=== PATIENT | female | born 1955 | race Caucasian/White ===

== ENCOUNTER → 2020-02-20 07:07 | Outpatient (CLI) | payer MEDICARE, OTHER, SELFPAY ==
--- NOTE | ~2020-02-20 | MR_ITS ---
EXAMINATION: MR shoulder RT wo con DATE: 02/20/2020 07:47 INDICATION: Right shoulder pain. Other right shoulder lesions. TECHNIQUE: Magnetic resonance imaging (MRI) of the right shoulder was performed without intravenous c ontrast. Sequences included axial PD-weighted FS FSE, coronal oblique PD-weighted FS FSE and T2-weigh willis FS FSE, and sagittal oblique T2-weighted FS FSE and T1-weighted FSE. COMPARISON: Right shoulder radiographs 02/14/2020 FINDINGS: Coracoacromial arch: The acromion undersurface is curved in morphology (type II). There is severe acromioclavicular joint osteoarthritis. There is moderate subacromial/subdeltoid bursitis. Rotator cuff: There is severe supraspinatus and infraspinatus tendinopathy. There is a near full-thickness bursal s ided tear of supraspinatus and infraspinatus tendons measuring 2.9 cm anterior to posterior by up to 7 mm proximal to distal. Teres minor tendon is normal. There is moderate subscapularis tendinopathy. There is no asymmetric fatty atrophy of the rotator cuff muscle bellies. There is degenerative cystic change in greater tuberosity. Biceps tendon and glenoid labrum: Biceps tendon is in bicipital groove. There is a partial tear of intra-articular biceps tendon. There is degeneration of glenoid labrum without well-defined tear. Fluid: There is a small glenohumeral joint effusion. Bones/cartilage: There is cartilage surface irregularity of glenoid and humeral head. IMPRESSION: 1. Severe rotator cuff tendinopathy with near full-thickness bursal sided tear of supraspinatus and i nfraspinatus tendons. 2. Partial tear of intra-articular biceps tendon. 3. Mild glenohumeral joint chondrosis. 4. Severe acromioclavicular joint osteoarthritis. 5. Small glenohumeral joint effusion. 6. Moderate subacromial/subdeltoid bursitis. Reviewed, dictated and finalized at location A. CART ATTENDANT IMPRESSION: 1. Severe rotator cuff tendinopathy with near full-thickness bursal sided tear of supraspinatus and infraspinatus tendons. 2. Partial tear of intra-articular biceps tendon. 3. Mild glenohumeral joint chondrosis. 4. Severe acromioclavicular joint osteoarthritis. 5. Small glenohumeral joint effusion. 6. Moderate subacromial/subdeltoid bursitis.
== END ==
PROVIDERS: PCP Internal Medicine; Visit Provider Orthopaedic Surgery
DX: M75.81 Other shoulder lesions, right shoulder (principal); M19.011 Primary osteoarthritis, right shoulder; M75.51 Bursitis of right shoulder; M25.411 Effusion, right shoulder
CPT/HCPCS: 73221

== ENCOUNTER 2020-03-25 13:22 | Outpatient (CLI) | payer MEDICARE, SELFPAY ==
--- NOTE | 2020-03-25 13:24 | ECG_ITS ---
Measurements Intervals [place] Rate: 76 P: 60 NC: 187 QRS: -3 QRSD: 110 T: 60 QT: 396 QTc: 447 Interpretive Statements SINUS RHYTHM INCOMPLETE RIGHT BUNDLE BRANCH BLOCK CANNOT RULE OUT SEPTAL INFARCT, AGE INDETERMINATE ABNORMAL ECG Electronically Signed On 03-25-2020 15:24:24 MILITARY SCIENCE TEACHER by Neo Starks D.O.
== END 2020-03-25 13:23 | disposition home or self-care (01) ==
LOC: ANHSURGERY 13:24
PROVIDERS: PCP Internal Medicine; Visit Provider Orthopaedic Surgery
DX: Z01.818 Encounter for other preprocedural examination (principal); I10 Essential (primary) hypertension; I45.10 Unspecified right bundle-branch block
CPT/HCPCS: 93005

== ENCOUNTER 2020-03-30 00:50 | Outpatient (CLI) | payer MEDICARE, SELFPAY ==
[2020-03-30 19:31] LABS: SARS-CoV-2 RNA PCR Negative
== END 2020-03-30 00:51 | disposition home or self-care (01) ==
LOC: ANHCOVIDDT 00:50
PROVIDERS: PCP Internal Medicine; Visit Provider Orthopaedic Surgery
DX: Z01.818 Encounter for other preprocedural examination (principal); Z20.828 Contact with and (suspected) exposure to other viral communicable diseases
CPT/HCPCS: 87635; C9803; U0003

== ENCOUNTER 2020-04-02 00:04 | Day surgery (SDC) | payer MEDICARE, SELFPAY ==
[2020-03-25 11:18] VITALS: BMI 29.2
--- NOTE | 2020-04-01 12:52 | WPDANESEPPF ---
Anes - Initial Pre Proc Eval Procedure: Operation Date: 04/02/20 07:30 Proposed Procedures p Right Shoulder Arthroscopy, Rotator Cuff Repair, Subacromial Decompression, Proceed As Indicated - Shawn Erickson MD Date/Time: 04/01/20 12:52 Surgeon: Shawn Erickson MD Pre Op Diagnosis: Right Shoulder Rotator Cuff Tear Patient Data Age: 65 Gender: F Height: 1.6 m Weight: 74.85 kg Allergies Allergy/AdvReac Type Severity Reaction Status Date / Time codeine Allergy Unknown Itching Verified 04/02/20 06:25 hydroxychloroquine Allergy Unknown SWELLING Verified 04/02/20 06:25 [From Plaquenil] AND HIVES Home Medications Medication Instructions Recorded Confirmed Type alprazolam 0.5 mg tablet 0.5 mg PO .PRN tablet 02/27/19 04/02/20 History atorvastatin 40 mg tablet 40 mg PO DAILY 02/27/19 04/02/20 History citalopram 40 mg tablet 40 mg PO DAILY 02/27/19 04/02/20 History levothyroxine 75 mcg tablet 75 mcg PO DAILY 02/27/19 04/02/20 History losartan 50 mg tablet 100 mg PO DAILY 02/27/19 04/02/20 History meloxicam 15 mg tablet 15 mg PO DAILY 02/27/19 04/02/20 History sulfadiazine 500 mg tablet 500 mg PO 6XD 02/27/19 04/02/20 History cholecalciferol (vitamin D3) 50 mcg PO DAILY 03/25/20 04/02/20 History cyanocobalamin (vitamin B-12) 1,000 mcg PO DAILY 03/25/20 04/02/20 History hydrocodone 5 mg-acetaminophen 325 1 - 2 tablet PO Q6H PRN #30 tablet 03/25/20 03/25/20 Rx mg tablet omega-3 fatty acids [Fish Oil] 1,000 mg PO DAILY 03/25/20 04/02/20 History rituximab [Rituxan] 10 mg IV Q4M 03/25/20 04/02/20 History vitamin E 400 unit PO DAILY 03/25/20 04/02/20 History Patient hx anesthesia problems: none Family hx anesthesia problems: none PMFSH Past Medical History Medical History (Updated 02/21/20 @ 09:45 by Shawn Erickson MD) Essential hypertension Hypothyroidism Rheumatoid arthritis Rheumatoid arthritis involving left knee Right rotator cuff tendonitis Rotator cuff tear, right Surgical History Surgical History (Updated 04/01/20 @ 12:52 by Evaristo Villar DO) History of tubal ligation Hx of fusion of cervical spine C4-5 Family History Family History Father Heart disease Mother Heart disease Sibling Rheumatoid arthritis Social History Social History Smoking packs per day: 0.5 Smoking cigarettes per day: 10.0 Years smoked: 15 Smoking pack-years: 7.50 Smoking status: Former smoker Tobacco type: cigarettes Smoking end date: 04/05/14 Alcohol intake: current Drinks per week: 7 Living arrangements: with family Spiritual care concerns: No Anes - Eval Final PreProcedure Day of Procedure 04/01/20 12:52 Patient weight: overweight Heart: regular rate and rhythm Lungs: clear to auscultation and normal air movement Airway: Mallampati scale class II Neurological: alert and oriented Last oral intake: >/= 8 hours ASA classification: III Emergent: no Anesthetic plan: proceed Anesthesia type and monitoring: general ETT and standard monitoring Informed Consent: The patient's anesthetic plan and its attendant risks and benefits were discussed with the patient/family/POA. Questions were solicited and answers provided to the satisfaction of the patient/family/POA.
--- NOTE | 2020-04-01 12:53 | WPDANESPNB ---
Anes - Peripheral Nerve Block Date/Time: 04/01/20 12:53 I have discussed with the patient/family/POA the placement of a peripheral nerve block for post-operative pain management, including associated risks, benefits, complications, and side effects. Alternative methods of post-operative analgesia were detailed. Questions were solicited and answers provided to the satisfaction of the patient/family/POA. Time-Out: A pre-procedural Time-Out was completed immediately before starting the procedure and confirmed: Patient Identification, Site, Procedure, Patient Position and the Availability of Requisite Equipment. Clinical Indications: Acute post-operative pain management requested by the operative surgeon. Nerve Block Insertion Note Anes-nerve block: interscalene right Patient position: supine Skin prep: chlorhexidine Needle: 22 gauge, stimulating, insulated echogenic needle. Needle length: 50 mm Technique: nerve stimulation lost at (mA) (0.3) and ultrasound Injectate: bupivacaine 0.5% with epi 5 mcg/ml (30cc) Observations: tolerated well Complications: none Procedure start time:: 719 Procedure end time:: 723
[2020-04-02] VITALS (8 sets, daily range): BP systolic 99–136; BP diastolic 50–72; PULSE 66–78; RESP 14–20; TEMP 36.3–36.5; O2SAT 92–96
[2020-04-02] MEDS: ACETAMINOPHEN 500 MG TABLET 1000 MG PO (06:42)
[2020-04-02] MEDS: LACTATED RINGERS 1,000 ML 30 ML IV CONT ×2 (06:42→10:34)
[2020-04-02] MEDS: KETOROLAC 15 MG/ML VIAL (*BKC) IV PUSH (06:48)
--- NOTE | 2020-04-02 06:52 | WPDHPUPDATE1 ---
History and Physical Update Update Date/Time: 04/02/20 06:52 History and Physical has been reviewed, including an updated exam of the patient. There are NO changes in the patient's condition. Risks, benefits, and alternatives have been discussed and questions answered. Patient agrees to proceed with procedure.
[2020-04-02] MEDS: ceFAZolin 2 GM/D5W 50 ML 2 GM/50 ML BAG IVPB (07:30)
--- NOTE | 2020-04-02 10:43 | P.OP_ITS ---
Procedure Note - Detailed Date of procedure: 04/02/20 Pre-op diagnosis: Right Shoulder Rotator Cuff Tear Post-op diagnosis: other (1. Right shoulder rotator cuff tear 2. Biceps tendon tear) Procedure performed: 1. Arthrosocopic rotator cuff repair. 2. Arthroscopic subacromial decompression. 3. Bicpes tenotomy Description of procedure: The tear was in the full-thickness. Complex pattern with mild retraction. The supraspinatus was fairly mobile. There was some delamination that was less mobile posteriorly. A thrid posterior tunnel was used for the posterior/ infraspinatus cuff. Two tunnels were used for the supraspinatus and a more anterior infraspinatus. Margin convergence was used posterior and anterior. There was some posterior tissue remaining on the tuberosity which was preserved. A rip stop technique was utilized. A previous acromioplasty had some prominence lateral and anterior. Modest acromioplasty was performed. High-grade partial tearing of the intra-articular biceps was confirmed consistent with the MRI. Biceps tenotomy was performed. Anesthesia: GETA and regional Surgeon: Shawn Erickson MD Director Of Exhibits: Terrie Joyner PA-C Estimated blood loss (mL): 20 Complications: None Disposition: PACU Findings: Physician talent acquisition assistant, Terrie Joyner PA-C, required for surgery; including patient positioning, draping, tissue retraction, maintaining instrument position, suture management, wound closure, and sling/ dressing placement. Operative detail: Preoperative antibiotics were given. An interscalene block was administered in the preoperative area. The patient was bought brought to the operating room. A general anesthetic was administered. The patient was carefully positioned in the lateral decubitus position. The head and neck were carefully positioned. The non operative extremity was also carefully positioned. The shoulder was prepped and draped in the usual sterile fashion. Examination was performed. Standard posterior and anterior arthroscopic portals were established. Inflow achieved with the arthroscopic pump using saline and epinephrine. The glenohumeral joint was carefully inspected. The biceps was partial torn. Tenotomy was performed.The subscapularis had a low grade partial articular tear. No treatment indicated. Attention was turned to the subacromial space. A complete bursectomy was performed. The rotator cuff and footprint were lightly debrided. A modest acromioplasty was performed. The tear configuration was carefully assessed. At this point, 3 tunnels were created at the rotator cuff. The ArthroTunneler technique was utilized. Three sutures were passed through each tunnel. All sutures were then passed through the cuff tissue. The sutures were tied arthroscopically. The arthroscopic instruments were removed. The wou nds were closed with 3-0 Monocryl subcuticular suture and steri strips. There were no complications. A sling was applied and the patient brought to the recovery room.
--- NOTE | 2020-04-02 11:17 | SUR.PHASEI ---
PT REMAINS SLEEPY. DOZING IN INTERVALS. DENIES PAIN OR NAUSEA AT THIS TIME.
--- NOTE | 2020-04-02 11:26 | SUR.PHASEI ---
PT RESTING QUIETLY. AWAKENS EASILY. DENIES PAIN OR NAUSEA. READY FOR A DRINK.
== END 2020-04-02 12:34 | disposition home or self-care (01) ==
PROVIDERS: PCP Internal Medicine; Visit Provider Orthopaedic Surgery
PROC: (CPT 29805; principal; 2020-04-02 07:30)
DX: M75.101 Unspecified rotator cuff tear or rupture of right shoulder, not specified as traumatic (principal); M75.81 Other shoulder lesions, right shoulder; G89.18 Other acute postprocedural pain; I10 Essential (primary) hypertension; E03.9 Hypothyroidism, unspecified; M06.9 Rheumatoid arthritis, unspecified; Z98.1 Arthrodesis status; Z87.891 Personal history of nicotine dependence
CPT/HCPCS: 29827; 29826; 64415; A4565; A9270; J0690; J1885; J2250; J3010; J7120

== ENCOUNTER 2020-09-06 16:24 | Outpatient (CLI) | payer MEDICARE, SELFPAY ==
--- NOTE | ~2020-09-06 | MR_ITS ---
EXAMINATION: MR shoulder RT wo con DATE: 09/06/2020 17:34 INDICATION: Right rotator cuff tear. TECHNIQUE: Magnetic resonance imaging (MRI) of the right shoulder was performed without intravenous c ontrast. Sequences included axial PD-weighted FS FSE, coronal oblique PD-weighted FS FSE and T2-weigh willis FS FSE, and sagittal oblique T2-weighted FS FSE and T1-weighted FSE. COMPARISON: Right shoulder MRI 02/20/2020, radiographs 02/14/2020 FINDINGS: Coracoacromial arch: The acromion undersurface is curved in morphology (type II). There are changes of acromioplasty. Ther e is mild osteoarthritis of acromioclavicular joint. There is moderate subacromial/subdeltoid bursiti s. Rotator cuff: There is a full-thickness tear of supraspinatus and infraspinatus tendons measuring 4.2 cm anterior t o posterior by 3.5 cm proximal to distal. There is a partial tear of teres minor at the myotendinous junction with small hematoma. There is mild subscapularis tendinopathy. There is mild fatty atrophy o f infraspinatus muscle belly. There is edema of the infraspinatus and teres minor muscle bellies. Biceps tendon and glenoid labrum: There are changes of biceps tendon tear and tenotomy. There is degeneration of the glenoid labrum wit hout well-defined tear. Fluid: There is a moderate-sized glenohumeral joint effusion. Bones/cartilage: There is posterior and superior subluxation of humeral head with respect to glenoid. There is cartila ge surface irregularity of glenoid and humeral head. There is edema-like marrow signal intensity in p osterior glenoid. IMPRESSION: 1. Recurrent full-thickness rotator cuff tear. 2. Grade 1 infraspinatus muscle strain. Grade 2 teres minor muscle strain. 3. Mild glenohumeral joint chondrosis. 4. Biceps tendon tear and tenotomy. 5. Moderate-sized glenohumeral joint effusion and moderate subacromial/subdeltoid bursitis. 6. Mild acromioclavicular joint osteoarthritis. Reviewed, dictated and finalized at location A. IMPRESSION: 1. Recurrent full-thickness rotator cuff tear. 2. Grade 1 infraspinatus muscle strain. Grade 2 teres minor muscle strain. 3. Mild glenohumeral joint chondrosis. 4. Biceps tendon tear and tenotomy. 5. Moderate-sized glenohumeral joint effusion and moderate subacromial/subdelto id bursitis. 6. Mild acromioclavicular joint osteoarthritis.
== END 2020-09-06 16:25 | disposition home or self-care (01) ==
PROVIDERS: PCP Internal Medicine; Visit Provider Orthopaedic Surgery
DX: M19.011 Primary osteoarthritis, right shoulder (principal); M75.101 Unspecified rotator cuff tear or rupture of right shoulder, not specified as traumatic; M25.411 Effusion, right shoulder; Z98.890 Other specified postprocedural states
CPT/HCPCS: 73221

== ENCOUNTER 2020-10-09 07:54 | Outpatient (CLI) | payer MEDICARE, SELFPAY ==
[2020-10-09 09:14] LABS: Basophils Absolute Auto 0.1 K/mm3 (0.0-0.1); Basophils Percent Auto 1.4 % (0.2-1.2); Eosinophils Absolute Auto 0.5 K/mm3 (0-0.3); Eosinophils Percent Auto 9.3 % (0-4.4); Hematocrit 44.2 % (37.0-47.0); Hemoglobin 14.5 g/dL (12.0-15.0); Immature Granulocyte Absolute 0.01 K/mm3 (0.00-0.031); Immature Granulocyte Percent A 0.2 % (0-0.5); Lymphocytes Absolute Auto 1.08 K/mm3 (0.9-3.2); Lymphocytes Percent Auto 21.5 % (18.3-44.2); Mean Corpuscular HGB Conc 32.8 g/dl (32-36); Mean Corpuscular Hemoglobin 31.4 pg (26-34); Mean Corpuscular Volume 95.7 fl (80-100); Mean Platelet Volume 10.3 fl (7.4-10.4); Monocytes Absolute Auto 0.7 K/mm3 (0.1-0.6); Monocytes Percent Auto 14.3 % (2.6-8.5); Neutrophils Absolute Auto 2.7 K/mm3 (1.3-6.7); Neutrophils Percent Auto 53.3 % (45.5-73.1); Platelet Count Result 232 k/mm3 (150-375); Red Blood Count 4.62 M/mm3 (4.2-5.4); Red Cell Distribution Width 12.1 % (11.5-14.5)
[2020-10-09 09:23] LABS: Anion Gap 7 mmol/L (8-16); Blood Urea Nitrogen 12 mg/dL (7-17); Calcium 10.1 mg/dL (8.4-10.2); Carbon Dioxide 27 mmol/L (22-30); Chloride 106 mmol/L (98-107); Estimated Glomerular Filt Rate > 60; Glucose 113 mg/dL (65-105); Potassium 4.1 mmol/L (3.4-5.0); Sodium 140 mmol/L (137-145)
== END 2020-10-09 07:55 | disposition home or self-care (01) ==
LOC: ANHSURGERY 07:57
PROVIDERS: Anesthesiology; PCP Internal Medicine; Visit Provider Orthopaedic Surgery
DX: Z01.818 Encounter for other preprocedural examination (principal); M12.811 Other specific arthropathies, not elsewhere classified, right shoulder; Z79.899 Other long term (current) drug therapy
CPT/HCPCS: 36415; 80048; 85025; 87081

== ENCOUNTER 2020-10-25 00:56 | Day surgery (SDC) | payer MEDICARE, SELFPAY ==
[2020-10-09 08:24] VITALS: BP 131/74; PULSE 69; RESP 16; TEMP 36.6; O2SAT 95; BMI 28.2
--- NOTE | 2020-10-24 14:15 | WPDANESEPPF ---
Anes - Initial Pre Proc Eval Procedure: Operation Date: 10/25/20 07:30 Proposed Procedures p Right Reverse Total Shoulder Arthroplasty - Shawn Erickson MD Date/Time: 10/24/20 14:15 Surgeon: Shawn Erickson MD Pre Op Diagnosis: rotator cuff arthropathy Patient Data Age: 65 Gender: F Height: 1.6 m Weight: 72.3 kg Last Vital Signs Temp 36.6 C 10/09/20 08:24 Pulse 69 10/09/20 08:24 Resp 16 10/09/20 08:24 BP 131/74 10/09/20 08:24 Pulse Ox 95 10/09/20 08:24 Allergies Allergy/AdvReac Type Severity Reaction Status Date / Time hydroxychloroquine Allergy Unknown SWELLING Verified 10/25/20 06:42 [From Plaquenil] AND HIVES codeine AdvReac Unknown Itching Verified 10/25/20 06:42 Home Medications Medication Instructions Recorded Confirmed Type alprazolam 0.5 mg tablet 0.5 mg PO QID PRN tablet 02/27/19 10/25/20 History atorvastatin 40 mg tablet 40 mg PO DAILY 02/27/19 10/09/20 History citalopram 40 mg tablet 40 mg PO QAM 02/27/19 10/09/20 History levothyroxine 75 mcg tablet 75 mcg PO QAM 02/27/19 10/09/20 History losartan 50 mg tablet 50 mg PO QAM 02/27/19 10/09/20 History meloxicam 15 mg tablet 15 mg PO QAM 02/27/19 10/09/20 History Rituxan 10 mg IV Q4M 03/25/20 10/09/20 History cholecalciferol (vitamin D3) 50 mcg PO DAILY 03/25/20 10/09/20 History cyanocobalamin (vitamin B-12) 1,000 mcg PO DAILY 03/25/20 10/09/20 History vitamin E 400 unit PO DAILY 03/25/20 10/09/20 History amlodipine 5 mg PO QAM 10/09/20 10/09/20 History krill oil 1,000 mg PO DAILY 10/09/20 10/09/20 History leflunomide 10 mg PO QAM 10/09/20 10/09/20 History magnesium oxide 400 mg PO DAILY 10/09/20 10/09/20 History spironolactone 25 mg PO QAM 10/09/20 10/09/20 History oxycodone-acetaminophen 5 mg-325 1 - 2 tablet PO Q4-6H PRN #40 10/14/20 Rx mg tablet tablet Patient hx anesthesia problems: none Family hx anesthesia problems: none PMFSH Past Medical History Medical History (Updated 10/24/20 @ 14:16 by Evaristo Villar DO) Essential hypertension Hypothyroidism Panic attack Rheumatoid arthritis Rheumatoid arthritis involving left knee Right rotator cuff tendonitis Rotator cuff tear, right Surgical History Surgical History (Updated 08/28/20 @ 15:23 by Shawn Erickson MD) History of repair of right rotator cuff (~04/02/20) RCR w/ SAD and Biceps tenotomy History of tubal ligation Hx of fusion of cervical spine C4-5 Family History Family History Father Heart disease Mother Heart disease Sibling Rheumatoid arthritis Social History Social History Smoking packs per day: 0.5 Smoking cigarettes per day: 10.0 Years smoked: 15 Smoking pack-years: 7.50 Smoking status: Former smoker Tobacco type: cigarettes Smoking end date: 03/04/16 Alcohol intake: current Drinks per week: 14 Alcohol use details: weekly Substance use: never Living arrangements: with family Additional living arrangements comments: Spiritual care concerns: No Anes - Eval Final PreProcedure Day of Procedure 10/24/20 14:15 Patient weight: overweight Heart: regular rate and rhythm Lungs: clear to auscultation and normal air movement Airway: Mallampati scale class II Neurological: alert and oriented Last oral intake: >/= 8 hours ASA classification: III Emergent: no Anesthetic plan: proceed Anesthesia type and monitoring: general ETT and standard monitoring Informed Consent: The patient's anesthetic plan and its attendant risks and benefits were discussed with the patient/family/POA. Questions were solicited and answers provided to the satisfaction of the patient/family/POA.
--- NOTE | 2020-10-24 14:22 | WPDANESPNB ---
Anes - Peripheral Nerve Block Date/Time: 10/24/20 14:22 I have discussed with the patient/family/POA the placement of a peripheral nerve block for post-operative pain management, including associated risks, benefits, complications, and side effects. Alternative methods of post-operative analgesia were detailed. Questions were solicited and answers provided to the satisfaction of the patient/family/POA. Time-Out: A pre-procedural Time-Out was completed immediately before starting the procedure and confirmed: Patient Identification, Site, Procedure, Patient Position and the Availability of Requisite Equipment. Clinical Indications: Acute post-operative pain management requested by the operative surgeon. Nerve Block Insertion Note Anes-nerve block: interscalene right Patient position: supine Skin prep: chlorhexidine Needle: 22 gauge, stimulating, insulated echogenic needle. Needle length: 50 mm Technique: ultrasound Injectate: bupivacaine 0.5% with epi 5 mcg/ml (30cc- no epi) Observations: tolerated well Complications: none Procedure start time:: 723 Procedure end time:: 726
[2020-10-25] VITALS (9 sets, daily range): BP systolic 88–119; BP diastolic 43–58; PULSE 67–95; RESP 15–17; TEMP 35.9–36.2; O2SAT 91–98
--- NOTE | ~2020-10-25 | XR_ITS ---
EXAMINATION: XR shoulder RT min 2V DATE: 10/25/2020 10:17 INDICATION: Persistent right total shoulder arthroplasty TECHNIQUE: AP and lateral views of the right shoulder were obtained. COMPARISON: None FINDINGS: Reverse right total shoulder arthroplasty which is in near-anatomic alignment. No fracture. Mild acro mioclavicular osteoarthritis. Expected small amount of postoperative gas in the surrounding soft tiss ues. Visualized portion of the right lung are clear. IMPRESSION: Reverse right total shoulder arthroplasty, negative for postoperative purposes. Reviewed, dictated and finalized at location A.
[2020-10-25] MEDS: ACETAMINOPHEN 500 MG TABLET 1000 MG PO (06:50)
[2020-10-25] MEDS: LACTATED RINGERS 1,000 ML 30 ML IV CONT ×2 (07:10→10:07)
[2020-10-25] MEDS: TRANEXAMIC ACID 1,000MG/ISO100 1,000 MG/100 ML BAG 200 MG IVPB (07:13)
--- NOTE | 2020-10-25 07:25 | WPDHPUPDATE1 ---
History and Physical Update Update Date/Time: 10/25/20 07:25 History and Physical has been reviewed, including an updated exam of the patient. There are NO changes in the patient's condition. Risks, benefits, and alternatives have been discussed and questions answered. Patient agrees to proceed with procedure.
[2020-10-25] MEDS: ceFAZolin 2 GM/D5W 50 ML 2 GM/50 ML BAG IVPB (07:30)
[2020-10-25] MEDS: VANCOMYCIN HCL 1,000 MG VIAL 1000 MG TOPICAL (09:36)
--- NOTE | 2020-10-25 10:22 | SUR.PHASEI ---
1022: simple mask removed.
--- NOTE | 2020-10-25 11:44 | SUR.PHASEII ---
LUNCH ORDERED; PT CALLED.
--- NOTE | 2020-10-25 11:48 | W.PM.PROC2 ---
Procedure Note - Detailed Date of Procedure 10/25/20 Pre-op Diagnosis Rotator cuff arthropathy, right shoulder Massive rotator cuff tear status post rotator cuff repair, right shoulder Post-op Diagnosis same Procedure Performed Reverse total shoulder arthroplasty, right. Surgeon Shawn Erickson MD Bleach Supervisor Terrie Joyner PA-C Anesthesia general and regional Findings Massive tear without significant healing of the previous repair. Posterior rotator cuff intact. Mild degenerative changes. Good bone quality. Description of Procedure Physician pediatric medical assistant, Terrie Joyner PA-C, required for surgery; including patient positioning, draping, tissue retraction, maintaining instrument position, wound closure, and dressing placement. OPERATIVE DETAILS: The patient was given an interscalene block in the preoperative area. Preoperative antibiotics were given. The patient was transferred to the operating room and a general anesthetic was administered. The beach chair position was used at 45 degrees. All bony prominences were padded. The head was carefully stabilized on the [facility] head of advertising. A sterile prep and drape was performed in the usual manner with Chloraprep. A longitudinal incision was created at the anterior shoulder just lateral to the deltopectoral interval. Careful dissection was performed to expose the interval and protect the cephalic vein. The vein was retracted medially. Several vein branches proximally were friable and scarred in. They required suture ligation. The upper border of the pectoralis was released only minimally. Anterior circumflex vessel branches were suture ligated. The biceps absent. A subscapularis tenotomy was performed. The inferior capsule was released, exposing the humeral head. Osteophytes were removed. Care was taken to stay on bone to protect the axillary nerve. The anatomic head cut was taken with the oscillating saw. Sounding and broaching was performed. The neck anteversion and inclination were carefully assessed. Head sizing and offset were determined.The cut protector was placed, and attention was turned to the glenoid. Retractors were placed. Releases were carried out for exposure. The subscapularis was mobilized, the inferior capsule and long head of triceps released, and the superior and middle glenohumeral ligaments released as well. Labral tissue was resected as needed. The sizing template was used to assess the baseplate position low on the glenoid. A guide pin was placed. The two step reaming system was used. Minimal reaming was used to accomplish a flat surface without violating the subchondral bone. No version correction added, according to preoperative templating. The central post was drilled. The real component was impacted into position. Supplemental screws were placed. The glenosphere was placed with the locking screw. The humeral components were trialed. The real humeral stem and tray, and insert were impacted into position. The shoulder was copiously irrigated periodically with pulsatile lavage. The shoulder was reduced and the subscapularis repaired with number 5 Ethibond suture modified miguel Satya sutures. The biceps tenodesis was incorporated with the pectoralis tendon repair. The deltopectoral space was reapproximated with number 2 Vicryl. The remained tissue was closed with 0 Quill and 2-0 Quill running suture and steri-strips. A sterile dressing and shoulder immobilizer was placed. The patient was transferred to the recovery room. Implants Miguel Aequalis reversed glenoid base plate 25mm, reversed insert 6mm thickness; Aequalis Ascend Flex humeral stem size 1B. Aequalis Reversed II glenoid sphere 36 diameter 10 degree lateralized; Reversed tray low offset. Estimated Blood Loss -200.0 Drains No Complications No immediate complications Condition stable Disposition PACU
--- NOTE | 2020-10-25 13:44 | SUR.PHASEII ---
PHYSICAL THERAPIST YAMILET WORKED WITH PATIENT. DR. KELLY CALLED TO RELAY PATIENT HAD PHYSICAL THERAPY AND MET ANESTHESIA CRITERIA FOR DISCHARGE. PATIENT ATE LIGHT LUNCH. DR. KELLY CAME TO SPEAK WITH PATIENT AND SPOUSE.
--- NOTE | 2020-10-25 13:45 | SUR.PHASEII ---
PATIENT ASSISTED GETTING DRESSED BY THIS RN AND .
== END 2020-10-25 13:05 | disposition home or self-care (01) ==
PROVIDERS: PCP Internal Medicine; Visit Provider Orthopaedic Surgery
PROC: (CPT 23472; principal; 2020-10-25 07:30)
DX: M75.101 Unspecified rotator cuff tear or rupture of right shoulder, not specified as traumatic (principal); M12.811 Other specific arthropathies, not elsewhere classified, right shoulder; E03.9 Hypothyroidism, unspecified; M06.9 Rheumatoid arthritis, unspecified; F41.0 Panic disorder [episodic paroxysmal anxiety]; Z87.891 Personal history of nicotine dependence; G89.18 Other acute postprocedural pain; I10 Essential (primary) hypertension
CPT/HCPCS: 64415; 23472; 36415; 73030; 86850; 86900; 86901; 97110; 97161; A4565; A9270; C1776; J0171; J0330; J0690; J1100; J1885; J2250; J2370; J2405; J2704; J2710; J2795; J3010; J3370; J7120

== ENCOUNTER 2021-12-11 01:55 | Day surgery (SDC) | payer MEDICARE, SELFPAY ==
[2021-12-04 09:45] VITALS: BMI 28.9
[2021-12-11 08:31] VITALS: BP 133/66; PULSE 82; RESP 16; TEMP 36.4; O2SAT 97
[2021-12-11] MEDS: LACTATED RINGERS 1,000 ML 150 ML IV CONT (08:37)
--- NOTE | 2021-12-11 08:48 | WPDANESEPPF ---
Anes - Initial Pre Proc Eval Procedure: Operation Date: 12/11/21 09:30 Proposed Procedures p Colonoscopy - Db De La Paz MD Date/Time: 12/11/21 08:48 Surgeon: Db De La Paz MD Pre Op Diagnosis: diarrhea Patient Data Age: 66 Gender: F Height: 1.6 m Weight: 74.2 kg Last Vital Signs Temp 97.5 F L 12/11/21 08:31 Pulse 82 12/11/21 08:31 Resp 16 12/11/21 08:31 BP 133/66 12/11/21 08:31 Pulse Ox 97 12/11/21 08:31 O2 Del Method Room Air 12/11/21 08:31 Allergies Allergy/AdvReac Type Severity Reaction Status Date / Time hydroxychloroquine Allergy Unknown SWELLING Verified 12/11/21 08:27 [From Plaquenil] AND HIVES codeine AdvReac Unknown Itching Verified 12/11/21 08:27 Home Medications Medication Instructions Recorded Confirmed Type alprazolam 0.5 mg tablet (Xanax) 0.5 mg PO QID PRN Anxiety 02/27/19 12/11/21 History atorvastatin 40 mg tablet 40 mg PO DAILY 02/27/19 12/11/21 History citalopram 40 mg tablet (Celexa) 40 mg PO QAM 02/27/19 12/11/21 History levothyroxine 75 mcg tablet 75 mcg PO QAM 02/27/19 12/11/21 History (Synthroid) losartan 50 mg tablet 50 mg PO QAM 02/27/19 12/11/21 History cholecalciferol (vitamin D3) 50 50 mcg PO DAILY 03/25/20 12/11/21 History mcg (2,000 unit) tablet cyanocobalamin (vitamin B-12) 1,000 mcg PO DAILY 03/25/20 12/11/21 History 1,000 mcg tablet rituximab 10 mg/mL 10 mg IV Q4M 03/25/20 12/11/21 History concentrate,intravenous (Rituxan) vitamin E 400 unit tablet 400 unit PO DAILY 03/25/20 12/11/21 History amlodipine 5 mg tablet 5 mg PO QAM 10/09/20 12/11/21 History krill oil 500 mg capsule 1,000 mg PO DAILY 10/09/20 12/11/21 History leflunomide 10 mg tablet 10 mg PO QAM 10/09/20 12/11/21 History magnesium oxide 400 mg PO DAILY 10/09/20 12/11/21 History spironolactone 25 mg tablet 25 mg PO QAM 10/09/20 12/11/21 History Patient hx anesthesia problems: none Family hx anesthesia problems: none Results Review: All pre-operative results and documents have been reviewed as part of the pre-operative evaluation. [facility] Past Medical History Medical History (Updated 03/12/21 @ 17:22 by Shawn Erickson MD) Essential hypertension Hypothyroidism Panic attack Rheumatoid arthritis Rheumatoid arthritis involving left knee Right rotator cuff tendonitis Rotator cuff tear, right Surgical History Surgical History (Updated 03/12/21 @ 17:22 by Shawn Erickson MD) History of repair of right rotator cuff (~04/02/20) RCR w/ SAD and Biceps tenotomy History of tubal ligation Hx of fusion of cervical spine C4-5 Status post reverse total arthroplasty of right shoulder Family History Family History Father Heart disease Mother Heart disease Sibling Rheumatoid arthritis Social History Social History (Updated 12/04/21 @ 09:59 by Eliana Orellana RN) Smoking packs per day: 0.5 Smoking cigarettes per day: 10.0 Years smoked: 15 Smoking pack-years: 7.50 Smoking status: Former smoker Tobacco type: cigarettes Smoking end date: 03/04/16 Alcohol intake: current Drinks per week: 14 Alcohol use details: weekly Substance use: never Living arrangements: with family Additional living arrangements comments: Spiritual care concerns: No Anes - Eval Final PreProcedure Day of Procedure 12/11/21 08:48 Patient weight: normal Heart: regular rate and rhythm Lungs: clear to auscultation Airway: Mallampati scale class II Neurological: alert and oriented Last oral intake: >/= 8 hours ASA classification: III Emergent: no Anesthetic plan: proceed Anesthesia type and monitoring: general GIVS and standard monitoring Results Review: All pre-operative results and documents have been reviewed as part of the pre-operative evaluation. Informed Consent: The patient's anesthetic plan and its attendant risks and benefits were discussed with the patient/fam
--- NOTE | 2021-12-11 08:53 | PM.IMHP ---
H&P: HPI History of Present Illness Date/Time: 12/11/21 08:53 Chief Complaint: Diarrhea Narrative: this is a 66-year-old white female patient referred for colonoscopy. Patient reports a history of travel to [place] in May of this year. In July she began to have diarrhea that has persisted. She states she has watery stool several times a day. This does not wake her up at night. She has no abdominal pain. She has no bleeding. She states stool cultures were obtained found to be negative. She has had no recent change in medications. Currently takes Imodium AD for relief. She has also tried probiotics with no relief of symptoms. She is referred for colonoscopy at this time. She has had a previous unremarkable colonoscopy performed for screening purposes in the past. Review of Systems Review of Systems: Review of systems noncontributory. [facility] Past Medical History Medical History (Updated 12/11/21 @ 08:55 by Db De La Paz MD) Essential hypertension Hypothyroidism Panic attack Rheumatoid arthritis Rheumatoid arthritis involving left knee Right rotator cuff tendonitis Rotator cuff tear, right Surgical History Surgical History (Updated 03/12/21 @ 17:22 by Shawn Erickson MD) History of repair of right rotator cuff (~04/02/20) RCR w/ SAD and Biceps tenotomy History of tubal ligation Hx of fusion of cervical spine C4-5 Status post reverse total arthroplasty of right shoulder Family History Family History Father Heart disease Mother Heart disease Sibling Rheumatoid arthritis Social History Social History (Updated 12/04/21 @ 09:59 by Eliana Orellana RN) Smoking packs per day: 0.5 Smoking cigarettes per day: 10.0 Years smoked: 15 Smoking pack-years: 7.50 Smoking status: Former smoker Tobacco type: cigarettes Smoking end date: 03/04/16 Alcohol intake: current Drinks per week: 14 Alcohol use details: weekly Substance use: never Living arrangements: with family Additional living arrangements comments: Spiritual care concerns: No Meds Home Medications and Allergies Home Medications Medication Instructions Recorded Confirmed Type alprazolam 0.5 mg tablet (Xanax) 0.5 mg PO QID PRN Anxiety 02/27/19 12/11/21 History atorvastatin 40 mg tablet 40 mg PO DAILY 02/27/19 12/11/21 History citalopram 40 mg tablet (Celexa) 40 mg PO QAM 02/27/19 12/11/21 History levothyroxine 75 mcg tablet 75 mcg PO QAM 02/27/19 12/11/21 History (Synthroid) losartan 50 mg tablet 50 mg PO QAM 02/27/19 12/11/21 History cholecalciferol (vitamin D3) 50 50 mcg PO DAILY 03/25/20 12/11/21 History mcg (2,000 unit) tablet cyanocobalamin (vitamin B-12) 1,000 mcg PO DAILY 03/25/20 12/11/21 History 1,000 mcg tablet rituximab 10 mg/mL 10 mg IV Q4M 03/25/20 12/11/21 History concentrate,intravenous (Rituxan) vitamin E 400 unit tablet 400 unit PO DAILY 03/25/20 12/11/21 History amlodipine 5 mg tablet 5 mg PO QAM 10/09/20 12/11/21 History krill oil 500 mg capsule 1,000 mg PO DAILY 10/09/20 12/11/21 History leflunomide 10 mg tablet 10 mg PO QAM 10/09/20 12/11/21 History magnesium oxide 400 mg PO DAILY 10/09/20 12/11/21 History spironolactone 25 mg tablet 25 mg PO QAM 10/09/20 12/11/21 History Allergies Allergy/AdvReac Type Severity Reaction Status Date / Time hydroxychloroquine Allergy Unknown SWELLING Verified 12/11/21 08:27 [From Plaquenil] AND HIVES codeine AdvReac Unknown Itching Verified 12/11/21 08:27 Vital Signs Vital Signs - 24 hr 12/11/21 08:31 Temperature 97.5 F L Pulse Rate 82 Respiratory Rate 16 Blood Pressure 133/66 Pulse Oximetry 97 Oxygen Delivery Room Air Exam Narrative: Physical exam reveals patient to be alert. Vital signs stable. HEENT exam is unremarkable. Patient is anicteric. Lungs are clear to auscultation and percussion. Heart is without murmur or extra sounds. Ab
[2021-12-11 09:21] VITALS: BP 114/49; PULSE 82; RESP 16; O2SAT 97
[2021-12-11 09:31] VITALS: BP 107/61; PULSE 84; RESP 20; O2SAT 99
[2021-12-11 09:41] VITALS: BP 126/57; PULSE 75; RESP 21; O2SAT 96
== END 2021-12-11 09:54 | disposition home or self-care (01) ==
PROVIDERS: PCP Internal Medicine; Visit Provider Internal Medicine Gastroenterology
PROC: 0DJD8ZZ Inspection of Lower Intestinal Tract, Via Natural or Artificial Opening Endoscopic (ICD-10-PCS; CPT 45378; principal; 2021-12-11 09:30)
DX: R19.7 Diarrhea, unspecified (principal); K64.8 Other hemorrhoids; I10 Essential (primary) hypertension; E03.9 Hypothyroidism, unspecified; M06.9 Rheumatoid arthritis, unspecified; Z98.1 Arthrodesis status; Z87.891 Personal history of nicotine dependence
CPT/HCPCS: 45380; 88305; J2704; J7120

== ENCOUNTER → 2021-12-24 13:55 | Outpatient (CLI) | payer MEDICARE, SELFPAY ==
--- NOTE | ~2021-12-24 | MM_ITS ---
EXAMINATION: MM screening pearl BI w tyson HISTORY: Screening mammogram, family history of breast cancer in her sister. TECHNIQUE: Craniocaudal and mediolateral oblique 3-D tomosynthesis images were obtained and synthetic 2-D images were generated. CAD analysis was submitted and interpreted. COMPARISON: 02/22/2017 BREAST PARENCHYMAL COMPOSITION: The breasts are almost entirely fatty. FINDINGS: There is no suspicious mass, calcification, or architectural distortion to suggest malignan cy in either breast. There has been no suspicious interval change. IMPRESSION: 1. No mammographic evidence of malignancy. 2. Recommend routine screening mammography in one year. BI-RADS Category 1: Negative Reviewed, dictated and finalized at location A.
== END ==
PROVIDERS: PCP Internal Medicine; Visit Provider Internal Medicine
DX: Z12.31 Encounter for screening mammogram for malignant neoplasm of breast (principal)
CPT/HCPCS: 77063; 77067

== ENCOUNTER → 2022-02-18 09:41 | Outpatient (CLI) | payer MEDICARE, SELFPAY ==
--- NOTE | ~2022-02-18 | XR_ITS ---
EXAMINATION: XR small bowel follow through DATE: 02/18/2022 10:47 INDICATION: Diarrhea, bloating and abdominal pain. TECHNIQUE: Network Security Officer radiograph(s) of the abdomen was/were obtained. Oral contrast was administered, and sequential radiographs of the abdomen were obtained until oral contrast was noted to be in the proxi mal colon. Spot fluoroscopic images of the small bowel were obtained. Fluoroscopy exposure time was 3 .0 minutes. 339 fluoroscopic images of the abdomen and pelvis and 3 overhead radiographs were obtaine d. COMPARISON: None. FINDINGS: On the 15 minute overhead radiograph there is prominent contrast distention stomach with reflux of a moderate amount of contrast to the level of the mid thoracic esophagus. Transit time from the stomach to proximal colon was approximately 30 minutes. There is normal caliber and mucosal fold pattern thr oughout the small bowel. The cecum and terminal ileum are positioned in the deep pelvis along side a few additional loops of small bowel precluding clear visualization of the terminal ileum. The proxima l ascending colon appears stretched over the right ilium/innominate bone with appearance of longitudi nal folds within the decompressed and with relatively ahaustral pattern when transiently filled with contrast. No tethering or abnormal mass effect observed upon the small bowel with real-time fluorosco py. IMPRESSION: 1. Caudal position within the deep pelvis of the cecum and terminal ileum which obscures the terminal ileum. The more proximal small bowel appears normal with normal mucosal pattern and no obstruction. 2. Segment of proximal ascending colon which is intermittently decompressed with a haustral pattern w hich may be an artifact of the caudal positioning of the cecum with a descending colon stretched acro ss the caudal margin of the ilium. 3. Gastroesophageal reflux. Reviewed, dictated and finalized at location B. MAPPER IMPRESSION: 1. Caudal position within the deep pelvis of the cecum and terminal ileum which obscures the terminal ileum. The more proximal small bowel appears normal with normal mucosal pattern and no obstruction. 2. Segment of proximal ascending colon which is intermittently decompressed wit h a haustral pattern which may be an artifact of the caudal positioning of the cecum with a descending colon stretched across the caudal margin of the ilium. 3. Gastroesophageal reflux.
== END ==
PROVIDERS: PCP Internal Medicine; Visit Provider Internal Medicine Gastroenterology
DX: R19.7 Diarrhea, unspecified (principal); R14.0 Abdominal distension (gaseous); K21.9 Gastro-esophageal reflux disease without esophagitis
CPT/HCPCS: 74250

== ENCOUNTER 2022-03-09 11:17 | Emergency (ER) | payer MEDICARE, SELFPAY ==
--- NOTE | 2022-03-09 11:21 | ED.BACK ---
HPI - Back Pain/Injury General Chief Complaint: Back Pain/Injury Stated Complaint: Back Pain Time Seen by Provider: 03/09/22 11:54 Source: patient, family (), RN notes reviewed and old records reviewed Mode of arrival: ambulatory Limitations: no limitations History of Present Illness HPI Narrative: [age] year female presents to the [facility] with left lower back pain. States this started Wednesday, 5 days ago. Pain to the left upper buttock. The pain is with movement, changing of position. No saddle anesthesia. No loss retention of bowel or bladder. No injury. No midline tenderness. MD elicited complaint: back pain Onset (ago): day(s) (5) Related Data Home Medications Medication Instructions Recorded Confirmed alprazolam 0.5 mg tablet (Xanax) 0.5 mg PO QID PRN Anxiety 02/27/19 03/09/22 atorvastatin 40 mg tablet 40 mg PO DAILY 02/27/19 03/09/22 citalopram 40 mg tablet (Celexa) 40 mg PO QAM 02/27/19 03/09/22 levothyroxine 75 mcg tablet 75 mcg PO QAM 02/27/19 03/09/22 (Synthroid) losartan 50 mg tablet 50 mg PO QAM 02/27/19 03/09/22 cholecalciferol (vitamin D3) 50 50 mcg PO DAILY 03/25/20 03/09/22 mcg (2,000 unit) tablet cyanocobalamin (vitamin B-12) 1,000 mcg PO DAILY 03/25/20 03/09/22 1,000 mcg tablet rituximab 10 mg/mL 10 mg IV Q4M 03/25/20 03/09/22 concentrate,intravenous (Rituxan) vitamin E 400 unit tablet 400 unit PO DAILY 03/25/20 03/09/22 amlodipine 5 mg tablet 5 mg PO QAM 10/09/20 03/09/22 leflunomide 10 mg tablet 10 mg PO QAM 10/09/20 03/09/22 spironolactone 25 mg tablet 25 mg PO QAM 10/09/20 03/09/22 celecoxib 200 mg capsule 200 mg PO DAILY 02/11/22 03/09/22 estradiol 0.5 mg tablet 0.5 mg PO DAILY 02/11/22 03/09/22 Allergies Allergy/AdvReac Type Severity Reaction Status Date / Time hydroxychloroquine Allergy Unknown SWELLING Verified 03/09/22 11:18 [From Plaquenil] AND HIVES codeine AdvReac Unknown Itching Verified 03/09/22 11:18 Review of Systems Review of Systems: All systems reviewed & are unremarkable except as noted in HPI and below Constitutional: Constitutional: Reports no additional constitutional complaints and Denies weakness Eyes: Eyes: Reports no additional eye complaints ENT: Reports system reviewed and no additional complaints, except as documented Cardiovascular: Cardiovascular: Reports no additional cardiovascular complaints and Denies chest pain Respiratory: Respiratory: Reports no additional respiratory complaints Gastrointestinal: Gastrointestinal: Reports no additional gastrointestinal complaints and Denies abdominal pain Genitourinary: Genitourinary: Reports no additional female genitourinary complaints, Denies urinary incontinence and Denies urinary urgency Musculoskeletal: Musculoskeletal: Reports as per HPI, Reports back pain and Denies numbness Integumentary/Breasts: Skin/Breast: Reports system reviewed and no additional complaints, except as docu Neurologic: Reports system reviewed and no additional complaints, except as documented, Denies focal weakness, Denies numbness and Denies weakness Psychiatric: Psychiatric: Reports no additional psychiatric complaints Allergic/Immunologic: Allergic/Immunologic: Reports no additional allergic/immunologic complaints PMFSH Past Medical History Medical History (Updated 03/09/22 @ 12:00 by Chanel Weber APRN) Essential hypertension Hypothyroidism Panic attack Rheumatoid arthritis Rheumatoid arthritis involving left knee Right rotator cuff tendonitis Rotator cuff tear, right Surgical History Surgical History History of repair of right rotator cuff (~04/02/20) RCR w/ SAD and Biceps tenotomy History of tubal ligation Hx of fusion of cervical spine C4-5 Status post reverse total arthroplasty of right shoulder Family History Family History Father Heart disease Mother Heart disease
[2022-03-09 11:25] VITALS: BP 124/69; PULSE 86; RESP 12; TEMP 36.4; O2SAT 97
== END 2022-03-09 12:08 | disposition home or self-care (01) ==
PROVIDERS: Emergency Provider Nurse Practitioner; PCP Internal Medicine
DX: M54.32 Sciatica, left side (principal); Z87.891 Personal history of nicotine dependence; I10 Essential (primary) hypertension; E03.9 Hypothyroidism, unspecified; M06.9 Rheumatoid arthritis, unspecified; F41.0 Panic disorder [episodic paroxysmal anxiety]
CPT/HCPCS: 99213; G0463

== ENCOUNTER → 2022-03-12 14:53 | Outpatient (CLI) | payer MEDICARE, SELFPAY ==
--- NOTE | ~2022-03-12 | XR_ITS ---
XR lumbar spine 2-3V 03/12/2022 15:13 Indication: Low back pain Procedure: 3 views lumbar spine Comparison: 03/22/2017 Findings: There is disc narrowing at L5-S1. Vertebral body heights are maintained. No acute fracture or traumatic malalignment. Pedicles are intact. No evidence for spondylolisthesis. There is mild face t hypertrophy at L4-5 and L5-S1. Impression: 1: Mild-moderate lower lumbar spondylosis. Reviewed, dictated and finalized at location A. ICAL PUNCH OPERATOR Impression: 1: Mild-moderate lower lumbar spondylosis.
== END ==
PROVIDERS: PCP Internal Medicine; Visit Provider Nurse Practitioner
DX: M47.896 Other spondylosis, lumbar region (principal)
CPT/HCPCS: 72100

== ENCOUNTER 2022-03-31 07:41 | Outpatient (CLI) | payer MEDICARE, SELFPAY ==
--- NOTE | ~2022-03-31 | CT_ITS ---
CT Abdomen and Pelvis with contrast. History: Diarrhea. Spiral CT of the abdomen and pelvis was performed after the administration of intravenous contrast. 1 00 cc of Omnipaque 350 was administered intravenously without complication. Dose reduction technique was used on this scan by utilizing automated exposure control and iterative reconstruction technique. The dose-length product (DLP) was 413.92 mGy-cm. Findings: Scans through the lung bases demonstrate mild atelectatic change. The liver, spleen, pancreas, gallbladder, adrenals and kidneys are within normal limits. No evidence of aortic aneurysm. No lymphadenopathy is seen. There is no evidence of bowel obstruction. There is no evidence to suggest acute appendicitis or dive rticulitis. Images through the pelvis were performed. Urinary bladder unremarkable. No adnexal mass evident. No a scites. No ascites is seen. Impression: No significant abnormalities seen. Reviewed, dictated and finalized at [facility]. LE NEEDLE STITCHER Impression: No significant abnormalities seen.
[2022-03-31 07:58] LABS: Estimated Glomerular Filt Rate > 60
== END 2022-03-31 07:42 | disposition home or self-care (01) ==
LOC: ANHIMG 07:42
PROVIDERS: PCP Internal Medicine; Visit Provider Nurse Practitioner Family
DX: R19.7 Diarrhea, unspecified (principal)
CPT/HCPCS: 74177; Q9967

== ENCOUNTER → 2022-04-09 15:04 | Outpatient (CLI) | payer MEDICARE, SELFPAY ==
--- NOTE | ~2022-04-09 | MR_ITS ---
EXAMINATION: MR lumbar spine wo con DATE: 04/09/2022 15:40 INDICATION: Lumbar spondylosis. Low back pain. TECHNIQUE: Magnetic resonance imaging (MRI) of the lumbar spine was performed without intravenous con trast. Sequences included sagittal T2-weighted FSE, sagittal T2-weighted FS FSE, sagittal T1-weighted FSE, and axial T2-weighted FSE. COMPARISON: Lumbar spine radiographs 03/12/2022 FINDINGS: There is 4 degrees levocurvature of lumbar spine. Vertebral body heights are normal. There is mildly decreased disc height at L2-L3, moderately decreased disc height at L4-L5, and severely dec reased disc height at L5-S1 with endplate remodeling. The distal spinal cord signal intensity is norm al. The conus medullaris is at L1-L2. The following disc levels are specifically discussed: L1-L2: The disc is bulging. There is mild bilateral facet joint osteoarthritis. There is mild bilater al neural foraminal stenosis. There is mild central canal stenosis. L2-L3: The disc is bulging. There is moderate right and mild left facet joint osteoarthritis. There i s mild bilateral neural foraminal stenosis. There is mild central canal stenosis. L3-L4: The disc is bulging. There is moderate bilateral facet joint osteoarthritis. There is mild leo ateral neural foraminal stenosis. There is mild central canal stenosis. L4-L5: The disc is bulging with superimposed left central extrusion. There is severe bilateral facet joint osteoarthritis. There is mild right and moderate left neural foraminal stenosis. There is mild central canal stenosis. L5-S1: The disc is bulging and has an annular fissure. There is severe bilateral facet joint osteoart hritis. There is moderate bilateral neural foraminal stenosis. There is mild central canal stenosis. IMPRESSION: 1. Severe lumbar spondylosis. Reviewed, dictated and finalized at location A. RPILLAR OPERATOR
== END ==
PROVIDERS: PCP Internal Medicine; Visit Provider Nurse Practitioner
DX: M47.896 Other spondylosis, lumbar region (principal)
CPT/HCPCS: 72148

== ENCOUNTER 2023-02-19 09:54 | Outpatient (CLI) | payer MEDICARE, SELFPAY ==
--- NOTE | 2023-02-19 14:46 | P.PCNPFT_ITS ---
PFT Procedure Performed PFT Procedure Performed Plethysmography (Lung Vol) Diffusing Cap (DLCO) Flow Vol Loop Spirometry w/o Bronchodil PFT Interpretation This is a pulmonary function test with spirometry, plethysmography and diffusing capacity. The test was performed and results interpreted in accordance with the 2019 and 2005 ATS/ERS Task Force guidelines respectively using the Global Lung Function Initiative-2012 reference equations. Patient demonstrated good effort and cooperation. Reproducibility criteria were met. The quality of the spirometry maneuver was Grade A. Findings: Spirometry: The contour of the expiratory flow tracing demonstrates a mid expiratory plateau referred to as the knee pattern in 3 of 3 maneuvers. The contour the inspiratory flow tracing is normal. The FVC is 2.71 L, 94% predicted. The FEV1 is 1.98 L, 88% predicted. The FEV1: FVC ratio is 73%. Plethysmography: The total lung capacity is 4.18 L, 85% predicted. The functional residual capacity is 2.11 L, 76% predicted. The residual volume is 1.36 L, 66% predicted. Diffusing capacity: The diffusing capacity unadjusted for hemoglobin and carboxyhemoglobin is 14.4, 70% predicted. The diffusing capacity adjusted for alveolar volume is 3.99, 91% predicted. Impression: The contour the expiratory flow tracing demonstrates a reproducible knee pattern. The knee pattern can be a normal variant or pathologic and has been attributed to a choke point section of the bronchial tree. The normal va riant is more common in younger female patients, decreases with age and is more pronounced in the post bronchodilator efforts. The pattern has also been described with kyphosis, kyphoscoliosis, central obstructing mass, and post lung transplantation. Clinical correlation is recommended. Otherwise the spirometry is normal without evidence of an obstructive abnormality. The lung volumes are normal. The diffusing capacity is normal. There are no prior studies for comparison
== END 2023-02-19 09:55 | disposition home or self-care (01) ==
LOC: ANHPFT 09:54
PROVIDERS: PCP Internal Medicine; Visit Provider Nurse Practitioner
DX: R05.9 Cough, unspecified (principal)
CPT/HCPCS: 94375; 94726; 94729

== ENCOUNTER 2023-03-24 09:38 | Outpatient (CLI) | payer MEDICARE, SELFPAY ==
--- NOTE | ~2023-03-24 | CT_ITS ---
Clinical Indication: Cough CT Scan of the Chest with Contrast: Technique: Contiguous sections were acquired throughout the chest after intravenous administration of 75 cc of Omnipaque 350. Dose reduction technique was used on this scan by utilizing automated exposu re control and iterative reconstruction technique. The dose-length product (DLP) was 215.37 mGy-cm. Findings: There is no evidence of any significant mediastinal, hilar or axillary lymphadenopathy. There is no f illing defect in the pulmonary arterial tree to suggest pulmonary embolus. There is no evidence of ao rtic dissection or aneurysm. There is no evidence of pleural or pericardial effusion. The lungs are clear. No pulmonary nodules or infiltrates are noted. Images through the upper abdomen reveal no abnormalities. Impression: No significant abnormality seen. Reviewed, dictated and finalized at [facility]. FORM BEATER Impression: No significant abnormality seen.
[2023-03-24 09:56] LABS: Estimated Glomerular Filt Rate > 60
== END 2023-03-24 09:39 | disposition home or self-care (01) ==
PROVIDERS: PCP Internal Medicine; Visit Provider Nurse Practitioner
DX: R05.9 Cough, unspecified (principal)
CPT/HCPCS: 71260; Q9967

== ENCOUNTER 2023-10-13 13:48 | Outpatient (CLI) | payer MEDICARE, SELFPAY ==
--- NOTE | ~2023-10-13 | MM_ITS ---
EXAMINATION: MM screening pearl BI w tyson HISTORY: Screening TECHNIQUE: Craniocaudal and mediolateral oblique 3-D tomosynthesis images were obtained and synthetic 2-D images were generated. CAD analysis was submitted and interpreted. COMPARISON: Comparison to multiple prior studies sequentially, with oldest reviewed study dated 02/04. BREAST PARENCHYMAL COMPOSITION: Not dense: There are scattered areas of fibroglandular density. FINDINGS: There is no evidence of suspicious mass, calcification, or architectural distortion to sugg est malignancy in either breast. There has been no suspicious interval change. IMPRESSION: 1. No mammographic evidence of malignancy. 2. Recommend routine screening mammography in one year. BI-RADS Category 1: Negative Reviewed, dictated and finalized at location B.
== END 2023-10-13 13:49 ==
LOC: MICIMG 13:50
PROVIDERS: PCP Internal Medicine; Visit Provider Obstetrics & Gynecology
DX: Z12.31 Encounter for screening mammogram for malignant neoplasm of breast (principal)
CPT/HCPCS: 77063; 77067

== ENCOUNTER 2023-10-13 13:52 | Outpatient (CLI) | payer MEDICARE, SELFPAY ==
--- NOTE | ~2023-10-13 | XR_ITS ---
XR sacroiliac joints min 3V Ordering provider: Akiko Hernandez, AEROSPACE PROJECT ENGINEER History: . Sacroiliac pain . Comparison: None. FINDINGS: BONES: No acute fracture or dislocation. JOINTS: The bilateral sacroiliac joint spaces appear well maintained. No bony fusion of the sacroilia c joints or bony erosions. Mild bilateral osteoarthritic changes of the hips. SOFT TISSUES: Unremarkable. IMPRESSION: NO ACUTE OSSEOUS ABNORMALITY. NORMAL SACROILIAC JOINTS. Reviewed, dictated and finalized at location A.
--- NOTE | ~2023-10-13 | XR_ITS ---
XR hip BI wo pelvis Ordering provider: Akiko Hernandez, CHAINSTITCH HEMMER History: . Bilat hip pain . Comparison: October 13, 2023 FINDINGS: BONES: No acute fracture or dislocation. HIP JOINT SPACES: Bilateral mild osteoarthritic changes. SACROILIAC JOINT SPACES/LUMBAR SPINE: The sacroiliac joint spaces are normal. Mild degenerative crump es of the visualized lower lumbar spine. PUBIC SYMPHYSIS: Normal. SOFT TISSUES: Normal. IMPRESSION: No acute osseous abnormality of the bilateral hips and pelvis. Reviewed, dictated and finalized at location A.
== END 2023-10-13 13:53 ==
LOC: MICIMG 13:55
PROVIDERS: PCP Internal Medicine; Visit Provider Nurse Practitioner
DX: M25.561 Pain in right knee (principal); M53.3 Sacrococcygeal disorders, not elsewhere classified
CPT/HCPCS: 72202; 73521

== ENCOUNTER 2023-11-08 07:38 | Outpatient (CLI) | payer MEDICARE, SELFPAY ==
--- NOTE | ~2023-11-08 | MR_ITS ---
EXAMINATION: MR cervical spine wo/w con DATE: 11/08/2023 08:59 INDICATION: Neck pain. Right arm numbness and tingling. TECHNIQUE: Magnetic resonance imaging (MRI) of the cervical spine was performed without and with 14 m L MultiHance intravenous contrast. COMPARISON: None FINDINGS: There is mild kyphosis of cervical spine. There are changes of anterior fusion procedure at C5-C6 with interbody devices and anterior plate and screws. There is mild chronic anterior wedging o f C7 vertebral body. There is moderately decreased disc height at C4-C5 and mildly decreased disc hei ght at C6-C7. The spinal cord signal intensity is normal. The following disc levels are specifically discussed: C2-C3: The disc does not extend beyond the endplate margin. There is mild right and moderate left unc overtebral joint osteoarthritis. There is severe bilateral facet joint osteoarthritis. There is moder ate bilateral neural foraminal stenosis. There is no central canal stenosis. C3-C4: The disc is bulging with superimposed central extrusion. There is severe bilateral uncovertebr al joint osteoarthritis. There is severe bilateral facet joint osteoarthritis. There is moderate bila teral neural foraminal stenosis. There is moderate central canal stenosis with ventral and dorsal ind entation of the spinal cord. C4-C5: The disc is bulging with superimposed central extrusion. There is severe bilateral uncovertebr al joint osteoarthritis. There is severe bilateral facet joint osteoarthritis. There is moderate righ t and mild left neural foraminal stenosis. There is mild central canal stenosis with ventral indentat ion of the spinal cord. C5-C6: There is mild bilateral uncovertebral joint hypertrophy. There is mild bilateral facet joint o steoarthritis. There is mild left neural foraminal stenosis. There is no central canal stenosis. C6-C7: The disc is bulging. There is mild bilateral uncovertebral joint osteoarthritis. There is loraine re bilateral facet joint osteoarthritis. There is mild bilateral neural foraminal stenosis. There is mild central canal stenosis. C7-T1: The disc is bulging with superimposed central extrusion. There is mild right and moderate left uncovertebral joint osteoarthritis. There is severe bilateral facet joint osteoarthritis. There is m ild right and moderate left neural foraminal stenosis. There is mild central canal stenosis. IMPRESSION: 1. Moderate cervical spondylosis. 2. Anterior fusion procedure at C5-C6. Reviewed, dictated and finalized at location A.
== END 2023-11-08 07:39 | disposition home or self-care (01) ==
LOC: ANHIMG 07:40
PROVIDERS: PCP Internal Medicine; Visit Provider Internal Medicine
DX: M47.892 Other spondylosis, cervical region (principal); Z98.1 Arthrodesis status
CPT/HCPCS: 72156; A9577

== ENCOUNTER 2023-11-12 14:18 | Inpatient (IN) | payer MEDICARE, SELFPAY ==
[2023-11-12] VITALS (13 sets, daily range): BP systolic 117–129; BP diastolic 62–74; PULSE 80–89; RESP 12–25; TEMP 36.6–36.8; O2SAT 93–99; BMI 26.1
--- NOTE | ~2023-11-12 | CT_ITS ---
EXAMINATION: CT abdomen pelvis w con DATE: 11/12/2023 15:57 INDICATION: Abdominal pain. Diarrhea. TECHNIQUE: Computed tomography (CT) of the abdomen and pelvis was performed with 100 mL Omnipaque 350 intravenous contrast. Automated exposure control and iterative reconstruction technique were employe d. The dose-length product was 520.17 mGy-cm. COMPARISON: CT abdomen and pelvis 03/31/2022 FINDINGS: The visualized portions of the lung bases demonstrate mild atelectasis. No pleural effusion . The heart size is normal. No pericardial effusion. There is a small sliding hiatal hernia. The live r, gallbladder, spleen, pancreas, adrenal glands are normal. There are cysts in the kidneys measuring up to 10 mm on the right. There are no dilated loops of bowel. There is liquid stool in the colon co rrelating with the symptom of diarrhea. The appendix is not visualized. There are no pathologically e nlarged lymph nodes. There is no free intraperitoneal fluid. There is calcified atherosclerosis of th e aorta and many of the other arteries. There is severe lower lumbar spondylosis. IMPRESSION: 1. Small sliding hiatal hernia. Reviewed, dictated and finalized at location A.
[2023-11-12 15:16] LABS: Basophils Percent Auto 0.4 % (0.2-1.2); Eosinophils Absolute Auto 0.1 K/mm3 (0-0.3); Eosinophils Percent Auto 1.2 % (0-4.4); Hematocrit 38.8 % (37.0-47.0); Hemoglobin 13.7 g/dL (12.0-15.0); Immature Granulocyte Absolute 0.02 K/mm3 (0.00-0.031); Immature Granulocyte Percent A 0.3 % (0-0.5); Lymphocytes Absolute Auto 0.79 K/mm3 (0.9-3.2); Lymphocytes Percent Auto 11.8 % (18.3-44.2); Mean Corpuscular HGB Conc 35.3 g/dl (32-36); Mean Corpuscular Hemoglobin 31.2 pg (26-34); Mean Corpuscular Volume 88.4 fl (80-100); Mean Platelet Volume 9.4 fl (7.4-10.4); Monocytes Absolute Auto 1.3 K/mm3 (0.1-0.6); Neutrophils Absolute Auto 4.5 K/mm3 (1.3-6.7); Neutrophils Percent Auto 67.3 % (45.5-73.1); Platelet Count Result 358 k/mm3 (150-375); Red Blood Count 4.39 M/mm3 (4.2-5.4); Red Cell Distribution Width 12.2 % (11.5-14.5); White Blood Count 6.7 K/mm3 (4.5-10.0)
[2023-11-12 15:33] LABS: Alanine Aminotransferase 27 U/L (6-35); Albumin Level 4.7 g/dL (3.5-5.1); Alkaline Phosphatase 122 U/L (38-126); Anion Gap 18 mmol/L (4-12); Aspartate Amino Transferase 24 U/L (14-36); Bilirubin,Total 0.6 mg/dL (0.2-1.3); Blood Urea Nitrogen 31 mg/dL (7-17); Calcium 9.6 mg/dL (8.4-10.2); Carbon Dioxide 15 mmol/L (22-30); Chloride 91 mmol/L (98-107); Estimated CRCL calculation 24 ml/min; Estimated Glomerular Filt Rate 30; Glucose 112 mg/dL (65-110); Lipase 99 U/L (23-300); Potassium 3.9 mmol/L (3.4-5.0); Sodium 124 mmol/L (137-145)
[2023-11-12] MEDS: SODIUM CHLORIDE 0.9% IV 1,000 ML 999 ML IV CONT ×2 (16:09→16:14)
[2023-11-12] MEDS: METOCLOPRAMIDE HCL INJ 10 MG/2 ML VIAL IV PUSH (16:09)
[2023-11-12] MEDS: diphenhydrAMINE HCl INJ 50 MG/ML VIAL 25 MG IV PUSH (16:09)
[2023-11-12 16:32] LABS: Add Urine Microscopic? YES; Appearance Urine Cloudy (Clear); Bacteria Urine None Seen /hpf; Bilirubin Urine Negative (Negative); Blood Urine Negative (Negative); Color Urine Yellow (Yellow); Glucose Urine UA Negative (Negative); Ketones Urine Trace mg/dL (Negative); Leukocyte Esterase Ur Negative LEU/UL (Negative); Need Manual Microscopic Reviewed; Nitrate Urine Negative (Negative); Protein Urine Negative (Negative); RBC Urine 0-2 /hpf (0-2); Specific Grav Ur 1.009 (1.001-1.035); Squamous Epithelial Cell Urine None Seen /hpf (Few); Urobilinogen Urine 0.2 mg/dL (<2.0); WBC Urine 0-5 /hpf (0-3); pH Urine 5.5 (5.0-9.0)
--- NOTE | 2023-11-12 16:42 | ED.NAVMDI ---
HPI - Nausea/Vomiting/Diarrhea General Chief complaint: Nausea/Vomiting/Diarrhea Stated complaint: diarrhea x 2 weeks, vomiting Time Seen by Provider: 11/12/23 14:53 History of Present Illness HPI Narrative: This is a 68-year-old female with a past medical history significant for chronic diarrhea who presents to the emergency department today for 2 and half weeks of ongoing acute on chronic diarrhea. She states her stools completely liquid in nature and she has been sent to her PCP for stool cultures which are still pending. She states she started developed abdominal discomfort and difficulty tolerating any p.o. intake. She is feeling nauseous and vomiting even with oral intake of water. Endorses cramping abdominal sensation and generalized weakness. PCP sent her into the ED for evaluation. Subjective fever chills at home but no measurable temperature. Was otherwise in her normal state of health in the last 3 weeks with no recent travel or recent antibiotics, exposure to any sick patient's or recent procedures. Related Data Home Medications Medication Instructions Recorded Confirmed alprazolam 0.5 mg tablet (Xanax) 0.5 mg PO QID PRN Anxiety 02/27/19 11/23/22 atorvastatin 40 mg tablet 40 mg PO DAILY 02/27/19 11/23/22 citalopram 40 mg tablet (Celexa) 40 mg PO QAM 02/27/19 11/23/22 levothyroxine 75 mcg tablet 75 mcg PO QAM 02/27/19 11/23/22 (Synthroid) losartan 50 mg tablet 50 mg PO QAM 02/27/19 11/23/22 cholecalciferol (vitamin D3) 50 50 mcg PO DAILY 03/25/20 11/23/22 mcg (2,000 unit) tablet cyanocobalamin (vitamin B-12) 1,000 mcg PO DAILY 03/25/20 11/23/22 1,000 mcg tablet rituximab 10 mg/mL 10 mg IV Q4M 03/25/20 11/23/22 concentrate,intravenous (Rituxan) vitamin E 400 unit tablet 400 unit PO DAILY 03/25/20 11/23/22 amlodipine 5 mg tablet 5 mg PO QAM 10/09/20 11/23/22 leflunomide 10 mg tablet 10 mg PO QAM 10/09/20 11/23/22 spironolactone 25 mg tablet 25 mg PO QAM 10/09/20 11/23/22 celecoxib 200 mg capsule 200 mg PO DAILY 02/11/22 11/23/22 Allergies Allergy/AdvReac Type Severity Reaction Status Date / Time hydroxychloroquine Allergy Unknown SWELLING Verified 11/23/22 09:31 [From Plaquenil] AND HIVES codeine AdvReac Unknown Itching Verified 11/23/22 09:31 Review of Systems Review of Systems: As reviewed above in [facility] Past Medical History Medical History Bulging discs Essential hypertension High fecal calprotectin Hypothyroidism Panic attack Rheumatoid arthritis Rheumatoid arthritis involving left knee Right rotator cuff tendonitis Rotator cuff tear, right Sciatic nerve injury Surgical History Surgical History History of repair of right rotator cuff (~04/02/20) RCR w/ SAD and Biceps tenotomy History of tubal ligation Hx of fusion of cervical spine C4-5 Status post reverse total arthroplasty of right shoulder Family History Family History Father Heart disease Mother Heart disease Sibling Rheumatoid arthritis Social History Social History Smoking packs per day: 0.5 Smoking cigarettes per day: 10.0 Years smoked: 15 Smoking pack-years: 7.50 Smoking status: Former smoker Tobacco type: cigarettes Smoking end date: 03/04/16 Alcohol intake: current Drinks per week: 14 Alcohol use details: weekly Substance use: never Living arrangements: with family Additional living arrangements comments: Spiritual care concerns: No Exam Narrative: GENERAL: [Well-appearing, well-nourished, and in no acute distress.] HEAD: [Normocephalic, atraumatic.] EYES: [PERRLA and EOMI.] ENT: Nares clear, no rhinorrhea or epistaxis. Mucous membranes moist. NECK: Supple. CHEST: [Clear to auscultation. No respiratory distres
[2023-11-12] MEDS: LOPERAMIDE HCL 2 MG CAPSULE 4 MG PO (16:45)
[2023-11-12] MEDS: levoFLOXacin 500 MG/D5W 100 ML 500 MG/100 ML BAG 100 MG IVPB (16:45)
--- NOTE | 2023-11-12 17:08 | PM.IMHP ---
H&P: HPI History of Present Illness Date/Time: 11/12/23 17:08 Chief Complaint: Diarrhea Narrative: 68 y/o F presents here with diarrhea with PMH of chronic diarrhea (unknown etiology, currently being attributed to IBD), hypertension, hypothyroidism, rheumatoid arthritis. The patient presents here from home for further evaluation of ongoing diarrhea. The patient reports reoccurrence/increase in severity starting 2.5 weeks ago. Patient initially saw her PCP for the symptoms and stool samples were collected. Per patient she has not received the results. Diarrhea now accompanied by generalized weakness, nausea, vomiting with poor p.o. intake, and abdominal pain/cramping. Patient reports she has been unable to tolerate solid food for the past week. She describes the abdominal pain as achy, nonradiating, constant, aggravated prior to BM, and no alleviating factors. Patient is denying black tarry stools or BRB per rectum. Per most recent GI note on 06/09/2022, patient has had chronic diarrhea since May of 2021. Has history of elevated stool calprotectin (482), colonoscopy completed which was negative for microscopic colitis or IBD, negative celiac panel, TSH historically within normal limits, and has had a small-bowel follow-through which was normal. Diarrhea currently being attributed to IBD. Takes imodium twice daily PRN, typically takes a morning dose and dose in the evening. Initial VS at presentation: 97.9? F, HR 89, R 16, 129/71, and 99% on RA. ED workup showed: No leukocytosis, no anemia, sodium 124, creatinine 1.7 and GFR 30 (previously 0.7 and GFR >60 in 2022), lactic 1.0, and UA showed cloudy appearance with trace ketones. CT of the abdomen pelvis showed a small sliding hiatal hernia as well as liquid stool in the colon. Review of Systems Review of Systems: All systems reviewed & are unremarkable except as noted in HPI and below PMFSH Past Medical History Medical History Bulging discs Essential hypertension High fecal calprotectin Hypothyroidism Panic attack Rheumatoid arthritis Rheumatoid arthritis involving left knee Right rotator cuff tendonitis Rotator cuff tear, right Sciatic nerve injury Surgical History Surgical History History of repair of right rotator cuff (~04/02/20) RCR w/ SAD and Biceps tenotomy History of tubal ligation Hx of fusion of cervical spine C4-5 Status post reverse total arthroplasty of right shoulder Family History Family History Father Heart disease Mother Heart disease Sibling Rheumatoid arthritis Social History Social History Smoking packs per day: 0.5 Smoking cigarettes per day: 10.0 Years smoked: 15 Smoking pack-years: 7.50 Smoking status: Former smoker Alcohol intake: current Drinks per week: 14 Alcohol use details: weekly Substance use: never Do You Feel Safe in your Home?: Yes Lack of Transportation: No Lack of Food: Never True Current Housing: I Have Housing Concerned About Future Housing: No Difficulty Paying Gas/Electric Bills: No Difficulty Paying for Meds: No Currently Unemployed: No Education: Decline to Answer Difficulty w/ Childcare or Family Care: No Living arrangements: with family Additional living arrangements comments: Spiritual care concerns: No Meds Home Medications and Allergies Home Medications Medication Instructions Recorded Confirmed Type alprazolam 0.5 mg tablet (Xanax) 0.5 mg PO QID PRN Anxiety 02/27/19 11/12/23 History atorvastatin 40 mg tablet 40 mg PO DAILY 02/27/19 11/12/23 History levothyroxine 75 mcg tablet 75 mcg PO QAM 02/27/19 11/12/23 History (Synthroid) losartan 50 mg tablet 100 mg PO QAM 02/27/19 11/12/23 History cholecalciferol (vitamin D
--- NOTE | 2023-11-12 18:13 | ADMGEN ---
This patient, Rhina Sher, was admitted to Medical Room 345-. Patient/family oriented to hospital policies and general routines including ID bracelet, bed and alarms, visiting hours, pain management, procedures, bathroom and other care routines, personal items, smoking policy, room service/diet, and visiting hours. Information on how to activate the Rapid Response Team has been discussed. Patient/Family are encouraged to report perceived risks to care and to ask questions if they do not understand what they are told or what they should do.
[2023-11-12 19:22] LABS: Anion Gap 14 mmol/L (4-12); Blood Urea Nitrogen 28 mg/dL (7-17); Calcium 8.8 mg/dL (8.4-10.2); Carbon Dioxide 17 mmol/L (22-30); Chloride 97 mmol/L (98-107); Estimated CRCL calculation 27 ml/min; Estimated Glomerular Filt Rate 35; Glucose 92 mg/dL (65-110); Potassium 4.2 mmol/L (3.4-5.0); Sodium 128 mmol/L (137-145)
[2023-11-12 21:45] LABS: Creatinine Urine 18.2 mg/dL; Total Protein Urine Random 14 mg/dL; Ur Ttl Prot Creatinine Ratio 0.77 mg/mg (0-0.20)
[2023-11-12 21:47] LABS: Creatinine Urine 18.5 mg/dL
[2023-11-12 22:00] LABS: Sodium Urine Random 18 meq/L
[2023-11-12 22:04] LABS: Anion Gap 14 mmol/L (4-12); Blood Urea Nitrogen 29 mg/dL (7-17); Calcium 8.8 mg/dL (8.4-10.2); Carbon Dioxide 16 mmol/L (22-30); Chloride 98 mmol/L (98-107); Estimated CRCL calculation 27 ml/min; Estimated Glomerular Filt Rate 35; Glucose 85 mg/dL (65-110); Potassium 4.2 mmol/L (3.4-5.0); Sodium 128 mmol/L (137-145)
[2023-11-13] MEDS: METOCLOPRAMIDE HCL INJ 10 MG/2 ML VIAL 5 MG IV PUSH ×5 (00:02→23:33)
[2023-11-13] MEDS: BACLOFEN 10 MG TABLET PO (00:07)
[2023-11-13 02:58] LABS: Anion Gap 13 mmol/L (4-12); Blood Urea Nitrogen 27 mg/dL (7-17); Calcium 9.3 mg/dL (8.4-10.2); Carbon Dioxide 18 mmol/L (22-30); Chloride 99 mmol/L (98-107); Estimated CRCL calculation 26 ml/min; Estimated Glomerular Filt Rate 32; Glucose 83 mg/dL (65-110); Potassium 4.3 mmol/L (3.4-5.0); Sodium 130 mmol/L (137-145)
[2023-11-13 05:34] LABS: Basophils Percent Auto 0.6 % (0.2-1.2); Eosinophils Absolute Auto 0.1 K/mm3 (0-0.3); Eosinophils Percent Auto 1.5 % (0-4.4); Hemoglobin 11.9 g/dL (12.0-15.0); Immature Granulocyte Absolute 0.01 K/mm3 (0.00-0.031); Immature Granulocyte Percent A 0.2 % (0-0.5); Lymphocytes Absolute Auto 0.95 K/mm3 (0.9-3.2); Lymphocytes Percent Auto 19.9 % (18.3-44.2); Mean Corpuscular HGB Conc 33.1 g/dl (32-36); Mean Corpuscular Hemoglobin 29.9 pg (26-34); Mean Corpuscular Volume 90.5 fl (80-100); Mean Platelet Volume 9.3 fl (7.4-10.4); Monocytes Absolute Auto 1.4 K/mm3 (0.1-0.6); Monocytes Percent Auto 29.1 % (2.6-8.5); Neutrophils Absolute Auto 2.3 K/mm3 (1.3-6.7); Neutrophils Percent Auto 48.7 % (45.5-73.1); Platelet Count Result 327 k/mm3 (150-375); Red Blood Count 3.98 M/mm3 (4.2-5.4); Red Cell Distribution Width 12.1 % (11.5-14.5); White Blood Count 4.8 K/mm3 (4.5-10.0)
[2023-11-13 05:47] LABS: Alanine Aminotransferase 21 U/L (6-35); Alkaline Phosphatase 91 U/L (38-126); Anion Gap 14 mmol/L (4-12); Aspartate Amino Transferase 23 U/L (14-36); Bilirubin,Total 0.5 mg/dL (0.2-1.3); Blood Urea Nitrogen 27 mg/dL (7-17); Carbon Dioxide 17 mmol/L (22-30); Chloride 101 mmol/L (98-107); Estimated CRCL calculation 27 ml/min; Estimated Glomerular Filt Rate 35; Glucose 84 mg/dL (65-110); Sodium 132 mmol/L (137-145)
[2023-11-13] MEDS: LEVOTHYROXINE SODIUM 75 MCG TABLET PO (05:53)
[2023-11-13 06:00] VITALS: BP 100/59; PULSE 83; RESP 18; TEMP 36.7; O2SAT 99
--- NOTE | 2023-11-13 08:07 | PM.IMPN ---
Progress Note: A&P Assessment and Plan (1) Diarrhea: Code(s): R19.7 - Diarrhea, unspecified Status: Acute Assessment and Plan: Acute on chronic diarrhea with subsequent dehydration and DENIS. Patient reports 5-8 episodes of diarrhea for the past week. Baseline is 2 episodes a day. - CT abd/pelvis: Small sliding hiatal hernia. - IV fluids - Imodium p.r.n. - stool cultures pending - C diff negative - started on Levaquin, diarrhea presumed infectious initially. Will hold on further treatment. No systemic infectious symptoms or signs of colitis on CT. - monitor I&Os - GI consulted, has historically followed with Gastroenterology, last seen in 2021. Workup for diarrhea has thus far been unrevealing. (2) Acute kidney injury: Code(s): N17.9 - Acute kidney failure, unspecified Status: Acute Assessment and Plan: BUN/Cr 31/1.7 and GFR 30, previously Cr 0.7 and GFR >60 on 03/24/2023 - no previous history of CKD - BUN/CR 27/1.5 on am labs - IV fluids: recieved 2L NS bolus, 1L LR bolus on admission, started on IV NS 75 ml/hr - suspect prerenal cause: hypovolemia with subsequent injury - hold spironolactone - avoid nephrotoxic medications - renally dose medications - monitor I/O - trend renal function - trend electrolytes, correct as needed (3) Hyponatremia: Code(s): E87.1 - Hypo-osmolality and hyponatremia Status: Acute Assessment and Plan: Na 124 on admission. Likely due to decreased oral intake. - Na 132 on am labs - IV fluids: Received 2L NS bolus, 1L LR bolus on admission - add serum osmolality, urine osmolality, urine sodium, protein to creatinine ratio, urine creatinine (4) Essential hypertension: Code(s): I10 - Essential (primary) hypertension Status: Acute Assessment and Plan: Chronic, well controlled on home meidcations - continue home medications: Amlodipine 5 mg, losartan 100 mg. Holding spironolactone 25 mg given DENIS. - monitor Plan Patient here with recurrent diarrhea. Has previously had chronic diarrhea suspected to be secondary to IBD. Has undergone workup with GI previously. CT unrevealing for etiology of patient's symptoms today. Given IV fluids for DENIS secondary to hypovolemia. GI consulted. Stool cultures pending. Diet: Regular GI Prophylaxis: Not currently indicated DVT Prophylaxis: SCDs Lines: Peripheral Code Status: Full code Time Spent With Patient Time with patient: 25 - 35 minutes Subjective Date/time seen: 11/13/23 08:07 Interval history: 68 y/o female with past medical history of chronic diarrhea (unknown etiology, currently being attributed to IBD), hypertension, hypothyroidism, rheumatoid arthritis presents here with diarrhea. Patient is pleasant lying comfortably in bed. She endorses 5 episodes of diarrhea today. She denies recent antibiotics. She denies hematochezia/melena. She notes that her baseline is 2 diarrheal episodes a day. C diff was negative. Stool cultures pending. Patient was previously follow GI, however has not been seen since 2021. GI consulted. Patient has had improvement of her DENIS and hyponatremia with the IV fluids. Will continue the IV fluids at this time. Patient notes slight lightheadedness with ambulation. She states that this will happen intermittently. Will obtain orthostatic blood pressures. Patient denies chest pain, shortness of breath, nausea/vomiting and changes in bladder. Review of Systems Review of Systems: All systems reviewed & are unremarkable except as noted in HPI and below Exam Narrative: AF HR 83 RR 16 SpO2 97 BP 107/55 General: female in no acute respiratory distress who is nontoxic appearing, lying semi recumbent in bed. HEENT: Normocephalic. Atraumatic. Extraocular movement intact. Sclera clear and anicteric. No facial asymmetry. Chest: Lungs are clear to auscultation bilaterally. No wheezes or crackles. CV: Heart was regular rate and rhythm. S1-S2.
[2023-11-13 08:55] LABS: Toxigenic C. Diff NEGATIVE (NEGATIVE)
[2023-11-13] MEDS: LOSARTAN POTASSIUM 50 MG TABLET 100 MG PO (09:25)
[2023-11-13] MEDS: DULoxetine HCL 60 MG CAPSULE.DR PO (09:25)
[2023-11-13] MEDS: CYANOCOBALAMIN 1,000 MCG TABLET 1000 MCG PO (09:25)
[2023-11-13] MEDS: CHOLECALCIFEROL 1,000 UNITS TABLET 2000 UNITS PO (09:25)
[2023-11-13] MEDS: VITAMIN E 400 UNIT CAPSULE PO (09:25)
[2023-11-13] MEDS: ATORVASTATIN 40 MG TABLET PO (09:25)
[2023-11-13] MEDS: amLODIPine BESYLATE 5 MG TABLET PO (09:26)
[2023-11-13 09:30] VITALS: O2SAT 99
[2023-11-13 14:47] VITALS: BP 107/55; PULSE 83; RESP 16; TEMP 36.3; O2SAT 97
[2023-11-13] MEDS: LOPERAMIDE HCL 2 MG CAPSULE PO ×2 (15:24→21:27)
[2023-11-13] MEDS: SODIUM CHLORIDE 0.9% IV 1,000 ML 75 ML IV CONT (15:25)
--- NOTE | 2023-11-13 15:57 | PHAR ---
PT'S HOME MED LEFLUNOMIDE 10 MG TABS VERIFIED BY PHARMACY
[2023-11-13 16:42] VITALS: BP 100/62; BP 86/49; BP 99/56; PULSE 86; PULSE 87; PULSE 88
[2023-11-13 21:12] VITALS: BP 116/66; PULSE 76; RESP 18; TEMP 36.5; O2SAT 98
[2023-11-13] MEDS: ALPRAZolam (*CRX) 0.5 MG TABLET PO (21:27)
[2023-11-13] MEDS: HYDROcodone/acetaminophen (*CRX) 5-325 MG TABLET 1 TAB PO (21:28)
[2023-11-14] MEDS: SODIUM CHLORIDE 0.9% IV 1,000 ML 75 ML IV CONT (04:40)
[2023-11-14] MEDS: METOCLOPRAMIDE HCL INJ 10 MG/2 ML VIAL 5 MG IV PUSH ×3 (05:39→17:18)
[2023-11-14] MEDS: LEVOTHYROXINE SODIUM 75 MCG TABLET PO (05:39)
[2023-11-14] MEDS: LOPERAMIDE HCL 2 MG CAPSULE PO ×2 (05:41→08:44)
[2023-11-14 06:00] VITALS: BP 120/70; PULSE 78; RESP 20; TEMP 36.5; O2SAT 96
--- NOTE | 2023-11-14 08:32 | PM.IMPN ---
Progress Note: A&P Assessment and Plan (1) Diarrhea: Code(s): R19.7 - Diarrhea, unspecified Status: Acute Assessment and Plan: Acute on chronic diarrhea with subsequent dehydration and DENIS. Patient reports 5-8 episodes of diarrhea for the past week. Baseline is 2 episodes a day. - CT abd/pelvis: Small sliding hiatal hernia. - IV fluids - Imodium p.r.n. - stool cultures pending, prior stool cultures negative in 2021 - C diff negative - started on Levaquin, diarrhea presumed infectious initially. Will hold on further treatment. No systemic infectious symptoms or signs of colitis on CT. - monitor I&Os - GI consulted, has historically followed with Gastroenterology, last seen in 2021. Workup for diarrhea has thus far been unrevealing. Started questran, remains on imodium Consider sigmoidscopy w/ random biopsy if no improvement (2) Orthostatic hypotension: Code(s): I95.1 - Orthostatic hypotension Status: Acute Assessment and Plan: Likely due to patients ongoing diarrhea and hypovolemia. She remains on IV fluids at this time. - Hold antihypertensives - daily orthostatics ordered (3) Acute kidney injury: Code(s): N17.9 - Acute kidney failure, unspecified Status: Acute Assessment and Plan: BUN/Cr 31/1.7 and GFR 30, previously Cr 0.7 and GFR >60 on 03/24/2023 - no previous history of CKD - BUN/CR 20/1.1 on am labs - IV fluids: recieved 2L NS bolus, 1L LR bolus on admission, started on IV NS 75 ml/hr - suspect prerenal cause: hypovolemia with subsequent injury - hold spironolactone - avoid nephrotoxic medications - renally dose medications - monitor I/O - trend renal function - trend electrolytes, correct as needed (4) Hyponatremia: Code(s): E87.1 - Hypo-osmolality and hyponatremia Status: Acute Assessment and Plan: Na 124 on admission. Likely due to decreased oral intake. - Na 134 on am labs - IV fluids: Received 2L NS bolus, 1L LR bolus on admission - add serum osmolality, urine osmolality, urine sodium, protein to creatinine ratio, urine creatinine (5) Essential hypertension: Code(s): I10 - Essential (primary) hypertension Status: Acute Assessment and Plan: Chronic, well controlled on home meidcations - continue home medications: Holding Amlodipine 5 mg and losartan 100 mg given orthostatic hypotension. Holding spironolactone 25 mg given DENIS. - monitor Plan Patient here with recurrent diarrhea. Has previously had chronic diarrhea suspected to be secondary to IBD. Has undergone workup with GI previously. CT unrevealing for etiology of patient's symptoms today. Given IV fluids for DENIS secondary to hypovolemia. GI consulted. Stool cultures pending. Diet: Regular GI Prophylaxis: Not currently indicated DVT Prophylaxis: SCDs Lines: Peripheral Code Status: Full code Time Spent With Patient Time with patient: 25 - 35 minutes Subjective Date/time seen: 11/14/23 08:32 Interval history: 68 y/o female with past medical history of chronic diarrhea (unknown etiology, currently being attributed to IBD), hypertension, hypothyroidism, rheumatoid arthritis presents here with diarrhea. Patient is pleasant sitting up in chair with daughter at bedside. She endorses a lack of appetite at this time and only had a few bites of her lunch. She continues to have multiple episodes of diarrhea. [facility] [employer] consulted for nutrition supplementation. GI evaluated patient today and added questran to her regimen. Patient denies nausea/vomiting and abdominal pain. Patients orthostatics were positive today. She notes mild lightheadedness at that time. She remains on IV fluids. Will hold all antihypertensives and monitor pressures. Patients DENIS continues to improve with fluids. Patient denies chest pain, shortness of breath, and urinary changes. Review of Systems Review of Systems: All systems reviewed & are unremarkable except as
[2023-11-14 08:45] VITALS: O2SAT 96
[2023-11-14] MEDS: LOSARTAN POTASSIUM 50 MG TABLET 100 MG PO (08:45)
[2023-11-14] MEDS: CHOLECALCIFEROL 1,000 UNITS TABLET 2000 UNITS PO (08:45)
[2023-11-14] MEDS: DULoxetine HCL 60 MG CAPSULE.DR PO (08:45)
[2023-11-14] MEDS: ATORVASTATIN 40 MG TABLET PO (08:45)
[2023-11-14] MEDS: VITAMIN E 400 UNIT CAPSULE PO (08:45)
[2023-11-14] MEDS: CYANOCOBALAMIN 1,000 MCG TABLET 1000 MCG PO (08:45)
[2023-11-14] MEDS: amLODIPine BESYLATE 5 MG TABLET PO (08:45)
[2023-11-14 08:47] LABS: Basophils Percent Auto 0.6 % (0.2-1.2); Eosinophils Absolute Auto 0.2 K/mm3 (0-0.3); Eosinophils Percent Auto 2.2 % (0-4.4); Hematocrit 35.5 % (37.0-47.0); Immature Granulocyte Absolute 0.02 K/mm3 (0.00-0.031); Immature Granulocyte Percent A 0.3 % (0-0.5); Lymphocytes Absolute Auto 1.04 K/mm3 (0.9-3.2); Mean Corpuscular HGB Conc 33.8 g/dl (32-36); Mean Corpuscular Hemoglobin 30.8 pg (26-34); Mean Corpuscular Volume 91.3 fl (80-100); Monocytes Absolute Auto 1.5 K/mm3 (0.1-0.6); Monocytes Percent Auto 22.3 % (2.6-8.5); Neutrophils Absolute Auto 4.1 K/mm3 (1.3-6.7); Neutrophils Percent Auto 59.6 % (45.5-73.1); Platelet Count Result 329 k/mm3 (150-375); Red Blood Count 3.89 M/mm3 (4.2-5.4); Red Cell Distribution Width 12.4 % (11.5-14.5); White Blood Count 6.9 K/mm3 (4.5-10.0)
[2023-11-14 08:58] LABS: Alanine Aminotransferase 20 U/L (6-35); Albumin Level 4.1 g/dL (3.5-5.1); Alkaline Phosphatase 105 U/L (38-126); Anion Gap 11 mmol/L (4-12); Aspartate Amino Transferase 24 U/L (14-36); Bilirubin,Total 0.5 mg/dL (0.2-1.3); Blood Urea Nitrogen 20 mg/dL (7-17); Calcium 9.2 mg/dL (8.4-10.2); Carbon Dioxide 19 mmol/L (22-30); Chloride 104 mmol/L (98-107); Estimated CRCL calculation 36 ml/min; Estimated Glomerular Filt Rate 50; Glucose 94 mg/dL (65-110); Potassium 3.7 mmol/L (3.4-5.0); Sodium 134 mmol/L (137-145)
--- NOTE | 2023-11-14 09:15 | WPDGICN ---
Assessment and Plan Assessment and plan (1) Diarrhea: Code(s): R19.7 - Diarrhea, unspecified Status: Acute Assessment and Plan: extensive work up in the past unrevealing last 3 weeks with much more frequent diarrhea on imodium, will add questran if not any better then consider sigmoidoscopy with random bx again she is also partially immunocompromised (on rituxan and leflunomide) (2) Acute kidney injury: Code(s): N17.9 - Acute kidney failure, unspecified Status: Acute Assessment and Plan: on treatment (3) Acute dehydration: Code(s): E86.0 - Dehydration Status: Acute Assessment and Plan: treated (4) Hyponatremia: Code(s): E87.1 - Hypo-osmolality and hyponatremia Status: Acute Assessment and Plan: monitoring (5) Rheumatoid arthritis: Code(s): M06.9 - Rheumatoid arthritis, unspecified Status: Acute GI Consult Note Consult date/time: 11/14/23 09:15 Reason for consult: diarrhea, n/v HPI: Rhina Sher is a 68 year old female with history of chronic diarrhea since 2021 for which she had a colonoscopy with Dr De La Paz, normal colon including random biopsies, no colitis (she has been maximo that has IBS with alternating constipation and diarrhea). She had a small-bowel follow-through which was normal and unremarkable CT scan. 5HIAA 24 hour urine was normal, trial of xifaxan did not work. Previous Stool culture, C diff, and pancreatic elastase within normal limits. Negative celiac panel. TSH normal. She is here with worsening diarrhea for last 3 weeks, just runny stools and progressive generalized weakness, also had n/v, denies sick contacts or taking any new medications. Noted home med- rituxn and leflunomide (h/o RA) Labs- No leukocytosis, no anemia, sodium 124, creatinine 1.7 and GFR 30, lactic 1.0, and UA showed cloudy appearance with trace ketones. CT of the abdomen pelvis showed a small sliding hiatal hernia as well as liquid stool in the colon. Review of Systems Constitutional: Constitutional: Reports weakness Eyes: Eyes: Denies blurry vision ENT: Reports Normal hearing present, Denies headache(s) and Denies neck pain Cardiovascular: Cardiovascular: Denies chest pain and Denies dyspnea Respiratory: Respiratory: Denies dyspnea Gastrointestinal: Gastrointestinal: Reports diarrhea and Reports nausea Genitourinary: Genitourinary: Denies dysuria Musculoskeletal: Musculoskeletal: Denies neck pain Integumentary/Breasts: Skin/Breast: Denies dry skin Neurologic: Reports Normal hearing present, Denies headache(s) and Denies weakness Psychiatric: Psychiatric: Denies anxiety Endocrine: Endocrine: Denies change in body appearance Hematologic/Lymphatic: Hematologic/Lymphatic: Denies easy bleeding Allergic/Immunologic: Allergic/Immunologic: Denies urticaria PMFSH Past Medical History Medical History Bulging discs Essential hypertension High fecal calprotectin Hypothyroidism Panic attack Rheumatoid arthritis Rheumatoid arthritis involving left knee Right rotator cuff tendonitis Rotator cuff tear, right Sciatic nerve injury Surgical History Surgical History History of repair of right rotator cuff (~04/02/20) RCR w/ SAD and Biceps tenotomy History of tubal ligation Hx of fusion of cervical spine C4-5 Status post reverse total arthroplasty of right shoulder Family History Family History Father Heart disease Mother Heart disease Sibling Rheumatoid arthritis Social History Social History Smoking packs per day: 0.5 Smoking cigarettes per day: 10.0 Years smoked: 15 Smoking pack-years: 7.50 Smoking status: Former smoker Alcohol intake: current Drinks per week: 14 Alcohol use details: w
[2023-11-14] MEDS: CHOLESTYRAMINE LIGHT 4 GM POWD.PACK PO ×2 (10:13→17:16)
[2023-11-14 14:00] VITALS: BP 111/58; PULSE 86; RESP 16; TEMP 36.4; O2SAT 96
[2023-11-14 16:28] VITALS: BP 108/65; BP 114/58; BP 96/57
[2023-11-14] MEDS: HYDROcodone/acetaminophen (*CRX) 5-325 MG TABLET 1 TAB PO (20:18)
[2023-11-14] MEDS: BACLOFEN 10 MG TABLET PO (20:18)
[2023-11-14] MEDS: ALPRAZolam (*CRX) 0.5 MG TABLET PO (20:19)
[2023-11-14 20:37] VITALS: BP 109/68; PULSE 58; RESP 20; TEMP 36.5; O2SAT 100
[2023-11-15] MEDS: LOPERAMIDE HCL 2 MG CAPSULE PO ×4 (00:19→12:38)
[2023-11-15] MEDS: SODIUM CHLORIDE 0.9% IV 1,000 ML 75 ML IV CONT (01:48)
[2023-11-15 04:26] VITALS: BP 104/64; PULSE 87; RESP 20; TEMP 36.6; O2SAT 94
[2023-11-15] MEDS: METOCLOPRAMIDE HCL INJ 10 MG/2 ML VIAL 5 MG IV PUSH ×2 (04:49→11:18)
[2023-11-15] MEDS: LEVOTHYROXINE SODIUM 75 MCG TABLET PO (04:49)
[2023-11-15 05:36] LABS: Basophils Percent Auto 0.9 % (0.2-1.2); Eosinophils Absolute Auto 0.1 K/mm3 (0-0.3); Eosinophils Percent Auto 2.7 % (0-4.4); Hematocrit 34.9 % (37.0-47.0); Hemoglobin 11.3 g/dL (12.0-15.0); Immature Granulocyte Absolute 0.01 K/mm3 (0.00-0.031); Immature Granulocyte Percent A 0.2 % (0-0.5); Lymphocytes Absolute Auto 0.99 K/mm3 (0.9-3.2); Lymphocytes Percent Auto 22.1 % (18.3-44.2); Mean Corpuscular HGB Conc 32.4 g/dl (32-36); Mean Corpuscular Volume 92.6 fl (80-100); Mean Platelet Volume 9.2 fl (7.4-10.4); Monocytes Absolute Auto 1.5 K/mm3 (0.1-0.6); Monocytes Percent Auto 33.6 % (2.6-8.5); Neutrophils Absolute Auto 1.8 K/mm3 (1.3-6.7); Neutrophils Percent Auto 40.5 % (45.5-73.1); Platelet Count Result 322 k/mm3 (150-375); Red Blood Count 3.77 M/mm3 (4.2-5.4); Red Cell Distribution Width 12.4 % (11.5-14.5); White Blood Count 4.5 K/mm3 (4.5-10.0)
[2023-11-15 05:50] LABS: Alanine Aminotransferase 20 U/L (6-35); Albumin Level 3.8 g/dL (3.5-5.1); Alkaline Phosphatase 105 U/L (38-126); Anion Gap 11 mmol/L (4-12); Aspartate Amino Transferase 22 U/L (14-36); Bilirubin,Total 0.4 mg/dL (0.2-1.3); Blood Urea Nitrogen 12 mg/dL (7-17); Carbon Dioxide 17 mmol/L (22-30); Chloride 107 mmol/L (98-107); Estimated CRCL calculation 44 ml/min; Estimated Glomerular Filt Rate > 60; Glucose 84 mg/dL (65-110); Potassium 3.8 mmol/L (3.4-5.0); Sodium 135 mmol/L (137-145)
[2023-11-15] MEDS: CHOLECALCIFEROL 1,000 UNITS TABLET 2000 UNITS PO (08:13)
[2023-11-15] MEDS: CYANOCOBALAMIN 1,000 MCG TABLET 1000 MCG PO (08:13)
[2023-11-15] MEDS: DULoxetine HCL 60 MG CAPSULE.DR PO (08:13)
[2023-11-15] MEDS: ATORVASTATIN 40 MG TABLET PO (08:13)
[2023-11-15] MEDS: VITAMIN E 400 UNIT CAPSULE PO (08:13)
[2023-11-15 08:15] VITALS: O2SAT 94
[2023-11-15] MEDS: HYDROcodone/acetaminophen (*CRX) 5-325 MG TABLET 1 TAB PO (08:15)
[2023-11-15] MEDS: CHOLESTYRAMINE LIGHT 4 GM POWD.PACK PO (11:17)
[2023-11-15 12:37] VITALS: BP 129/64
--- NOTE | 2023-11-15 12:37 | PCOTNOTE ---
PT fly notes pt. at baseline and is independent. Hospitalist Richa Solano informed and agreed to cancelation of orders.
[2023-11-15 12:38] VITALS: BP 118/64; BP 124/66
[2023-11-15 12:56] VITALS: BMI 26.1
--- NOTE | 2023-11-15 13:15 | PM.DS ---
DS: Admitting Diagnosis Discharge Date 11/15/2023 Admitting Diagnosis Diarrhea Orthostatic hypotension Acute kidney injury Hyponatremia Essential hypertension DS: Discharge Diagnosis Discharge Diagnosis (1) Diarrhea: Code(s): R19.7 - Diarrhea, unspecified Status: Acute (2) Orthostatic hypotension: Code(s): I95.1 - Orthostatic hypotension Status: Acute (3) Acute kidney injury: Code(s): N17.9 - Acute kidney failure, unspecified Status: Acute (4) Hyponatremia: Code(s): E87.1 - Hypo-osmolality and hyponatremia Status: Acute (5) Essential hypertension: Code(s): I10 - Essential (primary) hypertension Status: Acute DS: Summary Hospital Course Reason for hospitalization: Diarrhea Orthostatic hypotension Acute kidney injury Hyponatremia Essential hypertension Hospital Course: 68 y/o female with past medical history of chronic diarrhea (unknown etiology, currently being attributed to IBD), hypertension, hypothyroidism, rheumatoid arthritis presents here with diarrhea. On admission patient was noted to have hyponatremia and an DENIS likely due to hypovolemia from decreased oral intake and diarrhea. Patient also had positive orthostatic blood pressures at that time. Her antihypertensives were being held during admission. She was started on IV fluid and GI was consulted. C diff and stool culture negative. Patient was previously seen by GI in 2021 and had an extensive workup for diarrhea that was unremarkable. She was started on imodium and questran. Patients DENIS and hyponatremia resolved with the fluids. She reported to have nausea and was started on antiemetics. Patient continues to have diarrhea at time of discharge. Discussed patient with Dr. Hancock from GI. He agrees with discharge at this time with follow-up of GI in the outpatient setting. Due to her blood pressures remained stable with her antihypertensives being held, will continue to hold them at discharge. Orthostatic hypotension resolved. Discussed with patient that she is to follow up with her PCP in regards to these medications and monitor blood pressures at home. Also encouraged patient to have adequate nutritional/fluid intake. Patient was evaluated by PT and no requirements were necessary. Patient discharged home in stable condition with family. She is to follow up with her PCP in 1 week and GI in 3 weeks. Status at Discharge Functional status at discharge: independent ambulation Time Spent with Patient Time attestation: Total time spent providing and/or coordinating discharge services: Time spent: Greater than 30 minutes Exam Narrative: AF HR 84 RR 16 SpO2 98 BP 19/64 General: female in no acute respiratory distress who is nontoxic appearing, lying semi recumbent in bed. HEENT: Normocephalic. Atraumatic. Extraocular movement intact. Sclera clear and anicteric. No facial asymmetry. Chest: Lungs are clear to auscultation bilaterally. No wheezes or crackles. CV: Heart was regular rate and rhythm. S1-S2. No murmurs, gallops, or rubs. Abd: Abdomen was soft. Nontender. Nondistended. Positive bowel sounds. No organomegaly or masses. DS: Data Data Completed and Pending Completed studies during hospitalization: Abdomen/pelvis CT Labs on day of discharge: Labs from last 24 hours 11/15/23 05:21 WBC 4.5 RBC 3.77 L Hgb 11.3 L Hct 34.9 L MCV 92.6 MCH 30.0 MCHC 32.4 RDW 12.4 Plt Count 322 MPV 9.2 Immature Gran % (Auto) 0.2 Neut % (Auto) 40.5 L Lymph % (Auto) 22.1 [place] % (Auto) 33.6 H Eos % (Auto) 2.7 Baso % (Auto) 0.9 Lymph # (Auto) 0.99 [place] # (Auto) 1.5 H Eos # (Auto) 0.1 Baso # (Auto) 0.0 Abs Immat Gran (auto) 0.01 Absolute Neuts (auto) 1.8 Absolute Nucleated RBC 0.000 Nucleated RBC % 0.0 Sodium 135 L Potassium 3.8 Chloride 107 Carbon Dioxide 17 L Anion Gap 11 BUN 12 D Creatinine 0.90 Estim Creat Clear Calc 44 Estimated GFR > 60 Glucose 84 C
--- NOTE | 2023-11-15 13:17 | PCPTNOTE ---
On 11/15/23, the student, [Dominga Dao], provided care and completed [facility] documentation on this patient. I have reviewed the student's documentation and agree with the findings.
[2023-11-15 14:00] VITALS: BP 129/64; PULSE 84; RESP 16; TEMP 36.2; O2SAT 98
--- NOTE | 2023-11-15 15:57 | WPDGIPROGNO ---
Progress Note: A&P Assessment and Plan (1) Diarrhea: Code(s): R19.7 - Diarrhea, unspecified Status: Acute Assessment and Plan: extensive GI work up no major findings feeling better today, just started on questran- recommend to continue and she can come to see us in office (2) Acute kidney injury: Code(s): N17.9 - Acute kidney failure, unspecified Status: Acute Assessment and Plan: resolved (3) Hyponatremia: Code(s): E87.1 - Hypo-osmolality and hyponatremia Status: Acute Assessment and Plan: improved (4) Orthostatic hypotension: Code(s): I95.1 - Orthostatic hypotension Status: Acute Assessment and Plan: treated Subjective Date/time seen: 11/15/23 12:17 Interval history: overall better, she is going home today Review of Systems Review of Systems: All systems reviewed & are unremarkable except as noted in HPI and below Exam Const: General: comfortable and no acute distress HENMT: Face/Nose/Sinus: Normal nares present Eyes: General: appearance normal, both eyes and all related structures Neck: Neck: no JVD Resp: Auscultation: clear to auscultation bilaterally Cardio: Rate: regular rate Rhythm: regular rhythm GI: Inspection: non-distended GI Palp: Yes Soft to palpation Skin: General skin exam: normal color Neuro: General: gait normal Speech: normal speech Extrem: General: normal to inspection Psych: Mental Status: mental status grossly normal Objective Data Vital Signs Vital Signs: Vital Signs - 24 hr 11/14/23 16:28 11/14/23 16:28 11/14/23 16:28 Temperature Pulse Rate Respiratory Rate Blood Pressure 114/58 L 108/65 96/57 L Pulse Oximetry Oxygen Delivery 11/14/23 20:37 11/14/23 20:00 11/15/23 04:26 Temperature 97.7 F 97.8 F Pulse Rate 58 L 87 Respiratory Rate 20 20 Blood Pressure 109/68 104/64 Pulse Oximetry 100 94 Oxygen Delivery Room Air 11/15/23 08:01 11/15/23 08:15 11/15/23 12:37 Temperature Pulse Rate Respiratory Rate Blood Pressure 129/64 Pulse Oximetry 94 Oxygen Delivery Room Air Room Air 11/15/23 12:38 11/15/23 12:38 11/15/23 14:00 Temperature 97.2 F L Pulse Rate 84 Respiratory Rate 16 Blood Pressure 124/66 118/64 129/64 Pulse Oximetry 98 Oxygen Delivery Intake/Output Intake/Output: Intake & Output 11/12/23 11/13/23 11/14/23 11/15/23 23:59 23:59 23:59 23:59 Intake Total 2100 1840 4961.3 770 Output Total 800 Balance 2100 1040 4961.3 770 Meds/Results Radiology Results: ITS Impressions Abdomen/Pelvis CT 11/12/23 16:01 IMPRESSION: 1. Small sliding hiatal hernia. Labs Labs: Laboratory Results - last 24 hr 11/15/23 05:21 WBC 4.5 RBC 3.77 L Hgb 11.3 L Hct 34.9 L MCV 92.6 MCH 30.0 MCHC 32.4 RDW 12.4 Plt Count 322 MPV 9.2 Immature Gran % (Auto) 0.2 Neut % (Auto) 40.5 L Lymph % (Auto) 22.1 [place] % (Auto) 33.6 H Eos % (Auto) 2.7 Baso % (Auto) 0.9 Lymph # (Auto) 0.99 [place] # (Auto) 1.5 H Eos # (Auto) 0.1 Baso # (Auto) 0.0 Abs Immat Gran (auto) 0.01 Absolute Neuts (auto) 1.8 Absolute Nucleated RBC 0.000 Nucleated RBC % 0.0 Sodium 135 L Potassium 3.8 Chloride 107 Carbon Dioxide 17 L Anion Gap 11 BUN 12 D Creatinine 0.90 Estim Creat Clear Calc 44 Estimated GFR > 60 Glucose 84 Calcium 9.0 Total Bilirubin 0.4 AST 22 ALT 20 Alkaline Phosphatase 105 Total Protein 6.0 L Albumin 3.8
[2023-11-16 09:54] LABS: Osmolality, Urine 140 mOsm/kg (50-1200)
== END 2023-11-15 15:25 | disposition home or self-care (01) | DRG 392 ==
LOC: ANHED 16:48 → ANH3MED 17:33
PROVIDERS: Student in an Organized Health Care Education/Training Program; Admitting Provider Internal Medicine; Emergency Provider Student in an Organized Health Care Education/Training Program; PCP Internal Medicine; Visit Provider Student in an Organized Health Care Education/Training Program
DX: K58.0 Irritable bowel syndrome with diarrhea (principal); N17.9 Acute kidney failure, unspecified; E87.1 Hypo-osmolality and hyponatremia; E86.0 Dehydration; E03.9 Hypothyroidism, unspecified; I95.1 Orthostatic hypotension; I10 Essential (primary) hypertension; K44.9 Diaphragmatic hernia without obstruction or gangrene; M06.9 Rheumatoid arthritis, unspecified; Z98.1 Arthrodesis status; Z96.611 Presence of right artificial shoulder joint; Z87.891 Personal history of nicotine dependence
CPT/HCPCS: 36415; 74177; 80048; 80053; 81001; 82570; 83605; 83690; 83930; 83935; 84156; 84300; 85025; 87045; 87427; 87449; 87493; 96365; 96375; 97161; 99285; A9270; J1200; J1956; J2765; J7030; Q9967

== ENCOUNTER 2023-11-23 07:00 | Outpatient (NON) | payer MEDICARE, SELFPAY | END 2023-11-23 07:01 | disposition home or self-care (01) | LOC: ANHLAB 11-24 11:36 | PROVIDERS: PCP Internal Medicine; Visit Provider Internal Medicine Gastroenterology | DX: R19.7 Diarrhea, unspecified (principal) | CPT/HCPCS: 88305 ==

== ENCOUNTER 2023-11-23 08:18 | Day surgery (SDC) | payer MEDICARE, SELFPAY ==
[2023-11-19 10:01] VITALS: BMI 26.0
[2023-11-19 13:57] VITALS: BMI 25.7
--- NOTE | 2023-11-22 12:45 | WPDANESEPPF ---
Anes - Initial Pre Proc Eval Procedure: Operation Date: 11/23/23 11:00 Proposed Procedures p Flexible Sigmoidoscopy - Froilan Peck MD Date/Time: 11/22/23 12:45 Surgeon: Froilan Peck MD Pre Op Diagnosis: Diarrhea,unspecified Patient Data Age: 68 Gender: F Height: 1.6 m Weight: 66 kg Allergies Allergy/AdvReac Type Severity Reaction Status Date / Time hydroxychloroquine Allergy Unknown SWELLING Verified 11/23/23 09:29 [From Plaquenil] AND HIVES codeine AdvReac Unknown Itching Verified 11/23/23 09:29 Home Medications Medication Instructions Recorded Confirmed Type alprazolam 0.5 mg tablet (Xanax) 0.5 mg PO QID PRN Anxiety 02/27/19 11/23/23 History atorvastatin 40 mg tablet 40 mg PO DAILY 02/27/19 11/23/23 History levothyroxine 75 mcg tablet 75 mcg PO QAM 02/27/19 11/23/23 History (Synthroid) rituximab 10 mg/mL 10 mg IV Q4M 03/25/20 11/23/23 History concentrate,intravenous (Rituxan) leflunomide 10 mg tablet 10 mg PO QAM 10/09/20 11/23/23 History baclofen 10 mg tablet 10 mg PO TID PRN muscle pain #12 03/09/22 11/23/23 Rx tabs duloxetine 60 mg capsule,delayed 60 mg PO DAILY 11/12/23 11/23/23 History release cholestyramine-aspartame 4 gram 4 g PO BID@1000,1800 30 days #60 ea 11/15/23 11/23/23 Rx oral powder for susp in a packet (Prevalite) loperamide 2 mg capsule 2 mg PO PRN PRN Diarrhea #30 caps 11/15/23 11/23/23 Rx ondansetron 4 mg disintegrating 4 mg PO Q8H PRN nausea and 11/15/23 11/23/23 Rx tablet vomiting #14 tabs multivitamin p-pusaemsq-grnhlsr 1 tablet PO DAILY 11/19/23 11/23/23 History fumarate 18 mg-vitamin K 25 mcg tablet Patient hx anesthesia problems: none Family hx anesthesia problems: none Results Review: All pre-operative results and documents have been reviewed as part of the pre-operative evaluation. [facility] Past Medical History Medical History (Updated 11/22/23 @ 13:54 by Evaristo Villar DO) Bulging discs Depression Essential hypertension High fecal calprotectin Hyperlipidemia Hypothyroidism Panic attack Rheumatoid arthritis Rheumatoid arthritis involving left knee Right rotator cuff tendonitis Rotator cuff tear, right Sciatic nerve injury Surgical History Surgical History History of repair of right rotator cuff (~04/02/20) RCR w/ SAD and Biceps tenotomy History of tubal ligation Hx of fusion of cervical spine C4-5 Status post reverse total arthroplasty of right shoulder Family History Family History Father Heart disease Mother Heart disease Sibling Rheumatoid arthritis Social History Social History Smoking packs per day: 0.5 Smoking cigarettes per day: 10.0 Years smoked: 15 Smoking pack-years: 7.50 Smoking status: Former smoker Alcohol intake: unknown Drinks per week: 14 Alcohol use details: weekly Substance use: never Substance use type: does not use Do You Feel Safe in your Home?: Yes Lack of Transportation: No Lack of Food: Never True Current Housing: I Have Housing Concerned About Future Housing: No Difficulty Paying Gas/Electric Bills: No Difficulty Paying for Meds: No Currently Unemployed: No Education: Decline to Answer Difficulty w/ Childcare or Family Care: No Living arrangements: with family Additional living arrangements comments: Spiritual care concerns: No Anes - Eval Final PreProcedure Day of Procedure Patient weight: overweight Heart: regular rate and rhythm Lungs: clear to auscultation Airway: Mallampati scale class II Neurological: alert and oriented Last oral intake: >/= 8 hours ASA classification: III Emergent: no Anesthetic plan: proceed Anesthesia type and monitoring: general GIVS and standard monitoring
--- NOTE | 2023-11-22 19:37 | PM.HPGS ---
History of Present Illness History of Present Illness Consent: Risks, benefits, and alternatives have been discussed and questions answered. Patient agrees to proceed with procedure. Chief complaint: Diarrhea,unspecified Narrative: Rhina Sher is a 68 year old female who has history of chronic diarrhea since 2021 for which she had a colonoscopy with Dr De La Paz, normal colon including random biopsies, no colitis (she was told that has IBS with alternating constipation and diarrhea). She had a small-bowel follow-through which was normal and unremarkable CT scan. 5HIAA 24 hour urine was normal, trial of xifaxan did not work. Previous Stool culture, C diff, and pancreatic elastase within normal limits. Negative celiac panel. TSH normal. She was just here again, hospitalized with worsening diarrhea for 3 weeks, just runny stools and progressive generalized weakness, also had n/v, denies sick contacts or taking any new medications. She also is using rituxan and leflunomide (h/o RA). Labs in the hospital- No leukocytosis, no anemia, sodium 128 improved to 135, creatinine 1.7 normalized to 0.9, lactic 1.0. CT of the abdomen pelvis showed a small sliding hiatal hernia as well as liquid stool in the colon. Repeat C diff negative, she was sent home with questran but still with diarrhea 5-6 times a day Review of Systems Review of Systems: All systems reviewed & are unremarkable except as noted in HPI and below PMFSH Past Medical History Medical History Bulging discs Depression Essential hypertension High fecal calprotectin Hyperlipidemia Hypothyroidism Panic attack Rheumatoid arthritis Rheumatoid arthritis involving left knee Right rotator cuff tendonitis Rotator cuff tear, right Sciatic nerve injury Surgical History Surgical History History of repair of right rotator cuff (~04/02/20) RCR w/ SAD and Biceps tenotomy History of tubal ligation Hx of fusion of cervical spine C4-5 Status post reverse total arthroplasty of right shoulder Family History Family History Father Heart disease Mother Heart disease Sibling Rheumatoid arthritis Social History Social History Smoking packs per day: 0.5 Smoking cigarettes per day: 10.0 Years smoked: 15 Smoking pack-years: 7.50 Smoking status: Former smoker Alcohol intake: unknown Drinks per week: 14 Alcohol use details: weekly Substance use: never Substance use type: does not use Do You Feel Safe in your Home?: Yes Lack of Transportation: No Lack of Food: Never True Current Housing: I Have Housing Concerned About Future Housing: No Difficulty Paying Gas/Electric Bills: No Difficulty Paying for Meds: No Currently Unemployed: No Education: Decline to Answer Difficulty w/ Childcare or Family Care: No Living arrangements: with family Additional living arrangements comments: Spiritual care concerns: No Meds Home Medications and Allergies Home Medications Medication Instructions Recorded Confirmed Type alprazolam 0.5 mg tablet (Xanax) 0.5 mg PO QID PRN Anxiety 02/27/19 11/23/23 History atorvastatin 40 mg tablet 40 mg PO DAILY 02/27/19 11/23/23 History levothyroxine 75 mcg tablet 75 mcg PO QAM 02/27/19 11/23/23 History (Synthroid) rituximab 10 mg/mL 10 mg IV Q4M 03/25/20 11/23/23 History concentrate,intravenous (Rituxan) leflunomide 10 mg tablet 10 mg PO QAM 10/09/20 11/23/23 History baclofen 10 mg tablet 10 mg PO TID PRN muscle pain #12 03/09/22 11/23/23 Rx tabs duloxetine 60 mg capsule,delayed 60 mg PO DAILY 11/12/23 11/23/23 History release cholestyramine-aspartame 4 gram 4 g PO BID@1000,1800 30 days #60 ea 11/15/23 11/23/23 Rx oral powder for susp in a packet (Prevalite) loperamide 2 mg capsul
[2023-11-23 09:39] VITALS: BMI 25.0
[2023-11-23 09:40] VITALS: BP 117/74; PULSE 89; RESP 16; TEMP 36.5; O2SAT 97
[2023-11-23] MEDS: LACTATED RINGERS 1,000 ML 150 ML IV CONT (09:52)
[2023-11-23 10:32] VITALS: BP 88/65; PULSE 79; RESP 15; O2SAT 95
--- NOTE | 2023-11-23 10:36 | WPDANESPN ---
Anes - Prog Note Post-Op Date/Time: 11/23/23 10:36 Cardiovascular status: normal Respiratory status: normal Airway patency: baseline Mental status: baseline Post-Op hydration status: normal Vital Signs: Last Vital Signs Temp 36.5 C 11/23/23 09:40 Pulse 79 11/23/23 10:32 Resp 15 11/23/23 10:32 BP 88/65 L 11/23/23 10:32 Pulse Ox 95 11/23/23 10:32 O2 Del Method Room Air 11/23/23 10:32 Pain Score (VAS): 0 I/O: Intake & Output 11/22/23 11/23/23 11/23/23 23:59 07:59 15:59 Intake Total 400 Balance 400 Post-procedural complaints: none Patient Feedback: Patient satisfied with anesthetic care. Other Findings: Patient vital signs back to baseline. Patient denies nausea and vomiting. Patient's pain under control. Patient OK for discharge.
[2023-11-23 10:42] VITALS: BP 93/59; PULSE 77; RESP 15; O2SAT 96
[2023-11-23 10:52] VITALS: BP 105/72; PULSE 75; RESP 16; O2SAT 100
== END 2023-11-23 11:03 | disposition home or self-care (01) ==
PROVIDERS: PCP Internal Medicine; Visit Provider Internal Medicine Gastroenterology
PROC: 0DJD8ZZ Inspection of Lower Intestinal Tract, Via Natural or Artificial Opening Endoscopic (ICD-10-PCS; CPT 45330; principal; 2023-11-23 11:00)
DX: K59.1 Functional diarrhea (principal); K51.30 Ulcerative (chronic) rectosigmoiditis without complications
CPT/HCPCS: 45331

== ENCOUNTER 2024-05-10 12:10 | Inpatient (IN) | payer MEDICARE, SELFPAY ==
[2024-05-10] VITALS (22 sets, daily range): BP systolic 80–139; BP diastolic 49–73; PULSE 93–150; RESP 7–22; TEMP 37.2–39.6; O2SAT 91–100; BMI 24.9
--- NOTE | ~2024-05-10 | XR_ITS ---
EXAMINATION: XR chest 1V portable DATE: 05/10/2024 14:29 INDICATION: Cough. TECHNIQUE: A single frontal view of the chest was obtained. COMPARISON: CT abdomen and pelvis 11/12/2023 FINDINGS: There are airspace opacities in right mid and lower lung zones, consistent with pneumonia. No pleural effusion or pneumothorax. The heart size is normal. There is a total right shoulder arthro plasty. There are changes of anterior fusion procedure in cervical spine. IMPRESSION: 1. Airspace opacities in right mid and lower lung zones, consistent with pneumonia. Reviewed, dictated and finalized at location A. [facility] IMPRESSION: 1. Airspace opacities in right mid and lower lung zones, consistent with pneumo maurice.
--- NOTE | 2024-05-10 12:24 | ECG_ITS ---
Test Date: 2024-05-10 12:35:21 Measurements Intervals [place] Rate: 133 P: 29 SC: 152 QRS: -33 QRSD: 91 T: 59 QT: 305 QTc: 454 Interpretive Statements SINUS TACHYCARDIA LEFT AXIS DEVIATION INCOMPLETE RIGHT BUNDLE BRANCH BLOCK CANNOT R/O SEPTAL INFARCT, AGE INDETERMINATE BORDERLINE ST-T WAVE ABNORMALITY- LAT/HIGH LAT LEADS ABNORMAL ECG No previous ECG available for comparison Electronically Signed On 05-10-2024 13:30:39 [employer] by Neo Starks D.O.
--- NOTE | 2024-05-10 12:26 | ED.URI ---
HPI - URI/Sore Throat General Chief Complaint: Upper Respiratory Infection <Jennifer Hatfield APRN - Last Filed: 05/10/24 12:32> Stated Complaint: URI sx <Jennifer Hatfield APRN - Last Filed: 05/10/24 12:32> Time Seen by Provider: 05/10/24 12:20 <Jennifer Hatfield APRN - Last Filed: 05/10/24 12:32> Focused HPI: Patient is a 69-year-old female who presents to the ER with complaints of chills, congestion, cough, weakness, decreased oxygenation saturations. She reports her was diagnosed with influenza a yesterday. Patient reports her hands are tingling. She reports she has a history of rheumatoid arthritis, hypertension, hypothyroidism. Patient denies any back pain, urinary symptoms. GENERAL: Ill-appearing, well-nourished, and in acute distress. HEAD: Normocephalic, atraumatic. CHEST: Clear to auscultation, although pt endorses wheezing. Tachypnea HEART: Tachycardia. regular rhythm. NEURO: ?Alert and oriented x3. Patient screened in triage and initial orders placed.? ?Additional care and disposition to be based upon?diagnostic testing and treatment. <Jennifer Hatfield APRN - Last Filed: 05/10/24 12:32> History of Present Illness HPI Narrative: patient is a 69-year-old female who presents emergency department with chief complaint of chills body aches cough congestion and decreased oxygen saturation family was diagnosed with influenza A the patient reports that she feels unwell and reports that her heart was beating fast in her oxygen saturations were in the 80s <Christian Duran MD - Last Filed: 05/10/24 15:12> Related Data Home Medications: Home Medications ?Medication ?Instructions ?Recorded ?Confirmed ?Last Taken ?Type alprazolam 0.5 mg tablet (Xanax) 0.5 mg PO QID PRN Anxiety 02/27/19 02/25/24 11/22/23 History atorvastatin 40 mg tablet 40 mg PO DAILY 02/27/19 02/25/24 11/22/23 History levothyroxine 75 mcg tablet 75 mcg PO QAM 02/27/19 02/25/2424 History (Synthroid) rituximab 10 mg/mL 10 mg IV Q4M 03/25/20 02/25/24 10/13/23 History concentrate,intravenous (Rituxan) leflunomide 10 mg tablet 10 mg PO QAM 10/09/20 02/25/24 11/22/23 History duloxetine 60 mg capsule,delayed 60 mg PO DAILY 11/12/23 02/25/24 11/22/23 History release multivitamin r-cyhwqekf-rqtnauz 1 tablet PO DAILY 11/19/23 02/25/24 11/20/23 History fumarate 18 mg-vitamin K 25 mcg tablet amlodipine 5 mg tablet 5 mg PO DAILY 02/25/24 02/25/24 Unknown History losartan 100 mg tablet 100 mg PO DAILY 02/25/24 02/25/24 Unknown History <Jennifer Hatfield APRN - Last Filed: 05/10/24 12:32> Allergies/Adverse Reactions: Allergies Allergy/AdvReac Type Severity Reaction Status Date / Time hydroxychloroquine (From Allergy Unknown SWELLING Verified 02/25/24 13:13 Plaquenil) AND HIVES codeine AdvReac Unknown Itching Verified 02/25/24 13:13 <Jennifer Hatfield APRN - Last Filed: 05/10/24 12:32> [facility] Past Medical History Medical History: Medical History Bulging discs Depression Essential hypertension High fecal calprotectin Hyperlipidemia Hypothyroidism Panic attack Rheumatoid arthritis Rheumatoid arthritis involving left knee Right rotator cuff tendonitis Rotator cuff tear, right Sciatic nerve injury <Jennifer Hatfield APRN - Last Filed: 05/10/24 12:32> Surgical History Surgical History: Surgical History History of repair of right rotator cuff (~04/02/20) RCR w/ SAD and Biceps tenotomy History of tubal ligation Hx of fusion of cervical spine C4-5 Status post reverse total arthroplasty of right shoulder <Jennifer Hatfield APRN - Last Filed: 05/10/24 12:32> Family History Family History: Family History Father Heart disease Mother Heart disease Sibling Rheumatoid arthritis <Jennifer Hatfield, FREELANCE MAKEUP ARTIST - Last Filed: 05/10/24 12:32> Social History Social History: Social History Smoking packs per day: 0.5 Smoking cigarettes per day: 10.0 Years smoked: 15 Smoking pack-years: 7.50 Smoking status: Former smoker Alcohol intake: unknown Drinks per week: 14 Alcohol use details: weekly Substance use: never Substance use type: does not use Do You Feel Safe in your Home?: Yes Lack of Transportation: No Lack of Food: Never True Current Housing: I Have Housing Concerned About Future Housing: No Difficulty Paying Gas/Electric Bills: No Difficulty Paying for Meds: No Currently Unemployed: No Education: Decline to Answer Difficulty w/ Childcare or Family Care: No Living arrangements: with family Additional living arrangements comments: Spiritual care concerns: No <Jennifer Hatfield, FREELANCE MAKEUP ARTIST - Last Filed: 05/10/24 12:32> Course Vital Signs Vital signs: Vital Signs Pulse Rate 135 H 05/10/24 12:30 Respiratory Rate 17 05/10/24 12:30 Blood Pressure 139/73 05/10/24 12:30 Pulse Oximetry 92 05/10/24 12:30 Temperature 39.6 C H 05/10/24 12:31 Pulse Rate 150 H 05/10/24 12:31 Respiratory Rate 20 05/10/24 12:31 Blood Pressure 104/56 L 05/10/24 12:31 Pulse Oximetry 95 05/10/24 12:34 Oxygen Delivery Nasal Cannula 05/10/24 12:34 Oxygen Flow Rate 2 05/10/24 12:34 <Jennifer Hatfield, FREELANCE MAKEUP ARTIST - Last Filed: 05/10/24 12:32> Vital Signs Pulse Rate 135 H 05/10/24 12:30 Respiratory Rate 17 05/10/24 12:30 Blood Pressure 139/73 05/10/24 12:30 Pulse Oximetry 92 05/10/24 12:30 Temperature 39.6 C H 05/10/24 12:31 Pulse Rate 150 H 05/10/24 12:31 Respiratory Rate 20 05/10/24 12:31 Blood Pressure 104/56 L 05/10/24 12:31 Pulse Oximetry 95 05/10/24 12:34 Oxygen Delivery Nasal Cannula 05/10/24 12:34 Oxygen Flow Rate 2 05/10/24 12:34 <Christian Duran MD - Last Filed: 05/10/24 15:12> MDM - URI/Sore Throat Lab Data Result diagrams: 05/10/24 13:09 05/10/24 13:08 <Jennifer Hatfield APRN - Last Filed: 05/10/24 12:32> Labs: Lab Results 05/10/24 05/10/24 05/10/24 Range/Units 12:16 13:08 13:09 WBC 7.1 (4.5-10.0) K/mm3 RBC 4.31 (4.2-5.4) M/mm3 Hgb 13.5 (12.0-15.0) g/dL Hct 39.7 (37.0-47.0) % MCV 92.1 (80-100) fl MCH 31.3 (26-34) pg MCHC 34.0 (32-36) g/dl RDW 12.8 (11.5-14.5) % Plt Count 213 (150-375) k/mm3 MPV 10.0 (7.4-10.4) fl Immature Gran % (Auto) Not Reportable Neut % (Auto) Not Reportable Lymph % (Auto) Not Reportable [place] % (Auto) Not Reportable Eos % (Auto) Not Reportable Baso % (Auto) Not Reportable Lymph # (Auto) Not Reportable [place] # (Auto) Not Reportable Eos # (Auto) Not Reportable Baso # (Auto) Not Reportable Abs Immat Gran (auto) Not Reportable Absolute Neuts (auto) Not Reportable Absolute Nucleated RBC Not Reportable Total Counted 100 Neutrophils % (Manual) 76 H (46-73) % Band Neutrophils % 14 H (0-6) % Lymphocytes % (Manual) 6.0 L (18-44) % Monocytes % (Manual) 4 (3-9) % Nucleated RBC % Not Reportable Abs Neuts (Manual) 6.39 (1.7-7.2) K/mm3 Abs Lymphs (Manual) 0.42 L (1.1-4.5) K/mm3 Abs Monocytes (Manual) 0.28 (0.1-0.90) K/mm3 Platelet Estimate Adequate (Adequate) Schistocytes None seen Sodium 133 L (137-145) mmol/L Potassium 2.8 L* (3.4-5.0) mmol/L Chloride 99 (98-107) mmol/L Carbon Dioxide 22 (22-30) mmol/L Anion Gap 12 (4-12) mmol/L BUN 18 H (7-17) mg/dL Creatinine 0.65 L (0.7-1.0) mg/dL Estim Creat Clear Calc 64 ml/min Estimated GFR > 60 (59 - ) Glucose 113 H (65-110) mg/dL Calcium 9.2 (8.4-10.2) mg/dL Magnesium 1.5 L (1.6-2.3) mg/dL Total Bilirubin 0.9 (0.2-1.3) mg/dL AST 25 (14-36) U/L ALT 29 (6-35) U/L Alkaline Phosphatase 81 (38-126) U/L Troponin I < 0.012 (0.000-0.034) ng/mL NT-Pro-B Natriuret Pep 135 H (19.9-100) pg/mL Total Protein 7.0 (6.3-8.2) g/dL Albumin 4.3 (3.5-5.1) g/dL Influenza A (RT-PCR) Negative (Negative) Influenza B (RT-PCR) Negative (Negative) RSV (RT-PCR) Positive A (Negative) SARS-CoV-2 RNA (RT-PCR) Negative (Negative) <Jennifer Hatfield, FREELANCE MAKEUP ARTIST - Last Filed: 05/10/24 12:32> Lab Results 05/10/24 05/10/24 05/10/24 Range/Units 12:16 13:08 13:09 WBC 7.1 (4.5-10.0) K/mm3 RBC 4.31 (4.2-5.4) M/mm3 Hgb 13.5 (12.0-15.0) g/dL Hct 39.7 (37.0-47.0) % MCV 92.1 (80-100) fl MCH 31.3 (26-34) pg MCHC 34.0 (32-36) g/dl RDW 12.8 (11.5-14.5) % Plt Count 213 (150-375) k/mm3 MPV 10.0 (7.4-10.4) fl Immature Gran % (Auto) Not Reportable Neut % (Auto) Not Reportable Lymph % (Auto) Not Reportable [place] % (Auto) Not Reportable Eos % (Auto) Not Reportable Baso % (Auto) Not Reportable Lymph # (Auto) Not Reportable [place] # (Auto) Not Reportable Eos # (Auto) Not Reportable Baso # (Auto) Not Reportable Abs Immat Gran (auto) Not Reportable Absolute Neuts (auto) Not Reportable Absolute Nucleated RBC Not Reportable Total Counted 100 Neutrophils % (Manual) 76 H (46-73) % Band Neutrophils % 14 H (0-6) % Lymphocytes % (Manual) 6.0 L (18-44) % Monocytes % (Manual) 4 (3-9) % Nucleated RBC % Not Reportable Abs Neuts (Manual) 6.39 (1.7-7.2) K/mm3 Abs Lymphs (Manual) 0.42 L (1.1-4.5) K/mm3 Abs Monocytes (Manual) 0.28 (0.1-0.90) K/mm3 Platelet Estimate Adequate (Adequate) Schistocytes None seen Sodium 133 L (137-145) mmol/L Potassium 2.8 L* (3.4-5.0) mmol/L Chloride 99 (98-107) mmol/L Carbon Dioxide 22 (22-30) mmol/L Anion Gap 12 (4-12) mmol/L BUN 18 H (7-17) mg/dL Creatinine 0.65 L (0.7-1.0) mg/dL Estim Creat Clear Calc 64 ml/min Estimated GFR > 60 (59 - ) Glucose 113 H (65-110) mg/dL Calcium 9.2 (8.4-10.2) mg/dL Magnesium 1.5 L (1.6-2.3) mg/dL Total Bilirubin 0.9 (0.2-1.3) mg/dL AST 25 (14-36) U/L ALT 29 (6-35) U/L Alkaline Phosphatase 81 (38-126) U/L Troponin I < 0.012 (0.000-0.034) ng/mL NT-Pro-B Natriuret Pep 135 H (19.9-100) pg/mL Total Protein 7.0 (6.3-8.2) g/dL Albumin 4.3 (3.5-5.1) g/dL Influenza A (RT-PCR) Negative (Negative) Influenza B (RT-PCR) Negative (Negative) RSV (RT-PCR) Positive A (Negative) SARS-CoV-2 RNA (RT-PCR) Negative (Negative) <Christian Duran MD - Last Filed: 05/10/24 15:12> Discharge Plan Discharge Clinical Impression: Acute hypoxic respiratory failure, RSV infection, Hypomagnesemia, Acute hypokalemia, Pneumonia <Jennifer Hatfield APRN - Last Filed: 05/10/24 12:32> Patient Disposition: Still a Patient <Jennifer Hatfield APRN - Last Filed: 05/10/24 12:32> Condition: Stable <Jennifer Hatfield APRN - Last Filed: 05/10/24 12:32> Patient Language: American <Jennifer Hatfield APRN - Last Filed: 05/10/24 12:32> Prescriptions: No Action baclofen 10 mg tablet 10 mg PO TID PRN (Reason: muscle pain) Qty: 12 0RF atorvastatin 40 mg tablet 40 mg PO DAILY levothyroxine [Synthroid] 75 mcg tablet 75 mcg PO QAM alprazolam [Xanax] 0.5 mg tablet 0.5 mg PO QID PRN (Reason: Anxiety) Patient Comments: pt stated she took 1/2 a tab amlodipine 5 mg tablet 5 mg PO DAILY losartan 100 mg tablet 100 mg PO DAILY loperamide 2 mg capsule 2 mg PO DAILY PRN (Reason: loose stool) Qty: 30 3RF budesonide 3 mg capsule,delayed,extend.release 9 mg PO DAILY Qty: 90 1RF Rituxan 10 mg/mL Concentrate 10 mg IV Q4M Patient Comments: IV INFUSION EVERY 4 MONTHS Rx Instructions: FOR RHEUMATOID ARTHRITIS leflunomide 10 mg tablet 10 mg PO QAM duloxetine 60 mg capsule,delayed release(DR/EC) 60 mg PO DAILY loperamide 2 mg Capsule 2 mg PO PRN PRN (Reason: Diarrhea) Qty: 30 0RF ondansetron 4 mg tablet,disintegrating 4 mg PO Q8H PRN (Reason: nausea and vomiting) Qty: 14 0RF yivkwpeb-dek-stys-vitamin K 18 mg iron-25 mcg Tablet 1 tablet PO DAILY <Jennifer Hatfield APRN - Last Filed: 05/10/24 12:32> Follow-up/Referrals: Green,Christian Jane MD [Primary Care Provider] - <Jennifer Hatfield APRN - Last Filed: 05/10/24 12:32> Time of Disposition: 15:12 <Jennifer Hatfield APRN - Last Filed: 05/10/24 12:32> 15:12 <Christian Duran MD - Last Filed: 05/10/24 15:12>
[2024-05-10] MEDS: SODIUM CHLORIDE 0.9% IV 1,000 ML 999 ML IV CONT ×4 (12:58→19:08)
[2024-05-10] MEDS: ONDANSETRON INJ 4 MG/2 ML VIAL IV PUSH (12:59)
[2024-05-10] MEDS: ACETAMINOPHEN 500 MG TABLET 1000 MG PO (12:59)
[2024-05-10 13:04] LABS: Influenza A QL RT-PCR Negative (Negative); Influenza B QL RT-PCR Negative (Negative); RSV RNA, RT-PCR Positive (Negative); SARS-CoV-2 RNA PCR Negative (Negative)
--- OUTSIDE RECORDS SUMMARY | 2024-05-10 13:18 | XMS_ITS | Referral Summary ---
Author Organization [facility] Address [address] [place] [address] Care Team Providers Care Manager Target Name Role Phone Unavailable Primary Care Provider Unavailabl e Source Comments [facility],non-owned Affiliates and Associated Physician Practices is amultiple site organization consisting of ambulatory clinics and hospital sitesin [place], [place], [place] and [place]. This disclosure is being madepursuant to the Care Everywhere program and may not contain all information available regarding this patient. Last updated 17.[facility] [employer] Social History Tobacco Use Types Packs/Day Years Used Date Smoking Tobacco: Never Assessed Sex and Gender Information Value Date Recorded Sex Assigned at Not on file Gender Identity Not on file Sexual Orientation Not on file [place] [address] Rhina Sher Personal/Family Self [address] [place] [address] [place] [address]
--- OUTSIDE RECORDS SUMMARY | 2024-05-10 13:18 | XMS_ITS | Patient Health Summary ---
Author Organization [facility] Address [address] [place] [address] Care Team Providers Care Radio Board Operator Announcer Name Role Phone Unavailable Primary Care Provider Unavailabl e Note from [facility],non-owned Affiliates and Associated Physician Practices is amultiple site organization consisting of ambulatory clinics and hospital sitesin [place], [place], [place] and [place]. This disclosure is being madepursuant to the Care Everywhere program and may not contain all informatio navailable regarding this patient. Last updated 17.[facility] Social History Tobacco Use Types Packs/Day Years Used Date Smoking Tobacco: Never Assessed Sex and Gender Information Value Date Recorded Sex Assigned at Not on file Gender Identity Not on file Sexual Orientation Not on file Procedures * XR PELVIS W BILAT HIP 2VW(Performed 09/06/2015) Performed for Left hip pain Results * XR PELVIS W BILAT HIP 2VW (09/06/2015 12:06 PM CDT) Anatomical Region Laterality Modality Pelvis, Lower Extremity [facility] 09/06/2015 1:24 PM CDT Impressions 09/06/2015 1:34 PM CDT Unremarkable study. Edited by Cate Toussaint on 09/06/2015 1:31 PM Narrative 09/06/2015 1:34 PM CDT BILATERAL HIPS AND PELVIS. HISTORY: Pain. An AP view of the pelvis and views of each hip demonstrate well maintained joint spaces. There is no fracture, lytic or blastic lesion. Procedure Note Cole Erickson MD - 09/06/2015 BILATERAL HIPS AND PELVIS. HISTORY: Pain. An AP view of the pelvis and views of each hip demonstrate well maintained joint spaces. There is no fracture, lytic or blastic lesion. IMPRESSION Unremarkable study. Edited by Cate Toussaint on 09/06/2015 1:31 PM Giuseppe Edge III, MD DIAGNOSTIC IM[facility]
--- OUTSIDE RECORDS SUMMARY | 2024-05-10 13:19 | XMS_ITS | Clinical Summary ---
Author Organization [facility] Address [address] [place] [address] Care Team Providers Care Senior Java Web Developer Name Role Phone Unavailable Primary Care Provider Unavailabl e Source Comments [facility],non-owned Affiliates and Associated Physician Practices is amultiple site organization consisting of ambulatory clinics and hospital sitesin [place], [place], [place] and [place]. This disclosure is being madepursuant to the Care Everywhere program and may not contain all information available regarding this patient. Last updated 17.[facility] Social History Tobacco Use Types Packs/Day Years Used Date Smoking Tobacco: Never Assessed Sex and Gender Information Value Date Recorded Sex Assigned at Not on file Gender Identity Not on file Sexual Orientation Not on file Plan of Treatment Health Maintenance Due Date Last Done Comments BONE DENSITY TESTING 1955 COLOGUARD (AGES 45-75) - COL ON CA SCREENING 1955 COLON MONITORING 1956 COLONOSCOPY - COLON CA SCREENING 1956 CT COLONOGRAPHY - COLON CA SCREENING 1955 Colorectal Cancer Screening 1955 FIT - COLON CA SCREENING 1955 FLEX SIG - COLON CA SCREENING 1955 LIPID TESTING 1955 MAMMOGRAM 1955 MEDICARE AWV ? 12 MONTHS 1955 HEPATITIS C SCREENING 03/12/1974 DTAP/TDAP/TD VACCINES (1 - Tdap) 1975 PNEUMOCOCCAL VACCINE 50+ (1 of 1 - PCV) 2006 ZOSTER VACCINE (1 of 2) 2006 COVID-19 VACCINE (1 - 2024-2 5 season) 2023 INFLUENZA VACCINE (#1) 2023 DEPRESSION SCREENING 04/05/2024 Respiratory Syncytial Virus (RSV) Vaccine Pt: or over 60 yrs (1 - 1-dose 75+ series) 2031 HEPATITIS B VACCINE Aged Out No longe r eligible based on patient's age to complete this topic HIB VACCINE Aged Out No longer eligi ble based on patient's age to complete this topic HPV VACCINE Aged Out No longer eligi ble based on patient's age to complete this topic MENINGOCOCCAL (Group B) VACCINE Aged Out No longer eligible based on patient's age to complete this topic MENINGOCOCCAL VACCINE Aged Out No mimi gilberto eligible based on patient's age [place] [address] Rhina Sher Personal/Family Self [address] [place] [address] [place] [address]
--- OUTSIDE RECORDS SUMMARY | 2024-05-10 13:19 | XMS_ITS | Clinical Summary ---
Author Organization [facility] Address [address] [address] Phone Care Team Providers Care Doctor Of Nurse Anesthesia Name Role Phone Unavailable Primary Care Provider Unavailabl e Social History Tobacco Use Types Packs/Day Years Used Date Smoking Tobacco: Never Assessed Comments Unknown Sex and Gender Information Value Date Recorded Sex Assigned at Not on file Legal Sex Female 12:04 PM CDT Gender Identity Not on file Sexual Orientation Not on file Plan of Treatment Health Maintenance Due Date Last Done Comments DTAP/TDAP/TD VACCINES (1 - Tdap) 1975 BREAST CANCER SCREENING 1996 COLORECTAL SCREENING 2001 Colorectal Cancer Screening 2001 FIT-DNA Q 3 years 2001 FIT/FOBT Q 1 year 2001 Flex Sig/CT Colonography Q 5 years 2001 PNEUMOCOCCAL VACCINE 65+ YEARS (1 of 1 - PCV) 03/16/20 06 ZOSTER VACCINE (1 of 2) 2006 OSTEOPOROSIS SCREENING 2021 INFLUENZA VACCINE (#1) 2023 RSV VACCINE (60+ or ) (1 - 1-dose 75+ series) 2031 Insurance [facility] [id number]
--- OUTSIDE RECORDS SUMMARY | 2024-05-10 13:19 | XMS_ITS | Referral Summary ---
Author Organization [facility] [address] [facility] Address [address] [place] [address] Phone Care Team Providers Care Cleaner Assistant Name Role Phone Aime Garnica MD Primary Care Provider + Cynthia Harrison MD Unavailable Allergies Active Allergy Reactions Criticality Noted Date Comments Bupropion Hydroxychloroquine Rosuvastatin Muscle pain Reaction: Myalgias, , Reaction: Myalgias, Telithromycin Medications ibuprofen (ADVIL,MOTRIN) 200 mg tablet take 4 tablet by oral route every 6 hours as needed with food 0 0 6 Active linaclotide (LINZESS) 145 mcg capsule take 1 capsule by oral route every day on an empty stomach at least 30 minutes before 1st meal of the day swallowing whole. Do not break, chew and/or open. 0 0 6 Active Additional Information Patient not taking.Reported on 10/25/2023 fluticasone (FLONASE) 50 mcg/actuation nasal spray inhale 2 spray by Intranasal route every day in each nostril 1 spray 1 5 Active omega-3 fatty acids (LOVAZA) 1 gram capsule TAKE 2 CAPSULE (2G) BY ORAL ROUTE 2 TIMES EVERY DAY 400 3 3 Active cholecalciferol (VITAMIN D3) 1,000 unit capsule 1 daily 0 0 6 Active cyclobenzaprine (FLEXERIL) 10 mg tablet take 1 tablet by ORAL route once 30 11 5 Active Additional Information Patient not taking.Reported on 10/25/2023 cyanocobalamin (vitamin B-12) 1,000 mcg tablet take 1 by Oral route every day 0 0 4 Active Ca-D3-mag mk-rdkb-kkh-man g-bor (CALCIUM 600-D3 PLUS) 600 mg calcium- 800 unit-50 mg tablet take 1 tablet by oral route every day 0 0 4 Active cetirizine (ZyrTEC) 10 mg tablet take 0.5 tablet by ORAL route every day 0 0 4 Active citalopram (CeleXA) 40 mg tabletIndicatio ns:Anxiety with Depression Take 1 tablet (40 mg total) by mouth daily. 90 tablet 3 7 Active levothyroxine (SYNTHROID) 50 mcg tablet Take 1 tablet (50 mcg total) by mouth daily. 90 tablet 3 7 Active ALPRAZolam (XANAX) 0.5 mg tablet Take one by mouth 4 times a day as needed 360 tablet 7 Active predniSONE (DELTASONE) 5 mg tablet Take 2 tabs (10 mg) x 5 days, then 1 tab (5 mg) x 5 days, then 1/2 tab (2.5 mg) x 5 days 30 tablet 7 Active Additional Information Patient not taking.Reported on 10/25/2023 naproxen-esomep razole (VIMOVO) 500-20 mg tablet,IR & delay rel,biphasic Take 1 tablet twice daily 60 tablet 2 8 Active Additional Information Patient not taking.Reported on 10/25/2023 ACTEMRA 162 mg/0.9 mL syringe INJECT ONE SYRINGE UNDER THE SKIN (SUBCUTANEOUS INJECTION) ONCE A WEEK DIRECTED 4 Syringe 1 8 Active Additional Information Patient not taking.Reported on 10/25/2023 predniSONE (DELTASONE) 5 mg tabletIndicatio ns:autoimmune disease Take 10mg(2tabs) x 5days, 5mg(1tabs) x 5days, 2.5mg(half tabs) x 5 days then stop 30 tablet 8 Active Additional Information Patient not taking.Reported on 10/25/2023 sulfaSALAzine EN (AZULFIDINE EN) 500 mg EC tablet Take 3 tablets (1,500 mg total) by mouth 2 (two) times a day. 540 tablet 8 Active Additional Information Patient not taking.Reported on 10/25/2023 traMADol (ULTRAM) 50 mg tablet Take 1 tablet (50 mg total) by mouth every 6 (six) hours. 90 tablet 8 Active Additional Information Patient not taking.Reported on 10/25/2023 baclofen (LIORESAL) 10 mg tablet Take 1 tablet (10 mg total) by mouth 3 (three) times a day Active leflunomide (ARAVA) 10 mg tabletIndicatio ns:Rheumatoid Arthritis Take 1 tablet (10 mg total) by mouth daily Active amLODIPine (NORVASC) 5 mg tablet Take 1 tablet (5 mg total) by mouth daily 4 Active atorvastatin (LIPITOR) 40 mg tablet Take 1 tablet (40 mg total) by mouth daily 4 Active losartan (COZAAR) 100 mg tablet Take 1 tablet (100 mg total) by mouth daily 4 Active spironolactone (ALDACTONE) 25 mg tablet Take 1 tablet (25 mg total) by mouth daily 4 Active riTUXimab (RITUXAN) 10 mg/mL injection Infuse 100 mL (1,000 mg total) into a venous catheter every 4 (four) months Active Active Problems Problem Noted Date Diagnosed Date COVID-19 03/28/2021 Bilateral shoulder pain 12/02/2017 Assessment & Plan (12/02/2017 1:13 PM CDT): Provided pennsaid. Patient defers ortho referral or PT. Diarrhea 06/23/2017 Assessment & Plan (06/23/2017 12:06 PM CDT): Likely infectious. Recently traveled to [facility]. Since returning, she has had 4-5 loose, foul smelling stools daily. Denies blood, n/v, tenesmus. Will check stool sample - O&P, giardia. Also in ddx: h/o IBS vs. Viral vs. Inflammatory. Vs medications (currently on ssz) Chronic SI joint pain 04/01/2017 Assessment & Plan (07/20/2017 1:02 PM CDT): MRI in 04/2017 showed right SI joint inflammation, possible inflammatory sacroiliitis vs. oa. Will administer triamcinolone shot today for both right shoulder pain and right hip pain. She was given a dose or oral steroids at her previous appointment for her shoulder pain and stated it helped. Acquired hypothyroidism 11/02/2016 Healthcare maintenance 10/30/2016 Chronic left-sided low back pain with left-sided sciatica 10/26/2016 Assessment & Plan (03/19/2017 4:45 PM ENVIRONMENTAL CONSERVATION OFFICER): Went to PT and is feeling worse. Pain across the low back and buttocks but not radiating to legs currently. Will repeat xray of lumbar spine and SI joints. Taking 16 ibuprofen daily. Will try changing to a different nsaid with PPI for GI protection. Samples of vimovo given, call back if she wants script. Discussed referral to pain mgmt and she wants to wait. Assessment & Plan (02/15/2017 10:18 AM ENVIRONMENTAL CONSERVATION OFFICER): Went to PT Fatty liver 10/01/2016 Assessment & Plan (07/20/2017 12:57 PM CDT): Elevated ALT. Will continue to monitor. Rheumatoid arthritis of [facility] sites without rheumatoid factor ([facility]/HCC) 10/01/2016 Overview (03/19/2017): Neg quantiferon 08/19 vectra 42 in 08/19. 41 in 02/19 U/s 08/19: mild synovitis, grade 2 PD in wrist U/s 01/19: mild synovitis, grade 2 PD in wrist and grade 1 in 2,3 PIPs On actemra and ssz. Off mtx, leflunomide due to fatty liver/elevated LFTs Inadequate response to humira, orencia Assessment & Plan (12/02/2017 1:12 PM CDT): Patient disease activity is low. Patient is to SSZ and Xeljanz. She continues to feel that the xeljanz is helping. . Will check routine labs in January. Assessment & Plan (09/28/2017 12:42 PM CDT): Patient disease activity is moderate. Patient is to continue SSZ and Xeljanz. Provided samples of two months. Will try to get medication approved. Had patient sign xelsource form. Will check routine labs today. Upep was not done properly, will reorder. Will also repeat quant gold today. Assessment & Plan (07/20/2017 1:05 PM CDT): Patient disease activity is moderate on ACTEMRA and SSZ. She states as of 07/04/2017 she will no longer receive financial support for her Actemra bc she will be on medicare. Patient is to continue current regimen for now.We will give her samples of Xeljanz to take pending results of SPEP and UPEP. Will check routine labs today. Will also check SPEP and UPEP d/t elevated A/G ratio on recent blood work. Follow up in 1 mo, sooner if needed. Pt seen w/ Chiara Barrera PA-C Assessment & Plan (06/23/2017 12:05 PM CDT): Patient disease activity is high on ssz and actemra. Currently flaring. Likely exacerbated by her current GI issues. Patient is to continue current regimen. Would like to give her a steroid shot, but given her GI issues, will hold off. We will send in prednisone taper for her to take after the results of her stool samples. Will check routine labs today along w/ stool sample. Follow up in 3 mo, sooner if needed. Pt seen w/ Chiara Barrera PA-C Assessment & Plan (03/19/2017 11:13 AM ENVIRONMENTAL CONSERVATION OFFICER): cdai = 11 Last visit we increased ssz to 3 tabs BID due to persistent power doppler on u/s. On actemra weekly. She thinks her hands are slightly better. Vectra was 42 in 08/19. Repeat result was 41 in 02/19. In 01/19 u/s showed mild synovitis with grade 2 power doppler in the wrist and grade 1 in the 2nd,3rd PIPs Will repeat labs, check hand u/s again in about 3 months before next visit. Inadequate response to humira and orencia previously. Avoid mtx, leflunomide due to fatty liver. Assessment & Plan (02/15/2017 10:38 AM ENVIRONMENTAL CONSERVATION OFFICER): cdai = 14 Previous ultrasound showed mild synovitis with grade 2 power doppler in the wrist so we added ssz at that time. She is tolerating 2 tabs BID of this. On actemra weekly. Vectra was 42 in 08/19. In 01/19 we repeated u/s and it showed mild synovitis with grade 2 power doppler in the wrist and grade 1 in the 2nd,3rd PIPs Inadequate response to humira and orencia previously. Avoid mtx, leflunomide due to fatty liver. Will increase ssz to 3 tabs BID. Will recheck vectra and labs today. F/u [address] Harrison. Assessment & Plan (10/26/2016 11:55 AM CDT): cdai = 19 Recent ultrasound showed mild synovitis with grade 2 power doppler in the wrist so we added ssz. She is tolerating 2 tabs BID of this. On actemra weekly. Vectra was 42 in 08/19. Inadequate response to humira and orencia previously. Avoid mtx, leflunomide due to fatty liver. Will continue current dose of meds longer but could increase ssz to 3 tabs BID. Will give 100mg triamcinolone IM today due to burden of disease. 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 Schedule u/s before next visit. F/u 3 months. High risk medications (not anticoagulants) long- term use 10/01/2016 Overview (02/15/2017): Neg quantiferon 08/19 Assessment & Plan (12/02/2017 1:13 PM CDT): Will continue to monitor the patient with routine labs. Quant gold negative 10/20. Hepatitis b/c were negative 2004. Assessment & Plan (09/28/2017 12:46 PM CDT): Will continue to monitor the patient with routine labs. Quant gold negative 08/19, will redrawn today. Hepatitis b/c were negative 2004. 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 Overview (07/10/2016): MIXED HYPERLIPIDEMIA Fibrositis 01/31/2014 Overview (07/11/2016): Fibromyalgia Osteopenia 01/02/2014 Overview (07/11/2016): Osteopenia History of tobacco use 11/22/2013 Overview (07/11/2016): History of tobacco abuse Vitamin D deficiency 08/19/2013 Overview (07/09/2016): VITAMIN D DEFICIENCY NOS Irritable bowel syndrome 08/19/2013 Overview (07/10/2016): IRRITABLE BOWEL SYNDROME Drug indicated 08/11/2012 Overview (07/11/2016): LONG-TERM USE MEDS NEC Disorder of joint 07/24/2010 Overview (07/09/2016): ARTHROPATHY NOS-UNSPEC Immunizations Name Administration Dates Next Due Hep A / Hep B 06/22/2011,05/22/2011 Influenza, Split 01/13/2010 Influenza, Trivalent, IM (MDV) 5,01/15/2014,01/15/2014, 3,01/13/2012,01/12/2011,01/22/2009 Pneumococcal Polysaccharide PPV23 03/10/2011 Tdap 08/10/2005 ZOSTER LIVE 03/10/2011 Social History Tobacco Use Types Packs/Day Years Used Date Smoking Tobacco: Former Cigarettes 1 19 2 000 - 2019 Comments:Smoking History Pac ks/day: 1 Packs Alcohol Use Standard Drinks/Week Comments Yes 0 (1 standard drink = 0.6 oz pur e alcohol) Comments Unknown Sex and Gender Information Value Date Recorded Sex Assigned at Not on file Legal Sex Female 12:51 AM ENVIRONMENTAL CONSERVATION OFFICER Gender Identity Not on file Sexual Orientation Not on file Last Filed Vital Signs Vital Sign Reading Time Taken Comments Blood Pressure 110/60 10/25/2023 2:01 PM CDT Pulse 90 10/25/2023 2:01 PM CDT Temperature 36.4 ??C (97.5 ??F) 10/25/2023 2:01 PM CD T Respiratory Rate 16 10/25/2023 2:01 PM CDT Oxygen Saturation 97% 10/25/2023 2:01 PM CDT Inhaled Oxygen Concentration - - Weight 70.4 kg (155 lb 4.8 oz) 10/25/2023 2:01 P M CDT Height 160 cm (5' 3 ) 10/25/2023 2:01 PM CDT Body Mass Index 27.51 10/25/2023 2:01 PM CDT Plan of Treatment Not on file Procedures Procedure Name Priority Date/Time Associated Diagnosis Comments DEXA SCAN Routine 05/09/2015 MAMMOGRAPHY Routine 01/16/2014 COLONOSCOPY Routine 06/22/2013 HEPATITIS C SCREENING Routine 07/30/2009 from Last 3 Months or Most Recently Relevant to Health Maintenance Results * DEXA SCAN (05/09/2015) DEXA Scan Abnormal Comment:Osteopenia Historical Provider MD HEALTH MAINTENANCE Final Result * MAMMOGRAPHY (01/16/2014) Mammogram Normal Historical Provider HEALTH MAINTENANCE Final Result * COLONOSCOPY (06/22/2013) Colonoscopy Abnormal Comment:Polyps Historical Provider HEALTH MAINTENANCE Final Result * HEPATITIS C SCREENING (07/30/2009) HEP C Normal us Historical Provider HEALTH MAINTENANCE Final Result from Last 3 Months or Most Recently Relevant to Health Maintenance Insurance MEDICARE [facility] MEDICARE [employer] [place] [address] MEDICARE [facility] Care Teams Cleaner Assistant Relationship Specialty Start Date End Date Aime Garnica MD [address] [facility] [address] [place] [address] PCP - General 07/03/16 [place] [id number] [facility] [address] [place] [address] Rheumatology 02/15/17
--- OUTSIDE RECORDS SUMMARY | 2024-05-10 13:19 | XMS_ITS | Clinical Summary ---
Author Organization [facility] [address] [facility] Address [address] [place] [address] Phone Care Team Providers Care Shuttle Hand Name Role Phone Aime Garnica MD Primary [...] every day 0 0 4 Active Ca-D3-mag rx-seyh-qgh-man g-bor (CALCIUM 600-D3 PLUS) 600 mg calcium- [...] PM CDT): Likely infectious. Recently traveled to [facility]. Since returning, she has had 4-5 loose, [...] 10/26/2016 Assessment & Plan (03/19/2017 4:45 PM TELEVISION MECHANIC): Went to PT and is feeling worse. [...] wait. Assessment & Plan (02/15/2017 10:18 AM TELEVISION MECHANIC): Went to PT Fatty liver 10/01/2016 Assessment & Plan (07/20/2017 12:57 PM CDT): Elevated ALT. Will continue to monitor. Rheumatoid arthritis of [facility] sites without rheumatoid factor ([facility]/HCC) 10/01/2016 Overview (03/19/2017): Neg quantiferon 08/19 vectra [...] PA-C Assessment & Plan (03/19/2017 11:13 AM TELEVISION MECHANIC): cdai = 11 Last visit we increased [...] liver. 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 Schedule u/s before next [...] labs Assessment & Plan (02/15/2017 10:19 AM TELEVISION MECHANIC): Neg quantiferon 08/19 Multiple-type hyperlipidemia 04/21/2016 Overview [...] PPV23 03/10/2011 Tdap 08/10/2005 ZOSTER LIVE 03/10/2011 Surgical History Surgery Date Site/Laterality Comments OTHER SURGICAL HISTORY torn rotator cuff: surg OTHER SURGICAL HISTORY 2004 C4-C5 Fusion OTHER SURGICAL HISTORY normal variants of vertebrobasilar circ.: angiogram 4/13/07 Medical History Medical History Date Comments Hx Other Medical 2005 neck-c 3/4 Hx Other Medical 2003 torn rotator cu ff Hx Other Medical congenital basi l artery stenosis Fibrositis Fibromyalgia Hx Other Medical RLS Hx Other Medical dyslipidemia Hx Other Medical CTS Gastroesophageal reflux disease GERD Hx Other Medical Headache, migra ine Irritable bowel syndrome Irritab le bowel disease Hx Other Medical ascaris 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 Osteoarthritis Osteoarthritis Medication monitoring encounter Family History Medical History Relation Name Comments Depression Brother Depression; Hypertension Brother Hypertension; Stroke Brother Stroke; Heart disease Father 2 Heart disease; Heart failure Father 2 Congestive hea rt failure; Cause of : Congestive heart failure Heart disease Mother 2 Heart disease; Heart failure Mother 2 Congestive hea rt failure; Cause of : Congestive heart failure Brain cancer Mother's Sister Cancer -brai n; Heart disease Other Family history of Heart disease; Other Other Family history of palindromic RA; Rheum arthritis Sister 2 Rheumatoid a rthritis; Relation Name Status Comments Brother Father 1 Father 2 Mother 1 Mother 2 Mother's Sister Other Sister 1 Alive Sister 2 Social History Tobacco Use Types Packs/Day Years Used Date Smoking Tobacco: Former Cigarettes 2018 Comments:Smoking History Pac ks/day: 1 Packs Alcohol Use Standard Drinks/Week Comments Yes 0 (1 standard drink = 0.6 oz pur e alcohol) Comments Unknown Sex and Gender Information Value Date Recorded Sex Assigned at Not on file Legal Sex Female 12:51 AM TELEVISION MECHANIC Gender Identity Not on file Sexual Orientation Not on file Obstetrics History Last Filed Vital Signs Vital Sign Reading [...] 10/25/2023 2:01 PM CDT Plan of Treatment Health Maintenance Due Date Last Done Comments Fall Risk Assessment 1955 Zoster Vaccine (1 of 2) 05/05/2011 03/10/2011 Pneumococcal vaccine 65+ (2 of 2 - PCV) 03/10/2012 03/10/2011 Breast Cancer Screening-Mammogram 01/16/2015 01/16/2014, 01/16/2014, 09/27/2012 DTaP/Tdap/Td Vaccine (2 - Td or Tdap) 08/11/2015 08/10/2005 Osteoporosis Screening-Bone Density Scan 05/09/2017 05/09/2015 Depression Screening 10/30/2017 10/30/2016 Colon Cancer Screening-Colonoscopy 06/22/2018 06/22/2013 Covid-19 Vaccine (3 - Pfizer risk series) 07/27/2020 06/29/2020, 06/06/2020 Well Visit 65+ 2021 Influenza Vaccine (#1) 2023 , 01/16/2020, 01/24/2019, Additional history exists Hepatitis C Screening Completed 07/30/2009 Colon Cancer Screening-CT Colonography Discontinued 06/22/2013 Colon Cancer Screening-DNA Stool Discontinued 06/23/19 Colon Cancer Screening-FIT Discontinued 06/22/2013 Colon Cancer Screening-Sigmoidoscopy Discontinued 06/22/2013 Procedures Procedure Name Priority Date/Time Associated Diagnosis Comments DEXA SCAN Routine 05/09/2015 MAMMOGRAPHY Routine 01/16/2014 COLONOSCOPY Routine 06/22/2013 HEPATITIS C SCREENING Routine 07/30/2009 from Last 3 Months or Most Recently Relevant to Health Maintenance Results * DEXA SCAN (05/09/2015) DEXA Scan Abnormal Comment:Osteopenia us Historical Provider HEALTH MAINTENANCE Final Result * MAMMOGRAPHY (01/16/2014) Mammogram Normal us Historical Provider HEALTH MAINTENANCE Final Result * COLONOSCOPY (06/22/2013) Colonoscopy Abnormal Comment:Polyps Historical Provider HEALTH MAINTENANCE Final Result * HEPATITIS C SCREENING (07/30/2009) HEP C Normal Historical Provider HEALTH MAINTENANCE Final Result from Last 3 Months or Most Recently Relevant to Health Maintenance Insurance MEDICARE [facility] MEDICARE [facility] MEDICARE [employer] MEDICARE [facility] Address: [address] [address] [place] [address] [facility] Care Teams Shuttle Hand Relationship Specialty Start Date End Date Aime Garnica MD [address] [facility] [address] [place] [address] PCP - General 07/03/16 [place] [address] [facility] [address] [place] [address] Rheumatology 02/15/17
[2024-05-10 13:21] LABS: Hematocrit 39.7 % (37.0-47.0); Hemoglobin 13.5 g/dL (12.0-15.0); Mean Corpuscular Hemoglobin 31.3 pg (26-34); Mean Corpuscular Volume 92.1 fl (80-100); Platelet Count Result 213 k/mm3 (150-375); Red Blood Count 4.31 M/mm3 (4.2-5.4); Red Cell Distribution Width 12.8 % (11.5-14.5); White Blood Count 7.1 K/mm3 (4.5-10.0)
[2024-05-10 13:36] LABS: Band Neutrophils Percent 14 % (0-6); Lymphocytes Absolute Manual 0.42 K/mm3 (1.1-4.5); Monocytes Absolute Manual 0.28 K/mm3 (0.1-0.90); Monocytes Percent Manual 4 % (3-9); Neutrophils Absolute Manual 6.39 K/mm3 (1.7-7.2); Neutrophils Percent Manual 76 % (46-73); Platelet Estimate Adequate (Adequate); Schistocytes None Seen; Total Cells Counted 100
[2024-05-10 13:36] LABS: Alanine Aminotransferase 29 U/L (6-35); Albumin Level 4.3 g/dL (3.5-5.1); Alkaline Phosphatase 81 U/L (38-126); Anion Gap 12 mmol/L (4-12); Aspartate Amino Transferase 25 U/L (14-36); Bilirubin,Total 0.9 mg/dL (0.2-1.3); Blood Urea Nitrogen 18 mg/dL (7-17); Calcium 9.2 mg/dL (8.4-10.2); Carbon Dioxide 22 mmol/L (22-30); Chloride 99 mmol/L (98-107); Estimated CRCL calculation 64 ml/min; Estimated Glomerular Filt Rate > 60; Glucose 113 mg/dL (65-110); Magnesium 1.5 mg/dL (1.6-2.3); Potassium 2.8 mmol/L (3.4-5.0); Sodium 133 mmol/L (137-145)
[2024-05-10 13:40] LABS: NT Pro B Type Natriuretic Pept 135 pg/mL (19.9-100)
[2024-05-10 13:44] LABS: Troponin I < 0.012 ng/mL (0.000-0.034)
[2024-05-10] MEDS: MAGNESIUM SULF 1 GM/D5W 100 ML 1 GM/100 ML BAG IVPB (13:58)
[2024-05-10] MEDS: KCL 20 MEQ/SW 100 ML 100 ML 50 MEQ IVPB (14:10)
--- OUTSIDE RECORDS SUMMARY | 2024-05-10 14:22 | XMS_ITS | Clinical Summary ---
Author Organization [facility] Address [address] [address] Phone Care Team Providers Care Black Studies Professor Name Role Phone Unavailable Primary Care Provider [...] (1 - 1-dose 75+ series) 2031 Insurance [facility] [id number]
--- OUTSIDE RECORDS SUMMARY | 2024-05-10 14:22 | XMS_ITS | Clinical Summary ---
Author Organization [facility] Address [address] [facility] [place] [address] Care Team Providers Care Smt Technician Name Role Phone Unavailable Primary Care Provider Unavailabl e Source Comments [facility],non-owned Affiliates and Associated Physician Practices is amultiple site organization consisting of ambulatory clinics and hospital sitesin [place], [place], [place] and [place]. This disclosure is being madepursuant to the Care Everywhere program and may not contain all information available regarding this patient. Last updated 17.[facility] Social History Tobacco Use Types Packs/Day Years [...] LIPID TESTING 1955 MAMMOGRAM 1955 MEDICARE AWV 12 MONTHS 1955 HEPATITIS C SCREENING 03/12/1974 DTAP/TDAP/TD VACCINES (1 - Tdap) 1975 PNEUMOCOCCAL VACCINE 50+ (1 of 1 - PCV) 2006 ZOSTER VACCINE (1 of 2) 2006 COVID-19 VACCINE (2023-2 5 season) 2023 INFLUENZA VACCINE (#1) 2023 [...] on patient's age [place] [address] Rhina Sher Personal/Family Self [address] [place] [address] [place] [address]
--- OUTSIDE RECORDS SUMMARY | 2024-05-10 14:22 | XMS_ITS | Patient Health Summary ---
Author Organization [facility] Address [address] [place] [address] Care Team Providers Care Patient Insurance Clerk Name Role Phone Unavailable Primary Care Provider Unavailabl e Note from [facility],non-owned Affiliates and Associated Physician Practices is amultiple site organization consisting of ambulatory clinics and hospital sitesin [place], [place], [place] and [place]. This disclosure is being madepursuant to the Care Everywhere program and may not contain all informatio navailable regarding this patient. Last updated 17.[facility] Social History Tobacco Use Types Packs/Day Years [...] Region Laterality Modality Pelvis, Lower Extremity Radiogra [facility] 09/06/2015 1:24 PM CDT Impressions 09/06/2015 [...]
--- OUTSIDE RECORDS SUMMARY | 2024-05-10 14:22 | XMS_ITS | Referral Summary ---
Author Organization [facility] Address [address] [place] [address] Care Team Providers Care Hoop Puncher Name Role Phone Unavailable Primary Care Provider Unavailabl e Source Comments [facility],non-owned Affiliates and Associated Physician Practices is amultiple site organization consisting of ambulatory clinics and hospital sitesin [place], [place], [place] and [place]. This disclosure is being madepursuant to the Care Everywhere program and may not contain all information available regarding this patient. Last updated 17.[email or web address] Social History Tobacco Use Types Packs/Day Years Used Date Smoking Tobacco: Never Assessed Sex and Gender Information Value Date Recorded Sex Assigned at Not on file Gender Identity Not on file Sexual Orientation Not on file Plan [place] [address] Rhina Sher Personal/Family Self [address] [place] [address] [place] [address]
--- OUTSIDE RECORDS SUMMARY | 2024-05-10 14:23 | XMS_ITS | Clinical Summary ---
Author Organization [facility] [address] Address [address] [place] [address] Phone Care Team Providers Care Munitions Handler Name Role Phone Aime Garnica MD Primary [...] every day 0 0 4 Active Ca-D3-mag co-medu-ufq-man g-bor (CALCIUM 600-D3 PLUS) 600 mg calcium- [...] PM CDT): Likely infectious. Recently traveled to [facility]. Since returning, she has had [...] 10/26/2016 Assessment & Plan (03/19/2017 4:45 PM CONSTRUCTION MANAGEMENT INSTRUCTOR): Went to PT and is feeling worse. [...] wait. Assessment & Plan (02/15/2017 10:18 AM CONSTRUCTION MANAGEMENT INSTRUCTOR): Went to PT Fatty liver 10/01/2016 Assessment & Plan (07/20/2017 12:57 PM CDT): Elevated ALT. Will continue to monitor. Rheumatoid arthritis of [facility] sites without rheumatoid factor ([facility]/HCC) 10/01/2016 Overview (03/19/2017): Neg quantiferon 08/19 [...] PA-C Assessment & Plan (03/19/2017 11:13 AM CONSTRUCTION MANAGEMENT INSTRUCTOR): cdai = 11 Last visit we increased [...] liver. 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 Hx Other Medical roundworms '04 Hx Other [...] on file Legal Sex Female 12:51 AM CONSTRUCTION MANAGEMENT INSTRUCTOR Gender Identity Not on file Sexual Orientation Not on file Obstetrics History Last Filed Vital Signs Vital Sign Reading Time Taken Comments Blood Pressure 110/60 10/25/2023 2:01 PM CDT Pulse 90 10/25/2023 2:01 PM CDT Temperature 36.4 C (97.5 F) 10/25/2023 2:01 PM CDT Respiratory Rate 16 10/25/2023 2:01 PM CDT [...] Recently Relevant to Health Maintenance Insurance MEDICARE [employer] [facility] MEDICARE [facility] MEDICARE [employer] MEDICARE [employer] Care Teams Munitions Handler Relationship Specialty Start Date End Date Aime Garnica MD [address] [place] [address] PCP - General 07/03/16 [place] [address] [facility] [address] [place] [address] Rheumatology 02/15/17
--- OUTSIDE RECORDS SUMMARY | 2024-05-10 14:23 | XMS_ITS | Referral Summary ---
Author Organization [facility] [address] [facility] Address [address] [place] [address] Phone Care Team Providers Care Watch Repairer Name Role Phone Aime Garnica MD Primary [...] every day 0 0 4 Active Ca-D3-mag nm-ooby-ugm-man g-bor (CALCIUM 600-D3 PLUS) 600 mg calcium- [...] PM CDT): Likely infectious. Recently traveled to [facility]. Since returning, she has had 4-5 loose, [...] 10/26/2016 Assessment & Plan (03/19/2017 4:45 PM NET TRAINER): Went to PT and is feeling worse. [...] wait. Assessment & Plan (02/15/2017 10:18 AM NET TRAINER): Went to PT Fatty liver 10/01/2016 Assessment & Plan (07/20/2017 12:57 PM CDT): Elevated ALT. Will continue to monitor. Rheumatoid arthritis of [facility] sites without rheumatoid factor ([facility]/HCC) 10/01/2016 Overview (03/19/2017): Neg quantiferon 08/19 [...] PA-C Assessment & Plan (03/19/2017 11:13 AM NET TRAINER): cdai = 11 Last visit we increased [...] liver. 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 Overview [...] on file Legal Sex Female 12:51 AM NET TRAINER Gender Identity Not on file Sexual Orientation [...] (05/09/2015) DEXA Scan Abnormal Comment:Osteopenia Historical Provider HEALTH MAINTENANCE Final Result * MAMMOGRAPHY (01/16/2014) Mammogram Normal Historical Provider HEALTH MAINTENANCE Final Result * COLONOSCOPY (06/22/2013) Colonoscopy Abnormal Comment:Polyps Historical Provider HEALTH MAINTENANCE Final Result * HEPATITIS C SCREENING (07/30/2009) HEP C Normal us Historical Provider HEALTH MAINTENANCE Final Result from Last 3 Months or Most Recently Relevant to Health Maintenance Insurance MEDICARE COMMERCIAL [facility] MEDICARE [employer] MEDICARE [employer] MEDICARE [facility] Care Teams Watch Repairer Relationship Specialty Start Date End Date Aime Garnica MD [address] [place] [address] PCP - General 07/03/16 [place] [address] [facility] [address] [place] [address] Rheumatology 02/15/17
--- NOTE | 2024-05-10 15:19 | P.HP_ITS ---
H&P: HPI History of Present Illness Date/Time: 05/10/24 15:19 Chief Complaint: Cough, Congestion, Fever Narrative: 69 y/o F presents here with cough, congestion, body aches, fever, chills with PMH of hypertension, hyperlipidemia, hypothyroidism, rheumatoid arthritis, and depression. The patient presents here from home for further evaluation of cough, congestion, body aches, chills, and fever. She reports onset of symptoms started yesterday around 3:00 p.m. Initially started with a productive cough, headache, and congestion and has developed shortness of breath. Also reports palpitations, hypoxia noted at home on a home pulse ox (88% on room air). Denies chest pain, nausea, vomiting, or diarrhea. She reports her has also been ill and he did a home COVID test which was negative. She denies history of COPD and asthma. Does have history of smoking for 5-6 years. Initial VS at presentation: 103.2? F, HR 135, RR 17, 139/73, and 92% on 2L NC. ED workup showed: No leukocytosis, no anemia, sodium 133, potassium 2.8, creatinine 0.65 and GFR >60, glucose 113, magnesium 1.5, proBNP 135, initial troponin negative. Patient tested positive for RSV, flu and COVID negative today. CXR showed airspace opacities in the right mid and lower lung zones consistent with pneumonia. Review of Systems Review of Systems: All systems reviewed & are unremarkable except as noted in HPI and below PMFSH Past Medical History Medical History Depression Hyperlipidemia High fecal calprotectin Bulging discs Sciatic nerve injury Panic attack Rotator cuff tear, right Right rotator cuff tendonitis Rheumatoid arthritis involving left knee Rheumatoid arthritis Hypothyroidism Essential hypertension Surgical History Surgical History Status post reverse total arthroplasty of right shoulder History of repair of right rotator cuff (~04/02/20) RCR w/ SAD and Biceps tenotomy History of tubal ligation Hx of fusion of cervical spine C4-5 Family History Family History Father Heart disease Mother Heart disease Sibling Rheumatoid arthritis Social History Social History Smoking packs per day: 0.5 Smoking cigarettes per day: 10.0 Years smoked: 15 Smoking pack-years: 7.50 Smoking status: Former smoker Alcohol intake: unknown Drinks per week: 14 Alcohol use details: weekly Substance use: never Substance use type: does not use Do You Feel Safe in your Home?: Yes Lack of Transportation: No Lack of Food: Never True Current Housing: I Have Housing Concerned About Future Housing: No Difficulty Paying Gas/Electric Bills: No Difficulty Paying for Meds: No Currently Unemployed: No Education: Decline to Answer Difficulty w/ Childcare or Family Care: No Living arrangements: with family Additional living arrangements comments: Spiritual care concerns: No Meds Home Medications and Allergies Home Medications ?Medication ?Instructions ?Recorded ?Confirmed ?Type alprazolam 0.5 mg tablet (Xanax) 0.5 mg PO QID PRN Anxiety 02/27/19 02/25/24 History atorvastatin 40 mg tablet 40 mg PO DAILY 02/27/19 02/25/24 History levothyroxine 75 mcg tablet 75 mcg PO QAM 02/27/19 02/25/24 History (Synthroid) rituximab 10 mg/mL 10 mg IV Q4M 03/25/20 02/25/24 History concentrate,intravenous (Rituxan) leflunomide 10 mg tablet 10 mg PO QAM 10/09/20 02/25/24 History baclofen 10 mg tablet 10 mg PO TID PRN muscle pain #12 03/09/22 02/25/24 Rx tabs duloxetine 60 mg capsule,delayed 60 mg PO DAILY 11/12/23 02/25/24 History release loperamide 2 mg capsule 2 mg PO PRN PRN Diarrhea #30 caps 11/15/23 02/25/24 Rx ondansetron 4 mg disintegrating 4 mg PO Q8H PRN nausea and 11/15/23 02/25/24 Rx tablet vomiting #14 tabs multivitamin g-nxurssmq-qacfudi 1 tablet PO DAILY 11/19/23 02/25/24 History fumarate 18 mg-vitamin K 25 mcg tablet amlodipine 5 mg tablet 5 mg PO DAILY 02/25/24 02/25/24 History budesonide 3 mg 9 mg (3 x 3 mg) PO DAILY #90 ea 02/25/24 02/25/24 Rx capsule,delayed,extended release loperamide 2 mg capsule 2 mg PO DAILY PRN loose stool #30 02/25/24 02/25/24 Rx caps losartan 100 mg tablet 100 mg PO DAILY 02/25/24 02/25/24 History Allergies Allergy/AdvReac Type Severity Reaction Status Date / Time hydroxychloroquine (From Allergy Unknown SWELLING Verified 02/25/24 13:13 Plaquenil) AND HIVES codeine AdvReac Unknown Itching Verified 02/25/24 13:13 Vital Signs Vital Signs - 24 hr 05/10/24 12:30 05/10/24 12:31 05/10/24 12:34 Temperature 103.2 F H Pulse Rate 135 H 150 H Respiratory Rate 17 20 Blood Pressure 139/73 104/56 L Pulse Oximetry 92 91 95 Oxygen Delivery Nasal Cannula Oxygen Flow Rate 2 Exam Const: General: comfortable and no acute distress Other: , female, ill-appearing. Recumbent in stretcher in ED. HENMT: Face/Nose/Sinus: Normal nares present Mouth: Yes moist mucous membranes Other: NC in place Eyes: General: appearance normal, both eyes and all related structures Sclera: sclerae normal Pupils: Equal, round and reactive pupils present EOM: EOMs intact bilaterally Resp: Effort & Inspection: normal respiratory effort Other: Bibasilar crackles. No wheezing. Cardio: Rate: regular rate Rhythm: regular rhythm Other: S1-S2 present without murmur, rub, ectopy GI: Other: Abdomen soft, nondistended, nontender. Normoactive bowel sounds in all quadrants. Skin: General skin exam: normal color and no rashes or lesions noted Wounds: no wounds Neuro: Speech: normal speech Motor exam (neuro): 5/5 motor strength present throughout Sensory Exam: normal sensation Other: A&O x4 Extrem: General: normal to inspection Psych: Mental Status: mental status grossly normal Affect: normal affect Other: Good insight and judgment, pleasant H&P: Results Labs Labs: Short CBC 05/10/24 Range/Units 13:09 WBC 7.1 (4.5-10.0) K/mm3 Hgb 13.5 (12.0-15.0) g/dL Hct 39.7 (37.0-47.0) % Plt Count 213 (150-375) k/mm3 BMP 05/10/24 13:08 Sodium 133 L Potassium 2.8 L* Chloride 99 Carbon Dioxide 22 BUN 18 H Creatinine 0.65 L Glucose 113 H Calcium 9.2 Cardiac Enzymes 05/10/24 Range/Units 13:08 Troponin I < 0.012 (0.000-0.034) ng/mL Liver Function 05/10/24 Range/Units 13:08 Total Bilirubin 0.9 (0.2-1.3) mg/dL AST 25 (14-36) U/L ALT 29 (6-35) U/L Alkaline Phosphatase 81 (38-126) U/L Albumin 4.3 (3.5-5.1) g/dL Assessment and Plan Assessment and plan (1) Sepsis: Qualifiers: Acute respiratory failure type: with hypoxia Sepsis acute organ dysfunction status: with acute organ dysfunction Sepsis type: sepsis due to unspecified organism Severe sepsis acute organ dysfunction type: acute respiratory failure Severe sepsis shock status: without septic shock Qualified Code(s): A41.9 - Sepsis, unspecified organism; R65.20 - Severe sepsis without septic shock; J96.01 - Acute respiratory failure with hypoxia Code(s): A41.9 - Sepsis, unspecified organism Status: Acute Assessment and Plan: - meets SIRS criteria: HR, temp. +hypoxia, -hypotension. - lactic acid pending - 30 mL/kg = 2L, given 3L bolus in ED - suspected source: PNA - started on ceftriaxone and azithromycin on 05/10 - blood cultures drawn on 05/10, follow - UA pending - monitor hemodynamic stability and O2 saturation (2) Acute hypoxic respiratory failure: Code(s): J96.01 - Acute respiratory failure with hypoxia Status: Acute Assessment and Plan: - CXR: Airspace opacities in right mid and lower lung zones, consistent with pneumonia. - EKG, initial: Sinus tachycardia, rate 133, left axis deviation, incomplete right bundle branch block, cannot rule out septal infarct age indeterminate, borderline ST-T-wave abnormality high lateral/high lateral leads. - CXR concerning for pneumonia, see below - continue supplemental O2, maintain O2 saturation greater than 92%, and wean as tolerated (3) Pneumonia: Qualifiers: Laterality: bilateral Lung location: unspecified part of lung Pneumonia type: due to unspecified organism Qualified Code(s): J18.9 - Pneumonia, unspecified organism Code(s): J18.9 - Pneumonia, unspecified organism Status: Acute Assessment and Plan: - CXR showing multifocal pneumonia, see above - risk factors and complicating factors: RSV - started on CAP tx: ceftriaxone and azithromycin - MRSA PCR and sputum culture - supportive care - continue supplemental O2, wean as tolerated (4) RSV infection: Qualifiers: RSV infection type: pneumonia Qualified Code(s): J12.1 - Respiratory syncytial virus pneumonia Code(s): B33.8 - Other specified viral diseases Status: Acute Assessment and Plan: - tested positive for RSV on 05/10 - supportive care: Tylenol p.r.n. Mucinex loren DuoNeb p.r.n. Tessalon Perles p.r.n. Lozenge p.r.n. - monitor WBC/CBC (5) Essential hypertension: Code(s): I10 - Essential (primary) hypertension Status: Acute Assessment and Plan: - chronic, current range: 104/56 - 139/73 - continue home medications - monitor Plan Diet: Heart healthy GI Prophylaxis: Not currently indicated DVT Prophylaxis: Lovenox subQ Lines: Peripheral Code Status: modified code, meds only Quality VTE Prophylaxis VTE prophylaxis: pharmacologic ordered Hospitalist [facility] Advance Care Plan I have confirmed that the patient's Advanced Care Plan is present, code status is documented, or surrogate decision maker is listed in patient medical record.: Yes Medication Reconciliation I have utilized all available resources to obtain, update and review the patients current medications (includes all prescriptions, OTC, herbals, cannabis, and nutritional supplements).: Yes
[2024-05-10] MEDS: AZITHROMYCIN 500 MG/NS 250 ML 500 MG/250 ML BAG 250 MG IVPB (16:20)
[2024-05-10 17:18] LABS: MRSA (PCR) NOT DETECTED (NOT DETECTE)
[2024-05-10] MEDS: SODIUM CHLORIDE 0.9% IV 1,000 ML 125 ML IV CONT (17:29)
[2024-05-10 17:52] LABS: Add Urine Microscopic? NO; Appearance Urine Clear (Clear); Bilirubin Urine Negative (Negative); Blood Urine Negative (Negative); Color Urine Yellow (Yellow); Glucose Urine UA Negative (Negative); Ketones Urine Negative (Negative); Leukocyte Esterase Ur Negative LEU/UL (Negative); Nitrate Urine Negative (Negative); Protein Urine Negative (Negative); Specific Grav Ur 1.007 (1.001-1.035); Urobilinogen Urine 0.2 mg/dL (<2.0); pH Urine 5.5 (5.0-9.0)
[2024-05-10 19:14] LABS: Anion Gap 7 mmol/L (4-12); Blood Urea Nitrogen 14 mg/dL (7-17); Calcium 7.5 mg/dL (8.4-10.2); Carbon Dioxide 22 mmol/L (22-30); Chloride 106 mmol/L (98-107); Estimated CRCL calculation 56 ml/min; Estimated Glomerular Filt Rate > 60; Glucose 103 mg/dL (65-110); Lactic Acid Reflex 1.2 mmol/L (0.7-2.0); Magnesium 1.7 mg/dL (1.6-2.3); Potassium 3.1 mmol/L (3.4-5.0); Sodium 135 mmol/L (137-145)
--- NOTE | 2024-05-10 21:15 | ADMGEN ---
This patient, Rhina Sher, was admitted to IMU Room 203-01. Patient/family oriented to hospital policies and general routines including ID bracelet, bed and alarms, visiting hours, pain management, procedures, bathroom and other care routines, personal items, smoking policy, room service/diet, and visiting hours. Information on how to activate the Rapid Response Team has been discussed. Patient/Family are encouraged to report perceived risks to care and to ask questions if they do not understand what they are told or what they should do.
[2024-05-10] MEDS: guaiFENesin 12 HR 600 MG TABCR PO (22:02)
[2024-05-10] MEDS: MELATONIN 3 MG TABLET PO (22:36)
[2024-05-10] MEDS: ACETAMINOPHEN 325 MG TABLET 650 MG PO (22:37)
[2024-05-10] MEDS: ALPRAZolam (*CRX) 0.5 MG TABLET PO (22:37)
[2024-05-11] VITALS (12 sets, daily range): BP systolic 99–123; BP diastolic 44–67; PULSE 68–90; RESP 18–22; TEMP 36.5–37.1; O2SAT 94–97
[2024-05-11 05:08] LABS: Basophils Absolute Auto 0.1 K/mm3 (0.0-0.1); Basophils Percent Auto 0.5 % (0.2-1.2); Eosinophils Absolute Auto 0.1 K/mm3 (0-0.3); Eosinophils Percent Auto 0.5 % (0-4.4); Hematocrit 32.2 % (37.0-47.0); Hemoglobin 10.5 g/dL (12.0-15.0); Immature Granulocyte Absolute 0.13 K/mm3 (0.00-0.031); Immature Granulocyte Percent A 0.9 % (0-0.5); Lymphocytes Percent Auto 6.7 % (18.3-44.2); Mean Corpuscular HGB Conc 32.6 g/dl (32-36); Mean Corpuscular Hemoglobin 31.6 pg (26-34); Mean Platelet Volume 9.7 fl (7.4-10.4); Monocytes Percent Auto 6.4 % (2.6-8.5); Neutrophils Absolute Auto 12.7 K/mm3 (1.3-6.7); Platelet Count Result 172 k/mm3 (150-375); Red Blood Count 3.32 M/mm3 (4.2-5.4); Red Cell Distribution Width 13.3 % (11.5-14.5); White Blood Count 14.9 K/mm3 (4.5-10.0)
[2024-05-11 05:23] LABS: Alanine Aminotransferase 19 U/L (6-35); Albumin Level 2.7 g/dL (3.5-5.1); Alkaline Phosphatase 47 U/L (38-126); Anion Gap 3 mmol/L (4-12); Aspartate Amino Transferase 19 U/L (14-36); Bilirubin,Total 0.7 mg/dL (0.2-1.3); Blood Urea Nitrogen 12 mg/dL (7-17); Calcium 7.7 mg/dL (8.4-10.2); Carbon Dioxide 25 mmol/L (22-30); Chloride 112 mmol/L (98-107); Estimated CRCL calculation 60 ml/min; Estimated Glomerular Filt Rate > 60; Glucose 78 mg/dL (65-110); Potassium 3.5 mmol/L (3.4-5.0); Sodium 140 mmol/L (137-145)
[2024-05-11] MEDS: LEVOTHYROXINE SODIUM 75 MCG TABLET PO (06:43)
[2024-05-11] MEDS: SODIUM CHLORIDE 0.9% IV 1,000 ML 125 ML IV CONT (06:43)
[2024-05-11] MEDS: ACETAMINOPHEN 325 MG TABLET 650 MG PO (06:43)
[2024-05-11] MEDS: ATORVASTATIN 40 MG TABLET PO (09:08)
[2024-05-11] MEDS: THERAPEUTIC MULTIVITAMINS/MINERALS TAB (*BKC) 1 TABLET PO (09:08)
[2024-05-11] MEDS: guaiFENesin 12 HR 600 MG TABCR PO ×2 (09:08→20:22)
[2024-05-11] MEDS: ENOXAPARIN 40 MG/0.4 ML SYRINGE SUB-Q (09:09)
[2024-05-11] MEDS: DULoxetine HCL 60 MG CAPSULE.DR PO (09:09)
[2024-05-11] MEDS: LEFLUNOMIDE 10 MG TABLET PO (09:09)
[2024-05-11] MEDS: ALPRAZolam (*CRX) 0.5 MG TABLET PO ×2 (09:12→20:23)
--- NOTE | 2024-05-11 09:37 | P.PNIM_ITS ---
Progress Note: A&P Assessment and Plan (1) Sepsis: Qualifiers: Acute respiratory failure type: with hypoxia Sepsis acute organ dysfunction status: with acute organ dysfunction Sepsis type: sepsis due to unspecified organism Severe sepsis acute organ dysfunction type: acute respiratory failure Severe sepsis shock status: without septic shock Qualified Code(s): A41.9 - Sepsis, unspecified organism; R65.20 - Severe sepsis without septic shock; J96.01 - Acute respiratory failure with hypoxia Code(s): A41.9 - Sepsis, unspecified organism Status: Acute Assessment and Plan: * Meeting sepsis criteria with tachycardia, temp of 103?, hypotension, pneumonia, hypoxia * Lactic acid was normal 1.2 * Patient was given 3 L bolus in ED with improvement in heart rate and blood pressure * Chest x-ray suggesting pneumonia and right mid and lower lung zones * Blood cultures were obtained and pending * Continue Rocephin and azithromycin * UA was negative for bacteria (2) Acute hypoxic respiratory failure: Code(s): J96.01 - Acute respiratory failure with hypoxia Status: Acute Assessment and Plan: * Chest x-ray shown Airspace opacities in right mid and lower lung zones, consistent with pneumonia. * Continue Duonebs * Pep therapy and incentive spirometry ordered * Contiue IV antibiotics for pneumonia (3) Pneumonia: Qualifiers: Laterality: bilateral Lung location: unspecified part of lung Pneumonia type: due to unspecified organism Qualified Code(s): J18.9 - Pneumonia, unspecified organism Code(s): J18.9 - Pneumonia, unspecified organism Status: Acute Assessment and Plan: * Chest x-ray suggesting pneumonia * Respiratory panel positive for RSV * Continue Rocephin and azithromycin * MRSA negative * Sputum culture obtained and pending * Blood cultures pending (4) RSV infection: Qualifiers: RSV infection type: pneumonia Qualified Code(s): J12.1 - Respiratory syncytial virus pneumonia Code(s): B33.8 - Other specified viral diseases Status: Acute Assessment and Plan: * Respiratory panel positive for RSV * Continue supportive care (5) Essential hypertension: Code(s): I10 - Essential (primary) hypertension Status: Acute Assessment and Plan: * Blood pressure ranging 108/51 123/63 * Continue amlodipine (6) Diarrhea: Qualifiers: Diarrhea type: unspecified type Qualified Code(s): R19.7 - Diarrhea, unspecified Code(s): R19.7 - Diarrhea, unspecified Status: Acute Assessment and Plan: * Continue Imodium and budesonide (7) Electrolyte abnormality: Code(s): E87.8 - Other disorders of electrolyte and fluid balance, not elsewhere classified Status: Acute Assessment and Plan: * Potassium initially 2.8 and was replaced in the ED * Potassium today 3.5 * Magnesium 1.5, patient was given 1 g magnesium while in the ED * Magnesium Currently 1.7 * Continue to trend Time Spent With Patient Time with patient: Greater than 35 minutes Subjective Date/time seen: 05/11/24 09:37 Interval history: Interval history: This is a 69 year old female with a significant past medical history of hypertension, hyperlipidemia, hypotension, rheumatoid arthritis and depression presented to the hospital with cough, congestion and fever. Work up in the hospital included a chest x-ray which showed airspace opacities in the right mid and lower lung zones consistent with pneumonia. Initial labs showed a normal white blood cell count of 7.1, band neutrophils 14, sodium 133, potassium 2.8, magnesium 1.5, troponin was negative, proBNP 135. UA was obtained and was negative. MRSA was obtained and negative. Respiratory panel was positive for RSV. Blood cultures were obtained and pending. EKG showed sinus tachycardia with left axis deviation and right bundle branch block with a rate of 133, QTC 454. Patient was given 4 L of normal saline, 20 mEq of potassium, 1 g of Mag, Rocephin, azithromycin while in the ED. Subjective: Patient reports headache, sore throat, post nasal drip, diarrhea, and productive cough. Labs and imaging reviewed. Review of Systems Review of Systems: All systems reviewed & are unremarkable except as noted in HPI and below Exam Narrative: General: In no acute distress, well nourished Head: atraumatic, no encephalopathy Eyes: PERRLA, sclera clear ENT: moist mucous membranes, nasal passages clear Neck: supple, no JVD, no adenopathy, trachea midline Cardiac: Normal S1 and S2. RRR, No murmur, gallops or friction rubs, peripheral pulses intact. Respiratory: Bilateral with wheezing and rhonchi throughout all lung cespedes, no other adventitious lung sounds, no use of accessory muscles or acute respiratory distress seen, currently on room air Gastrointestinal: soft, non-distended, non-tender, normoactive bowel sounds. Reports diarrhea : voiding without difficulty. Extremities: moves all extremities well, no edema Skin: clean, dry, intact. No wounds or lesions. Neuro: Alert and oriented x4, cranial nerves intact, no neuro deficits. Psych: normal mood, normal affect, interactive Objective Data Vital Signs Vital Signs: Vital Signs - 24 hr 05/10/24 12:30 05/10/24 12:31 05/10/24 12:34 Temperature 103.2 F H Pulse Rate 135 H 150 H Respiratory Rate 17 20 Blood Pressure 139/73 104/56 L Pulse Oximetry 92 91 95 Oxygen Delivery Nasal Cannula Oxygen Flow Rate 2 05/10/24 12:46 05/10/24 13:00 05/10/24 13:16 Temperature Pulse Rate 135 H 113 H Respiratory Rate 10 L 16 Blood Pressure 123/70 113/54 L Pulse Oximetry 93 98 100 Oxygen Delivery Nasal Cannula Oxygen Flow Rate 2 05/10/24 13:31 05/10/24 13:46 05/10/24 14:10 Temperature 99.2 F Pulse Rate 112 H 108 H 111 H Respiratory Rate 11 L 10 L 9 L Blood Pressure 117/58 L 94/60 L 91/53 L Pulse Oximetry 99 100 93 Oxygen Delivery Oxygen Flow Rate 05/10/24 14:16 05/10/24 14:31 05/10/24 15:19 Temperature Pulse Rate 115 H 110 H 109 H Respiratory Rate 10 L 11 L 9 L Blood Pressure 80/51 L 100/56 L 91/51 L Pulse Oximetry 94 95 96 Oxygen Delivery Oxygen Flow Rate 05/10/24 15:31 05/10/24 16:01 05/10/24 16:16 Temperature Pulse Rate 109 H 107 H 104 H Respiratory Rate 13 7 L 13 Blood Pressure 103/55 L 95/53 L 97/49 L Pulse Oximetry 95 97 96 Oxygen Delivery Oxygen Flow Rate 05/10/24 17:19 05/10/24 17:42 05/10/24 18:30 Temperature 99 F Pulse Rate 103 H 104 H 97 Respiratory Rate 22 H 15 16 Blood Pressure 81/57 L 92/53 L 91/66 L Pulse Oximetry 95 95 97 Oxygen Delivery Oxygen Flow Rate 05/10/24 19:53 05/10/24 22:00 05/10/24 23:13 Temperature Pulse Rate 100 100 100 Respiratory Rate 19 19 Blood Pressure 105/59 L Pulse Oximetry 98 98 Oxygen Delivery Nasal Cannula Oxygen Flow Rate 2 05/10/24 23:13 05/10/24 23:31 05/11/24 03:54 Temperature 99.4 F 98.4 F Pulse Rate 100 93 86 Respiratory Rate 19 19 Blood Pressure 113/71 99/44 L Pulse Oximetry 99 95 Oxygen Delivery Oxygen Flow Rate 05/11/24 04:00 05/11/24 04:00 05/11/24 05:52 Temperature Pulse Rate 82 82 87 Respiratory Rate 19 Blood Pressure Pulse Oximetry 95 Oxygen Delivery Nasal Cannula Oxygen Flow Rate 1 05/11/24 05:52 Temperature Pulse Rate 87 Respiratory Rate 20 Blood Pressure 106/57 L Pulse Oximetry 95 Oxygen Delivery Oxygen Flow Rate Intake/Output Intake/Output: Intake & Output 05/08/24 05/09/24 05/10/24 05/11/24 23:59 23:59 23:59 23:59 Intake Total 4500 1150 Output Total 1000 Balance 4500 150 Meds/Results Medications: Active Medications Generic Name Dose Route Start Last Admin Trade Name Freq PRN Reason Stop Dose Admin Acetaminophen 650 mg 05/10/24 15:23 05/11/24 06:43 Acetaminophen 325 Mg Tablet PO 650 mg Q4H PRN Administration Mild Pain (1-3) or Fever Hydrocodone Bitart/Acetaminophen 1 tab 05/10/24 22:17 Hydrocodone/Acetaminophen (*Crx) 5-325 Mg Tablet PO Q8H PRN Pain Rated 4-6 Albuterol/Ipratropium 3 ml 05/10/24 15:29 Ipratropium 0.5 Mg/Albuterol Sulfate 2.5 Mg Ampul.Neb 3 Ml INHALATION Q6HRT PRN Shortness Of Breath Or Wheezing Alprazolam 0.5 mg 05/10/24 22:17 05/11/24 09:12 Alprazolam (*Crx) 0.5 Mg Tablet PO 0.5 mg QID PRN Administration Anxiety Amlodipine Besylate 5 mg 05/11/24 09:00 Amlodipine Besylate 5 Mg Tablet PO DAILY CONCHITA Atorvastatin Calcium 40 mg 05/11/24 09:00 05/11/24 09:08 Atorvastatin 40 Mg Tablet PO 40 mg DAILY CONCHITA Administration Baclofen 10 mg 05/10/24 22:17 Baclofen 10 Mg Tablet PO TID PRN muscle pain Benzocaine 1 lozenge 05/10/24 15:29 Benzocaine/Menthol (*Bkc) 18 Ea Lozenge PO PRN PRN Sore Throat Benzonatate 100 mg 05/10/24 15:29 Benzonatate 100 Mg Capsule PO TID PRN Cough Diphenhydramine HCl 25 mg 05/10/24 22:17 Diphenhydramine Hcl Cap 25 Mg Capsule PO Q8H PRN itching Duloxetine HCl 60 mg 05/11/24 09:00 05/11/24 09:09 Duloxetine Hcl 60 Mg Capsule.Dr PO 60 mg DAILY CONCHITA Administration Enoxaparin Sodium 40 mg 05/11/24 09:00 05/11/24 09:09 Enoxaparin 40 Mg/0.4 Ml Syringe SUB-Q 40 mg DAILY CONCHITA Administration Guaifenesin 600 mg 05/10/24 21:00 05/11/24 09:08 Guaifenesin 12 Hr 600 Mg Tabcr PO 600 mg Q12HR CONCHITA Administration Ceftriaxone Sodium 1 gm in 50 mls @ 100 mls/hr 05/11/24 16:00 Rocephin 1 Gm/Ns 50 Ml IVPB Q24H CONCHITA Azithromycin 500 mg in 250 mls @ 250 mls/hr 05/11/24 17:00 Zithromax IVPB Q24H CONCHITA Sodium Chloride 1,000 mls @ 125 mls/hr 05/10/24 15:25 05/11/24 06:43 Normal Saline Iv IV CONT 125 mls/hr .Q8H CONCHITA Administration Leflunomide 10 mg 05/11/24 09:00 05/11/24 09:09 Leflunomide 10 Mg Tablet PO 10 mg QAM CONCHITA Administration Levothyroxine Sodium 75 mcg 05/11/24 06:30 05/11/24 06:43 Levothyroxine Sodium 75 Mcg Tablet PO 75 mcg DAILY@0630 CONCHITA Administration Loperamide HCl 2 mg 05/10/24 22:17 Loperamide Hcl 2 Mg Capsule PO DAILY PRN loose stool Losartan Potassium 50 mg 05/11/24 09:00 Losartan Potassium 50 Mg Tablet PO DAILY CONCHITA Melatonin 3 mg 05/10/24 22:25 05/10/24 22:36 Melatonin 3 Mg Tablet PO 3 mg HS CONCHITA Administration Miscellaneous Information 0 each 05/10/24 22:30 Rituximab- Nonformulary Please Obtain A Home Supply Or Hold While Inpatient. XX 03/07/25 22:29 CLARIFY [facility] Multivitamins/Calcium 1 tablet 05/11/24 09:00 05/11/24 09:08 Therapeutic Multivitamins/Minerals Tab (*Bkc) PO 1 tablet DAILY [facility] Administration Non-Formulary Medication 10 mg 05/10/24 22:30 Rituximab [Rituxan] IVPB 06/09/24 22:29 Q4M [facility] Radiology Results: ITS Impressions Chest X-Ray 05/10/24 14:49 IMPRESSION: 1. Airspace opacities in right mid and lower lung zones, consistent with pneumonia. Labs Labs: Laboratory Results - last 24 hr 05/10/24 05/10/24 05/10/24 12:16 13:08 13:09 WBC 7.1 RBC 4.31 Hgb 13.5 Hct 39.7 MCV 92.1 MCH 31.3 MCHC 34.0 RDW 12.8 Plt Count 213 MPV 10.0 Immature Gran % (Auto) Not Reportable Neut % (Auto) Not Reportable Lymph % (Auto) Not Reportable [place] % (Auto) Not Reportable Eos % (Auto) Not Reportable Baso % (Auto) Not Reportable Lymph # (Auto) Not Reportable [place] # (Auto) Not Reportable Eos # (Auto) Not Reportable Baso # (Auto) Not Reportable Abs Immat Gran (auto) Not Reportable Absolute Neuts (auto) Not Reportable Absolute Nucleated RBC Not Reportable Total Counted 100 Neutrophils % (Manual) 76 H Band Neutrophils % 14 H Lymphocytes % (Manual) 6.0 L Monocytes % (Manual) 4 Nucleated RBC % Not Reportable Abs Neuts (Manual) 6.39 Abs Lymphs (Manual) 0.42 L Abs Monocytes (Manual) 0.28 Platelet Estimate Adequate Schistocytes None seen Sodium 133 L Potassium 2.8 L* Chloride 99 Carbon Dioxide 22 Anion Gap 12 BUN 18 H Creatinine 0.65 L Estim Creat Clear Calc 64 Estimated GFR > 60 Glucose 113 H Lactic Acid Calcium 9.2 Magnesium 1.5 L Total Bilirubin 0.9 AST 25 ALT 29 Alkaline Phosphatase 81 Troponin I < 0.012 NT-Pro-B Natriuret Pep 135 H Total Protein 7.0 Albumin 4.3 Urine Color Urine Appearance Urine pH Ur Specific [place] Urine Protein Urine Glucose (UA) Urine Ketones Ur Blood (Man) Urine Nitrate Urine Bilirubin Urine Urobilinogen Leukocyte Esterase Rfl Nasal MRSA (PCR) Influenza A (RT-PCR) Negative Influenza B (RT-PCR) Negative RSV (RT-PCR) Positive A SARS-CoV-2 RNA (RT-PCR) Negative 05/10/24 05/10/24 05/10/24 16:05 17:47 18:48 WBC RBC Hgb Hct MCV MCH MCHC RDW Plt Count MPV Immature Gran % (Auto) Neut % (Auto) Lymph % (Auto) [place] % (Auto) Eos % (Auto) Baso % (Auto) Lymph # (Auto) [place] # (Auto) Eos # (Auto) Baso # (Auto) Abs Immat Gran (auto) Absolute Neuts (auto) Absolute Nucleated RBC Total Counted Neutrophils % (Manual) Band Neutrophils % Lymphocytes % (Manual) Monocytes % (Manual) Nucleated RBC % Abs Neuts (Manual) Abs Lymphs (Manual) Abs Monocytes (Manual) Platelet Estimate Schistocytes Sodium 135 L Potassium 3.1 L Chloride 106 Carbon Dioxide 22 Anion Gap 7 BUN 14 Creatinine 0.75 Estim Creat Clear Calc 56 Estimated GFR > 60 Glucose 103 Lactic Acid 1.2 Calcium 7.5 L Magnesium Cancelled Total Bilirubin AST ALT Alkaline Phosphatase Troponin I NT-Pro-B Natriuret Pep Total Protein Albumin Urine Color Yellow Urine Appearance Clear Urine pH 5.5 Ur Specific [place] 1.007 Urine Protein Negative Urine Glucose (UA) Negative Urine Ketones Negative Ur Blood (Man) Negative Urine Nitrate Negative Urine Bilirubin Negative Urine Urobilinogen 0.2 Leukocyte Esterase Rfl Negative Nasal MRSA (PCR) Not detected Influenza A (RT-PCR) Influenza B (RT-PCR) RSV (RT-PCR) SARS-CoV-2 RNA (RT-PCR) 05/10/24 05/11/24 18:48 04:40 WBC 14.9 H RBC 3.32 L Hgb 10.5 L D Hct 32.2 L MCV 97.0 D MCH 31.6 MCHC 32.6 RDW 13.3 Plt Count 172 MPV 9.7 Immature Gran % (Auto) 0.9 H Neut % (Auto) 85.0 H Lymph % (Auto) 6.7 L [place] % (Auto) 6.4 Eos % (Auto) 0.5 Baso % (Auto) 0.5 Lymph # (Auto) 1.00 [place] # (Auto) 1.0 H Eos # (Auto) 0.1 Baso # (Auto) 0.1 Abs Immat Gran (auto) 0.13 H Absolute Neuts (auto) 12.7 H Absolute Nucleated RBC 0.000 Total Counted Neutrophils % (Manual) Band Neutrophils % Lymphocytes % (Manual) Monocytes % (Manual) Nucleated RBC % 0.0 Abs Neuts (Manual) Abs Lymphs (Manual) Abs Monocytes (Manual) Platelet Estimate Schistocytes Sodium 140 Potassium 3.5 Chloride 112 H Carbon Dioxide 25 Anion Gap 3 L BUN 12 Creatinine 0.70 Estim Creat Clear Calc 60 Estimated GFR > 60 Glucose 78 Lactic Acid Calcium 7.7 L Magnesium 1.7 Total Bilirubin 0.7 AST 19 ALT 19 Alkaline Phosphatase 47 Troponin I NT-Pro-B Natriuret Pep Total Protein 5.0 L Albumin 2.7 L Urine Color Urine Appearance Urine pH Ur Specific [place] Urine Protein Urine Glucose (UA) Urine Ketones Ur Blood (Man) Urine Nitrate Urine Bilirubin Urine Urobilinogen Leukocyte Esterase Rfl Nasal MRSA (PCR) Influenza A (RT-PCR) Influenza B (RT-PCR) RSV (RT-PCR) SARS-CoV-2 RNA (RT-PCR) Quality VTE Prophylaxis VTE prophylaxis: pharmacologic ordered
[2024-05-11] MEDS: LOPERAMIDE HCL 2 MG CAPSULE PO ×5 (12:32→19:30)
[2024-05-11] MEDS: BUDESONIDE 3 MG CAP.SR.24H PO (13:49)
[2024-05-11] MEDS: AZITHROMYCIN 500 MG/NS 250 ML 500 MG/250 ML BAG 250 MG IVPB (16:25)
[2024-05-11] MEDS: MELATONIN 3 MG TABLET PO (20:22)
[2024-05-11] MEDS: BENZONATATE 100 MG CAPSULE PO (20:46)
[2024-05-11] MEDS: HYDROcodone/acetaminophen (*CRX) 5-325 MG TABLET 1 TAB PO (20:46)
[2024-05-11] MEDS: diphenhydrAMINE HCl CAP 25 MG CAPSULE PO (20:48)
[2024-05-11 20:49] LABS: Glucose Point of Care 122 mg/dl (65-105)
--- NOTE | 2024-05-11 21:00 | PC.NURSE ---
pt transfered to 329
[2024-05-12] MEDS: ACETAMINOPHEN 325 MG TABLET 650 MG PO (04:04)
[2024-05-12] MEDS: BENZONATATE 100 MG CAPSULE PO (04:04)
[2024-05-12] MEDS: LEVOTHYROXINE SODIUM 75 MCG TABLET PO (05:20)
[2024-05-12 08:00] VITALS: BP 131/70; PULSE 77; RESP 20; TEMP 36.4; O2SAT 97
[2024-05-12] MEDS: HYDROcodone/acetaminophen (*CRX) 5-325 MG TABLET 1 TAB PO (09:28)
[2024-05-12] MEDS: diphenhydrAMINE HCl CAP 25 MG CAPSULE PO (09:28)
[2024-05-12] MEDS: ATORVASTATIN 40 MG TABLET PO (09:29)
[2024-05-12] MEDS: ALPRAZolam (*CRX) 0.5 MG TABLET PO (09:29)
[2024-05-12] MEDS: amLODIPine BESYLATE 5 MG TABLET PO (09:29)
[2024-05-12] MEDS: guaiFENesin 12 HR 600 MG TABCR PO (09:29)
[2024-05-12] MEDS: DULoxetine HCL 60 MG CAPSULE.DR PO (09:29)
[2024-05-12] MEDS: THERAPEUTIC MULTIVITAMINS/MINERALS TAB (*BKC) 1 TABLET PO (09:29)
[2024-05-12] MEDS: LOSARTAN POTASSIUM 50 MG TABLET PO (09:30)
[2024-05-12] MEDS: ENOXAPARIN 40 MG/0.4 ML SYRINGE SUB-Q (09:30)
[2024-05-12 11:39] LABS: Basophils Absolute Auto 0.1 K/mm3 (0.0-0.1); Basophils Percent Auto 0.4 % (0.2-1.2); Eosinophils Absolute Auto 0.3 K/mm3 (0-0.3); Eosinophils Percent Auto 2.1 % (0-4.4); Hemoglobin 11.2 g/dL (12.0-15.0); Immature Granulocyte Absolute 0.06 K/mm3 (0.00-0.031); Immature Granulocyte Percent A 0.5 % (0-0.5); Immature Platelet Fraction Pct 3.4 % (0.9-11.2); Lymphocytes Absolute Auto 0.81 K/mm3 (0.9-3.2); Lymphocytes Percent Auto 6.4 % (18.3-44.2); Mean Corpuscular Hemoglobin 30.9 pg (26-34); Mean Corpuscular Volume 96.7 fl (80-100); Monocytes Absolute Auto 0.6 K/mm3 (0.1-0.6); Monocytes Percent Auto 4.7 % (2.6-8.5); Neutrophils Absolute Auto 10.9 K/mm3 (1.3-6.7); Neutrophils Percent Auto 85.9 % (45.5-73.1); Platelet Count Result 185 k/mm3 (150-375); Red Blood Count 3.62 M/mm3 (4.2-5.4); Red Cell Distribution Width 13.1 % (11.5-14.5); White Blood Count 12.7 K/mm3 (4.5-10.0)
[2024-05-12 11:51] LABS: Alanine Aminotransferase 20 U/L (6-35); Albumin Level 3.4 g/dL (3.5-5.1); Alkaline Phosphatase 64 U/L (38-126); Anion Gap 10 mmol/L (4-12); Aspartate Amino Transferase 23 U/L (14-36); Bilirubin,Total 0.7 mg/dL (0.2-1.3); Blood Urea Nitrogen 7 mg/dL (7-17); Carbon Dioxide 22 mmol/L (22-30); Chloride 108 mmol/L (98-107); Estimated CRCL calculation 82 ml/min; Estimated Glomerular Filt Rate > 60; Glucose 113 mg/dL (65-110); Potassium 3.4 mmol/L (3.4-5.0); Sodium 140 mmol/L (137-145)
[2024-05-12 12:37] LABS: Anisocytosis 1+; Burr Cells 1+; Platelet Estimate Adequate (Adequate); Schistocytes None Seen
--- NOTE | 2024-05-12 13:04 | P.DS_ITS ---
DS: Admitting Diagnosis Discharge Date 05/12/24 DS: Discharge Diagnosis Discharge Diagnosis (1) Sepsis: Qualifiers: Sepsis type: sepsis due to unspecified organism Sepsis acute organ dysfunction status: with acute organ dysfunction Severe sepsis acute organ dysfunction type: acute respiratory failure Acute respiratory failure type: with hypoxia Severe sepsis shock status: without septic shock Qualified Code(s): A41.9 - Sepsis, unspecified organism; R65.20 - Severe sepsis without septic shock; J96.01 - Acute respiratory failure with hypoxia Code(s): A41.9 - Sepsis, unspecified organism Status: Acute (2) Acute hypoxic respiratory failure: Code(s): J96.01 - Acute respiratory failure with hypoxia Status: Acute (3) Pneumonia: Qualifiers: Laterality: bilateral Lung location: unspecified part of lung Pneumonia type: due to unspecified organism Qualified Code(s): J18.9 - Pneumonia, unspecified organism Code(s): J18.9 - Pneumonia, unspecified organism Status: Acute (4) RSV infection: Qualifiers: RSV infection type: pneumonia Qualified Code(s): J12.1 - Respiratory syncytial virus pneumonia Code(s): B33.8 - Other specified viral diseases Status: Acute (5) Essential hypertension: Code(s): I10 - Essential (primary) hypertension Status: Acute (6) Diarrhea: Qualifiers: Diarrhea type: unspecified type Qualified Code(s): R19.7 - Diarrhea, unspecified Code(s): R19.7 - Diarrhea, unspecified Status: Acute (7) Electrolyte abnormality: Code(s): E87.8 - Other disorders of electrolyte and fluid balance, not elsewhere classified Status: Acute DS: Summary Time Spent with Patient Time attestation: Total time spent providing and/or coordinating discharge services: Exam Narrative: General: In no acute distress, well nourished Head: atraumatic, no encephalopathy Eyes: PERRLA, sclera clear ENT: moist mucous membranes, nasal passages clear Neck: supple, no JVD, no adenopathy, trachea midline Cardiac: Normal S1 and S2. RRR, No murmur, gallops or friction rubs, peripheral pulses intact. Respiratory: Bilateral with wheezing and rhonchi throughout all lung cespedes, no other adventitious lung sounds, no use of accessory muscles or acute respiratory distress seen, currently on room air Gastrointestinal: soft, non-distended, non-tender, normoactive bowel sounds. Reports diarrhea : voiding without difficulty. Extremities: moves all extremities well, no edema Skin: clean, dry, intact. No wounds or lesions. Neuro: Alert and oriented x4, cranial nerves intact, no neuro deficits. Psych: normal mood, normal affect, interactive DS: Data Data Completed and Pending Labs on day of discharge: Labs from last 24 hours 05/12/24 05/11/24 11:28 20:44 WBC 12.7 H RBC 3.62 L Hgb 11.2 L Hct 35.0 L MCV 96.7 MCH 30.9 MCHC 32.0 RDW 13.1 Plt Count 185 MPV 10.0 Immature Gran % (Auto) 0.5 Neut % (Auto) 85.9 H Lymph % (Auto) 6.4 L [place] % (Auto) 4.7 Eos % (Auto) 2.1 Baso % (Auto) 0.4 Lymph # (Auto) 0.81 L [place] # (Auto) 0.6 Eos # (Auto) 0.3 Baso # (Auto) 0.1 Abs Immat Gran (auto) 0.06 H Absolute Neuts (auto) 10.9 H Absolute Nucleated RBC 0.000 Nucleated RBC % 0.0 Platelet Estimate Adequate % Immature Plt Fraction 3.4 Anisocytosis 1+ [place] Cells 1+ Schistocytes None seen Sodium 140 Potassium 3.4 Chloride 108 H Carbon Dioxide 22 Anion Gap 10 BUN 7 D Creatinine 0.56 L Estim Creat Clear Calc 82 Estimated GFR > 60 Glucose 113 H POC Capillary Glucose 122 H Calcium 9.0 Total Bilirubin 0.7 AST 23 ALT 20 Alkaline Phosphatase 64 Total Protein 6.0 L Albumin 3.4 L Preliminary micro results at discharge 05/10/24 13:08 Blood Culture - Preliminary Blood 05/10/24 13:08 Blood Culture - Preliminary Blood Discharge Plan Discharge Attending physician on discharge: Tiago Hou Discharging Clinician: Lizeth Barker Anticipated Discharge Date/Time: 05/12/24 12:57 Patient Disposition: Home, Self-Care Activity: as tolerated Diet: as tolerated Discharge Instructions: * Finish your antibiotics even if your feeling better. * you were ordered a albuterol inhaler to use for shortness of breath /wheezing as needed * Follow up with primary care doctor in 1 week * Continue Mucinex and Tessalon Perles as needed Patient Instructions: Antibiotic Form Patient Language: Spanish Stand Alone Forms: General Discharge Information Follow-up/Referrals: Nahun,Christian Jane MD [Primary Care Provider] - 1 Week Discharge Medications: New benzonatate 100 mg Capsule 100 mg PO TID PRN (Reason: Cough) Qty: 30 0RF guaifenesin [Mucus Relief ER] 600 mg Tablet Extended Release 12hr 600 mg PO Q12HR Qty: 20 0RF albuterol sulfate [Ventolin HFA] 90 mcg/actuation HFA aerosol inhaler 1 inh inhalation QID PRN (Reason: shortness of breath or wheezing) Qty: 8.5 0RF amoxicillin-pot clavulanate 875-125 mg tablet 1 tablet PO Q12H Qty: 12 0RF azithromycin 500 mg tablet 500 mg PO DAILY Qty: 4 0RF Continued baclofen 10 mg tablet 10 mg PO TID PRN (Reason: muscle pain) Qty: 12 0RF atorvastatin 40 mg tablet 40 mg PO DAILY levothyroxine [Synthroid] 75 mcg tablet 75 mcg PO QAM alprazolam [Xanax] 0.5 mg tablet 0.5 mg PO QID PRN (Reason: Anxiety) Patient Comments: pt stated she took 1/2 a tab amlodipine 5 mg tablet 5 mg PO DAILY losartan 100 mg tablet 50 mg PO DAILY loperamide 2 mg capsule 2 mg PO DAILY PRN (Reason: loose stool) Qty: 30 3RF Rituxan 10 mg/mL Concentrate 10 mg IV Q4M Patient Comments: IV INFUSION EVERY 4 MONTHS Rx Instructions: FOR RHEUMATOID ARTHRITIS leflunomide 10 mg tablet 10 mg PO QAM duloxetine 60 mg capsule,delayed release(DR/EC) 60 mg PO DAILY hydrocodone-acetaminophen 5-325 mg tablet 1 tablet PO Q8H PRN (Reason: pain) diphenhydramine HCl 25 mg capsule 25 mg PO Q8H PRN (Reason: itching) Rx Instructions: takes with hydrocodone melatonin 3 mg capsule 3 mg PO HS budesonide 3 mg capsule,delayed,extend.release 3 mg PO DAILY PRN (Reason: Colitis flare up) [id number]-vitamin K 18 mg iron-25 mcg Tablet 1 tablet PO DAILY Date of admission: 05/10/24 18:27 Primary Care Provider: Nahun,Christian Jane Admitting Provider: Jaci Oconnell Attending physician on admission: Lizeth Barker Condition: Improved Quality VTE Prophylaxis VTE prophylaxis: pharmacologic ordered
== END 2024-05-12 14:22 | disposition home or self-care (01) | DRG 871 ==
LOC: ANHED 15:12 → ANHIMU 16:07 → ANH3MEDSUR 05-11 21:49
PROVIDERS: Registered Nurse; Student in an Organized Health Care Education/Training Program; Admitting Provider Hospitalist; Emergency Provider Emergency Medicine; PCP Internal Medicine; Visit Provider Nurse Practitioner Acute Care
DX: A41.9 Sepsis, unspecified organism (principal); J12.1 Respiratory syncytial virus pneumonia; J18.9 Pneumonia, unspecified organism; J96.01 Acute respiratory failure with hypoxia; R65.20 Severe sepsis without septic shock; E03.9 Hypothyroidism, unspecified; E87.8 Other disorders of electrolyte and fluid balance, not elsewhere classified; I10 Essential (primary) hypertension; M06.9 Rheumatoid arthritis, unspecified; R19.7 Diarrhea, unspecified; Z87.891 Personal history of nicotine dependence
CPT/HCPCS: 36415; 71045; 80048; 80053; 81003; 82948; 83605; 83735; 83880; 84484; 85025; 85055; 87040; 87637; 87641; 93005; 94667; 96361; 96365; 96366; 96367; 96368; 96375; 99285; A9270; G0378; J0456; J0696; J1650; J2405; J3475; J3480; J7030

== ENCOUNTER 2024-07-15 08:54 | Outpatient (CLI) | payer MEDICARE, SELFPAY ==
--- NOTE | ~2024-07-15 | XR_ITS ---
Left Knee Technique: AP, lateral, and sunrise views were obtained. Clinical History: Pain Findings: No fracture or dislocation is seen. Osseous alignment is anatomic. Minimal degenerative sally nges are present at the knee. Soft tissues are unremarkable. No joint effusion is seen. Impression: Minimal degenerative changes. Reviewed, dictated and finalized at [facility]. Impression: Minimal degenerative changes.
--- NOTE | ~2024-07-15 | XR_ITS ---
Right Knee Technique: AP, lateral, and sunrise views were obtained. Clinical History: Pain Findings: No fracture or dislocation is seen. Osseous alignment is anatomic. Minimal patellar spurrin g noted. Soft tissues are unremarkable. No joint effusion is seen. Impression: Minimal patellar spurring. Reviewed, dictated and finalized at location . Impression: Minimal patellar spurring.
== END 2024-07-15 08:55 | disposition home or self-care (01) ==
LOC: MICIMG 08:57
PROVIDERS: PCP Internal Medicine; Visit Provider Nurse Practitioner
DX: M25.561 Pain in right knee (principal); M76.51 Patellar tendinitis, right knee
CPT/HCPCS: 73562

== ENCOUNTER 2024-10-17 11:40 | Outpatient (CLI) | payer MEDICARE, SELFPAY ==
--- NOTE | ~2024-10-17 | MM_ITS ---
EXAMINATION: MM screening pearl BI w tyson HISTORY: Screening TECHNIQUE: Craniocaudal and mediolateral oblique 3-D tomosynthesis images were obtained and synthetic 2-D images were generated. CAD analysis was submitted and interpreted. COMPARISON: Comparison to multiple prior studies sequentially, with oldest reviewed study dated 02/04. BREAST PARENCHYMAL COMPOSITION: Not dense: There are scattered areas of fibroglandular density. FINDINGS: There is no evidence of suspicious mass, calcification, or architectural distortion to sugg est malignancy in either breast. There has been no suspicious interval change. IMPRESSION: 1. No mammographic evidence of malignancy. 2. Recommend routine screening mammography in one year. BI-RADS Category 1: Negative Reviewed, dictated and finalized at location B.
== END 2024-10-17 11:41 | disposition home or self-care (01) ==
PROVIDERS: PCP Obstetrics & Gynecology; Visit Provider Internal Medicine
DX: Z12.31 Encounter for screening mammogram for malignant neoplasm of breast (principal)
CPT/HCPCS: 77063; 77067